=== PATIENT | female | born 1940 | race Caucasian/White ===

== ENCOUNTER 2020-06-23 09:19 | Inpatient (IN) | payer MEDICARE, OTHER, SELFPAY ==
[2020-06-23] VITALS (35 sets, daily range): BP systolic 102–138; BP diastolic 63–98; PULSE 84–122; RESP 12–30; TEMP 36.1–36.4; O2SAT 82–100; BMI 24.4
--- NOTE | ~2020-06-23 | XR_ITS ---
EXAMINATION: XR chest 2V EXAM DATE: 06/25/2020 10:15 INDICATION: CHF. TECHNIQUE: Frontal and lateral projections of the chest obtained and reviewed. Comparison is made to prior examination from 06/23/2020. FINDINGS: Severe cardiomegaly. Pulmonary vascular congestion. Small to moderate bilateral pleural ef fusions. Adjacent atelectasis. Probable basilar pulmonary edema. Pneumonia not excludable. No pneumot horax. The bones are osteopenic. There are bony degenerative changes. There are old right rib fractu res. Cardiac monitoring device. Bilateral upper lobe granulomata. IMPRESSION: 1. Cardiomegaly, congestion, pulmonary edema. 2. Small to moderate pleural effusions, adjacent atelectasis. Reviewed, dictated and finalized at location A. ENTARY ASSISTANT PRINCIPAL
--- NOTE | ~2020-06-23 | XR_ITS ---
EXAMINATION: XR chest 1V portable EXAM DATE: 06/23/2020 10:05 INDICATION: Cough. TECHNIQUE: Portable AP frontal chest x-ray was obtained. Comparison is made to prior examination from 07/20/2018. FINDINGS: There is cardiomegaly and pulmonary vascular congestion. Small to moderate bilateral pleura l effusions with adjacent atelectasis. Additional bibasilar edema or infection. No pneumothorax. Left upper lobe granuloma. The bones are osteopenic. There are bony degenerative changes. Old right rib fractures. Cardiac monitoring device. Compared to prior study the pleural effusions and adjacent airspace disease have developed. IMPRESSION: 1. Findings consistent with CHF exacerbation. 2. Small to moderate pleural effusions, adjacent subsegmental atelectasis. 3. Infection not excludable. Reviewed, dictated and finalized at location B. OMS OPENER VERIFIER PACKER
--- NOTE | ~2020-06-23 | US_ITS ---
EXAMINATION: US venous doppler LE EXAM DATE: 06/23/2020 11:02 INDICATION: Bilateral leg pain. TECHNIQUE: Multiple grayscale, color flow and Doppler images of the lower extremity deep venous syste ms bilaterally were obtained and reviewed. There is no prior study for comparison. FINDINGS: Right side: The right common femoral, femoral and profunda veins demonstrate normal color flow, respi ratory variation, augmentation and compressibility. Compressibility, color flow confirmed within the right popliteal, posterior tibial, peroneal, and greater saphenous veins. Left side: The left common femoral, femoral and profunda veins demonstrate normal color flow, respira tory variation, augmentation and compressibility. Compressibility, color flow confirmed within the l eft popliteal, posterior tibial, peroneal, and greater saphenous veins. IMPRESSION: 1. No lower extremity deep venous thrombosis bilaterally. Reviewed, dictated and finalized at location B. NOLOGY STRATEGIST
--- NOTE | ~2020-06-23 | CT_ITS ---
EXAMINATION: CT brain wo con INDICATION: Head injury COMPARISON: 10/14/2017 TECHNIQUE: Standard unenhanced head CT. The dose-length product (DLP) was 681.00 mGy-cm. The mA was a djusted according to patient size. Iterative reconstruction technique was employed. FINDINGS: There is a left parietal scalp hematoma. There is no acute intraparenchymal hemorrhage. No evidence of mass lesion. No evidence of acute infarction. There is moderate periventricular and subco rtical hypodensity probably related to small vessel ischemic disease. There is moderate prominence of the sulci and ventricles related to cerebral atrophy. Intracranial calcified cerebral atherosclerosi s is noted. There are no extra-axial collections. There is no mass effect or midline shift. Changes i n the globes are likely from ocular lens surgery. The visualized sinuses and mastoid air cells are w ell aerated. IMPRESSION: 1. Left parietal scalp hematoma without acute intracranial abnormality. 2. Age related findings. Reviewed, dictated and finalized at location A. MATIC DEICER INSPECTOR
--- NOTE | ~2020-06-23 | CT_ITS ---
EXAMINATION: CTA chest PE protocol EXAM DATE: 06/23/2020 11:05 INDICATION: Swollen legs. Abnormal chest x-ray. Cough. TECHNIQUE: Spiral CTA of the chest (pulmonary arteries) was performed with 100 cc Omnipaque 350 intr avenous contrast injection. Images were acquired during the pulmonary arterial phase. Coronal maxi mum intensity projection 3D-reconstructions were created by the technologist on dedicated workstation . Axial, coronal and sagittal reformatted images were reviewed. The dose-length product (DLP) for t his examination was 264.45 mGy-cm. The exposure was tailored according to patient size (auto mA exp osure control), and iterative reconstruction (ASIR) was used as additional dose reduction technique. There is no prior study for comparison. FINDINGS: Pulmonary arteries are well opacified and without intraluminal filling defects. No thora cic aortic dissection. Small to moderate right, small left pleural effusions. There is low lung volu me with scattered bibasilar atelectasis, segmental in the lower lobes. There is moderate sliding saman roesophageal hiatal hernia. Tracheobronchial tree is patent. There is no mediastinal, hilar or axi llary lymphadenopathy. There is no pneumothorax. There is cardiomegaly. There is small pericardia l effusion. Mild emphysema. There is moderate coronary arterial calcification, arterial sclerosis. Upper abdomen is unremarkable. There is thoracic spondylosis without osteoblastic or osteolytic les ions identified. There are old rib fractures. Small right thyroid nodules. IMPRESSION: 1. Cardiomegaly, pulmonary vascular congestion. Small pericardial effusion. 2. Small to moderate right, small pleural effusions. Adjacent bibasilar atelectasis. 3. Moderate-sized hiatal hernia. Reviewed, dictated and finalized at location B. ECTION CONSULTANT IMPRESSION: 1. Cardiomegaly, pulmonary vascular congestion. Small pericardial effusion. 2. Small to moderate right, small pleural effusions. Adjacent bibasilar atelec tasis. 3. Moderate-sized hiatal hernia.
--- NOTE | ~2020-06-23 | XR_ITS ---
EXAMINATION: XR hand LT 2V EXAM DATE: 06/24/2020 08:34 INDICATION: Initial encounter following injury, with pain of the left hand. TECHNIQUE: Frontal and lateral projections of the left hand. There is no prior study for comparison . FINDINGS: Bones are osteopenic. Please note that osteopenia limits sensitivity for detecting fractur es by radiographs. There is mildly widened scapholunate joint space consistent with at least partia l dissociation, age indeterminate. This is better visualized than on the wrist examination from [facility]. There is persistent swelling over the posterior aspect of the wrist. There is posterior angulation to the shaft of the left 5th distal phalanx, probably an old fracture. IMPRESSION: 1. Left wrist soft tissue swelling. Osteopenia limiting sensitivity; consider left wrist CT scan to e valuate possibility of nondisplaced radiographically occult fracture. 2. At least partial scapholunate dissociation, age indeterminate. Reviewed, dictated and finalized at location A. D ARTILLERY OPERATIONS SPECIALIST IMPRESSION: 1. Left wrist soft tissue swelling. Osteopenia limiting sensitivity; consider l eft wrist CT scan to evaluate possibility of nondisplaced radiographically occu lt fracture. 2. At least partial scapholunate dissociation, age indeterminate.
--- NOTE | ~2020-06-23 | XR_ITS ---
EXAMINATION: XR femur RT min 2V EXAM DATE: 06/24/2020 08:34 INDICATION: Initial encounter following injury, with pain of the right femur. TECHNIQUE: Right femur frontal and lateral projections of the proximal aspect, frontal and lateral pr ojections of the lower aspect for review. There is no prior study for comparison. FINDINGS: There are no acute right femur fractures or dislocations identified. There is no subcutane ous gas. There is scattered arteriosclerotic disease. Right inguinal region surgical clips. IMPRESSION: 1. XR femur RT min 2V exam without acute osseous findings. Reviewed, dictated and finalized at location A. ECT INSPECTOR
--- NOTE | ~2020-06-23 | XR_ITS ---
EXAMINATION: XR chest 2V DATE: 06/29/2020 07:52 INDICATION: Pneumonia TECHNIQUE: frontal and lateral views of the chest were obtained. COMPARISON: Chest radiograph dated 06/25/[address] dated 06/23/2020 FINDINGS: Opacities in the bilateral lower lung zones consistent with small bilateral pleural effusions and ass ociated basilar atelectasis and/or pneumonia. Calcified nodule at the left upper lung zone consistent with old granulomatous disease. No pneumothorax. Large hiatal hernia. Cardiomegaly. Old bilateral ri b fractures. Implantable monitoring and evaluation advisor projects over the left upper quadrant. IMPRESSION: 1. Small bilateral pleural effusions with bibasilar atelectasis and/or pneumonia. 2. Cardiomegaly. 3. Large hiatal hernia. Reviewed, dictated and finalized at location A. IT CONTROL ADMINISTRATOR IMPRESSION: 1. Small bilateral pleural effusions with bibasilar atelectasis and/or pneumoni a. 2. Cardiomegaly. 3. Large hiatal hernia.
--- NOTE | ~2020-06-23 | XR_ITS ---
EXAMINATION: XR hip RT 2V w AP pelvis EXAM DATE: 06/24/2020 08:34 INDICATION: Initial encounter following injury, with pain of the right hip, pelvis. TECHNIQUE: Right hip frontal, 'frog leg' projections for interpretation. Frontal projection pelvis. Correlation is made to right femur exam same date. FINDINGS: Smooth right hip femoral head contour, no radiographic evidence of avascular necrosis. The re are no acute fractures or dislocations identified. There is no subcutaneous gas. There are arter ial calcifications, arteriosclerosis. Right inguinal surgical clips. Pelvic ring appears intact. Th ere is moderate bilateral hip arthritis. IMPRESSION: 1. XR hip RT 2V w AP pelvis exam without acute osseous findings. 2. Moderate bilateral hip arthritis. Reviewed, dictated and finalized at location A. ESENTATIVE
--- NOTE | ~2020-06-23 | CT_ITS ---
EXAMINATION: CT cervical spine wo con EXAM DATE: 06/23/2020 10:44 INDICATION: Head injury. TECHNIQUE: Spiral CT of the cervical spine was performed without contrast. Axial images were reviewe d. Coronal and sagittal reformatted images were also reviewed. The dose-length product (DLP) for thi s examination was 149.70 mGy-cm. The exposure was tailored according to patient size (auto mA exposu re control), and iterative reconstruction (ASIR) was used as additional dose reduction technique. Th ere is no prior study for comparison. FINDINGS: There is 3 mm degenerative anterolisthesis C4 on C5. There is no evidence of acute cervical fracture. The odontoid process is intact. Pre-dens space is normal. Prevertebral soft tissue is n ormal. There are no soft tissue abnormalities identified. There is no disc space widening or trauma tic vertebral body subluxation suspected. Overall moderate cervical spondylosis. A detailed level b y level evaluation of spondylosis can be added as addendum if requested. IMPRESSION: 1. No acute cervical fracture. 2. Moderate cervical spondylosis. Reviewed, dictated and finalized at location B. HIC MANAGER
--- NOTE | ~2020-06-23 | XR_ITS ---
EXAMINATION: XR wrist LT min 3V EXAM DATE: 06/23/2020 10:06 INDICATION: Initial encounter following injury, with pain of the left wrist. TECHNIQUE: Left wrist frontal, frontal with ulnar deviation, oblique and lateral projections obtained and reviewed. There is no prior study for comparison. FINDINGS: Bones are osteopenic. Please note that osteopenia limits sensitivity for detecting fractu res by radiographs. Suspicion of an old left distal radial metaphyseal fracture. There are no acute l eft wrist fractures or dislocations identified. There is no subcutaneous gas. There is soft tissue s welling over the wrist dorsally. IMPRESSION: 1. Osteopenia limiting sensitivity but no acute fracture identified. 2. Posterior soft tissue swelling Reviewed, dictated and finalized at location B. RUMENTS SALES REPRESENTATIVE
--- NOTE | 2020-06-23 10:18 | ED.GENADULT ---
HPI - General Adult General Chief complaint: Extremity Injury, Lower Stated complaint: leg issues Time Seen by Provider: 06/23/20 09:21 Source: patient, family and old records reviewed Mode of arrival: ambulatory Limitations: no limitations History of Present Illness HPI narrative: Patient is 79-year-old female who presents to emergency department for evaluation of right leg swelling that developed over the last couple of days patient had also notes that a week ago she fell at home which is described as mechanical noting history of unstable gait falling striking the head patient was not seen for this also noting that she injured the left wrist patient today notes that she is concerned about her right leg swelling which is new. Patient notes some chronic dyspnea attributed to asthma but denies chest pain or URI symptoms. Patient does note history of possible heart failure secondary to atrial fibrillation is not currently on anticoagulation Related Data Home Medications Medication Instructions Recorded Confirmed albuterol sulfate 90 mcg/actuation 2 puff INHALATION Q4-6H PRN gm 07/29/19 aerosol inhaler atorvastatin 40 mg tablet 40 mg PO DAILY 07/29/19 calcitriol 0.25 mcg capsule 0.25 mcg PO DAILY 07/29/19 carvedilol 6.25 mg tablet 6.25 mg PO Q12H 07/29/19 clopidogrel 75 mg tablet 75 mg PO DAILY 07/29/19 ergocalciferol (vitamin D2) 1,250 1,250 mcg PO WEEKLY 07/29/19 mcg (50,000 unit) capsule insulin lispro 100 unit/mL 1 sliding scale dose SUB-Q 07/29/19 subcutaneous solution USEASDIRECTD mometasone-formoterol HFA 100 2 puff INHALATION Q12H 07/29/19 mcg-5 mcg/actuation aerosol inhaler pantoprazole 20 mg tablet,delayed 20 mg PO QAM 07/29/19 release polyethylene glycol 3350 17 17 gm PO DAILY 07/29/19 gram/dose oral powder thyroid (pork) 30 mg tablet 30 mg PO .SUN-SUN-SUN tablet 07/29/19 insulin glargine 100 unit/mL 15 unit SUB-Q BID ml 07/30/19 subcutaneous solution Allergies Allergy/AdvReac Type Severity Reaction Status Date / Time mercury (elemental) Allergy Intermediate Rash Verified 01/28/20 14:17 lisinopril Allergy Mild raise Verified 01/28/20 14:17 potassium erythromycin base Allergy Unknown rash Verified 01/28/20 14:17 Macrolide Antibiotics Allergy Unknown Rash Verified 01/28/20 14:17 Penicillins Allergy Unknown Rash Verified 01/28/20 14:17 Sulfa (Sulfonamide Allergy Unknown Rash Verified 01/28/20 14:17 Antibiotics) MYCIN Allergy Mild Rash Uncoded 01/28/20 14:17 Review of Systems Review of Systems: All systems reviewed & are unremarkable except as noted in HPI and below PMFSH Past Medical History Medical History GERD (gastroesophageal reflux disease) H/O gastric ulcer Paroxysmal A-fib Surgical History Surgical History S/P laparoscopic-assisted sigmoidectomy Status post partial thyroidectomy Family History Family History Mother Family history of diabetes mellitus in first degree relative Other Diabetes mellitus Social History Social History Smoking status: Never smoker Second hand tobacco smoke exposure: Yes Alcohol intake: current Drinks per week: 4 Substance use: never Substance use type: does not use Gender identity (if verbalized by the patient): Female Exam Narrative: Exam Narrative: GENERAL: Ill-appearing, well-nourished, and in no acute distress. HEAD: Normocephalic, atraumatic. EYES: PERRLA and EOMI. ENT: Nares clear, no rhinorrhea or epistaxis. Mucous membranes moist. NECK: Supple. No adenopathy or masses. CHEST: Clear to auscultation. No respiratory distress. No wheezes rales or rhonchi HEART: Irregularly irregular rhythm, normal rate. No murmur heard. Normal peripheral pulses. ABDOMEN: Soft, nontender, no
[2020-06-23 10:20] LABS: Basophils Percent Auto 0.6 % (0.2-1.2); Eosinophils Absolute Auto 0.2 K/mm3 (0-0.3); Eosinophils Percent Auto 4.2 % (0-4.4); Hematocrit 32.6 % (37.0-47.0); Hemoglobin 9.6 g/dL (12.0-15.0); Immature Granulocyte Absolute 0.02 K/mm3 (0.00-0.031); Immature Granulocyte Percent A 0.4 % (0-0.5); Lymphocytes Absolute Auto 0.71 K/mm3 (0.9-3.2); Lymphocytes Percent Auto 13.7 % (18.3-44.2); Mean Corpuscular HGB Conc 29.4 g/dl (32-36); Mean Corpuscular Hemoglobin 26.5 pg (26-34); Mean Corpuscular Volume 90.1 fl (80-100); Monocytes Absolute Auto 0.5 K/mm3 (0.1-0.6); Monocytes Percent Auto 9.2 % (2.6-8.5); Neutrophils Absolute Auto 3.7 K/mm3 (1.3-6.7); Neutrophils Percent Auto 71.9 % (45.5-73.1); Platelet Count Result 279 k/mm3 (150-375); Red Blood Count 3.62 M/mm3 (4.2-5.4); White Blood Count 5.2 K/mm3 (4.5-10.0)
[2020-06-23 10:29] LABS: INR 1.1; Partial Thromboplastin Time 25.6 SECONDS (22.3-36.8); Prothrombin Time 14.5 Seconds (11.1-14.7)
[2020-06-23 10:31] LABS: Hypochromasia 1+ (NORMAL); Ovalocytes 1+ (NORMAL); Platelet Estimate Adequate (Adequate)
[2020-06-23] MEDS: ALBUTEROL SULFATE NEB 2.5 MG/0.5 ML INH 5 MG INHALATION ×2 (10:31→21:29)
[2020-06-23] MEDS: IPRATROPIUM BR 0.02% INH SOLN 0.5 MG/2.5 ML VIAL INHALATION ×2 (10:31→21:29)
[2020-06-23 10:32] LABS: D Dimer 2.55 ug/mL (<0.48)
[2020-06-23 10:37] LABS: Alanine Aminotransferase 11 U/L (4-35); Albumin Level 2.8 g/dL (3.5-5.1); Alkaline Phosphatase 114 U/L (38-126); Anion Gap 3 mmol/L (8-16); Aspartate Amino Transferase 21 U/L (14-36); Bilirubin,Total 0.4 mg/dL (0.2-1.3); Blood Urea Nitrogen 12 mg/dL (7-17); Calcium 8.8 mg/dL (8.4-10.2); Carbon Dioxide 31 mmol/L (22-30); Chloride 105 mmol/L (98-107); Estimated CRCL calculation 44 ml/min; Estimated Glomerular Filt Rate > 60; Glucose 113 mg/dL (65-105); Magnesium 1.4 mg/dL (1.6-2.3); Potassium 3.9 mmol/L (3.4-5.0); Sodium 139 mmol/L (137-145)
[2020-06-23 10:38] LABS: Alveolar/Arterial O2 Gradient 48.8 mmHg; Base Excess ABG -2.4 mEq/l (+/-2.0); Fractional Inspired Oxygen 21 %; HCO3 ABG 24.5 mEq/l (22.0-26.0); Oxygen Content ABG 10.4 %vol (16.0-22.0); Oxyhemoglobin 67.9 % THb (90.0-100.0); PCO2 ABG 51.8 mmHg (35.0-45.0); PO2 FiO2 Ratio Arterial Blood 1.85 %; Total Hemoglobin 10.9 g/dL (12.0-18.0); pH ABG 7.293 (7.350-7.450)
[2020-06-23 10:44] LABS: NT Pro B Type Natriuretic Pept 8010 PG/ML (5-100)
[2020-06-23 10:46] LABS: Device ROOM AIR; Modified Allen's Test Pass; Oxygen Saturation ABG 66.8 % (95.0-100.0); PO2 ABG 38.9 mmHg (80.0-100.0); Site Drawn LEFT RADIAL
[2020-06-23 10:55] LABS: Creatine Kinase 28 U/L (30-135); Phosphorus 3.9 mg/dL (2.5-4.5)
[2020-06-23] MEDS: FUROSEMIDE INJ 40 MG/4 ML VIAL IV PUSH (11:17)
[2020-06-23 11:50] LABS: Add Urine Microscopic? NO; Appearance Urine Clear (Clear); Bilirubin Urine Negative (Negative); Blood Urine Negative (Negative); Color Urine Yellow (Yellow); Glucose Urine UA Negative (Negative); Ketones Urine Negative (Negative); Leukocyte Esterase Ur Negative LEU/UL (Negative); Nitrate Urine Negative (Negative); Protein Urine Negative (Negative); Specific Grav Ur 1.026 (1.001-1.035); Squamous Epithelial Cell Urine Rare /hpf (Few); Urobilinogen Urine Negative mg/dL (<2.0); WBC Urine 0-3 /hpf
[2020-06-23 12:31] LABS: Troponin I < 0.012 ng/mL (0.000-0.034)
--- NOTE | 2020-06-23 12:36 | ECG_ITS ---
Measurements Intervals [place] Rate: 100 P: TN: 0 QRS: 18 QRSD: 94 T: 41 QT: 340 QTc: 440 Interpretive Statements ATRIAL FIBRILLATION WITH RAPID VENTRICULAR RESPONSE BASELINE ARTIFACT- III ABNORMAL ECG Electronically Signed On 06-23-2020 13:17:03 COMMERCIAL LINES INSURANCE AGENT by Greg Barr D.O.
--- NOTE | 2020-06-23 13:49 | PM.IMHP ---
H&P: HPI History of Present Illness Date/Time: 06/23/20 13:49 Chief Complaint: Swelling to her lower extremities Narrative: Rina Latif is a 79 year old female of right leg swelling. She has some abrasions to her right leg and venous stasis ulcers that are weeping to the left lower extremity. The patient tells me that she has had a broken leg to the right side that she has had [place] in the past. The patient stated that about a week ago she fell at home was a mechanical fall Q fell on stable and fell and hit her head which shows a large hematoma to the back of her head and a large purple bruise to the left side of her neck. She said she did not feel dizzy or have any chest pain or palpitations prior to falling. She tells me that she has not had any history of irregular heart rate or congestive heart failure. Cardiology has been consulted for new onset of AFib which is paroxysmal I am possible CHF. Patient is not on any anticoagulation.9.6 and 32.6. Patient is awake and very talkative. However on her ABGs her pH of 7.293. CO2 was 51.8 PO2 is 38.9. Could this possibly be venous drawn not arterial. Vascular congestion. Small pericardial effusion. Small to moderate right small pleural effusions. Adjacent bibasilar atelectasis. Moderate size hiatal hernia. Venous Dopplers no lower extremity deep vein thrombosis bilaterally. Cervical spine CT was read as no acute cervical fracture moderate cervical spondylosis. Head CT left parietal scalp hematoma without a to intracranial abnormality. Age-related findings. D-dimer 2.55 however her venous Doppler and CTA were negative. BNP 8010. Patient was given a nebulizer treatment and Lasix. Cardiology has been consulted. Heart rate is 93-105. Blood pressure 108/74. Pulse ox is 99% on room air. Patient is being admitted for observation date of service is 06/23/2020. Review of Systems Review of Systems: All systems reviewed & are unremarkable except as noted in HPI and below Constitutional: Constitutional: Reports as per HPI and Reports no additional constitutional complaints Eyes: Eyes: Reports as per HPI and Reports no additional eye complaints ENT: Reports system reviewed and no additional complaints, except as documented and Reports Normal hearing present Cardiovascular: Cardiovascular: Reports no additional cardiovascular complaints Respiratory: Respiratory: Reports no additional respiratory complaints and Reports no additional respiratory complaints Gastrointestinal: Gastrointestinal: Reports as per HPI and Reports no additional gastrointestinal complaints Musculoskeletal: Musculoskeletal: Reports no additional musculoskeletal complaints Integumentary/Breasts: Skin/Breast: Reports system reviewed and no additional complaints, except as docu and Reports as per HPI Neurologic: Reports system reviewed and no additional complaints, except as documented, Reports as per HPI and Reports Normal hearing present Psychiatric: Psychiatric: Reports no additional psychiatric complaints and Reports as per HPI Endocrine: Endocrine: Reports no additional endocrine complaints Hematologic/Lymphatic: Hematologic/Lymphatic: Reports no additional hematologic/lymphatic complaints Allergic/Immunologic: Allergic/Immunologic: Reports no additional allergic/immunologic complaints [facility] Past Medical History Medical History (Updated 06/23/20 @ 14:22 by Graciela Aguiar NP) Acute exacerbation of CHF (congestive heart failure) Acute exacerbation of chronic obstructive pulmonary disease GERD (gastroesophageal reflux disease) H/O gastric ulcer Hyperlipidemia Hypothyroidism Paroxysmal A-fib Type 1 diabetes mellitus with hyperglycemia Venous stasis Surgical History Surgical History (Updated 06/23/20 @ 14:06 by Graciela Aguiar NP) History of heart artery stent X2 History of loop recorder S/P laparoscopic-assisted sigmoidectomy Status post partial thyroidectomy Family History Family History
[2020-06-23 14:04] LABS: Glucose Point of Care 43 (65-105)
--- NOTE | 2020-06-23 14:07 | PC.NURSE ---
Pt. BG 43, EDP aware. EDP requested to give Pt. food via verbal order readback. Pt. AOx4 at this time. Pt. given a box lunch and a tray
[2020-06-23 14:43] LABS: Glucose Point of Care 41 (65-105)
[2020-06-23] MEDS: DEXTROSE 50% 25 GM/50 ML SYRINGE IV PUSH (14:49)
--- NOTE | 2020-06-23 15:02 | PCOTNOTE ---
OT evaluation attempted, patient not yet admitted to floor. Will attempt OT evaluation at later time.
[2020-06-23 15:20] LABS: Glucose Point of Care 148 (65-105)
--- NOTE | 2020-06-23 15:20 | ADMGEN ---
This patient, Rina Latif, was admitted to 2 Medical Room 260-. Patient/family oriented to hospital policies and general routines including ID bracelet, bed and alarms, visiting hours, pain management, procedures, bathroom and other care routines, personal items, smoking policy, room service/diet, and visiting hours. Information on how to activate the Rapid Response Team has been discussed. Patient/Family are encouraged to report perceived risks to care and to ask questions if they do not understand what they are told or what they should do.
[2020-06-23] MEDS: SILVERGEL (ELTA) 45 ML 1 APPLIC TOPICAL (16:22)
[2020-06-23 16:24] LABS: Glucose Point of Care 237 (65-105)
[2020-06-23] MEDS: INSULIN GLARGINE (*BKC) 100 UNITS/ML 15 UNITS SUB-Q (18:14)
[2020-06-23 18:21] LABS: Glucose Point of Care 342 (65-105)
--- NOTE | 2020-06-23 18:21 | PC.NURSE ---
Patient has been extremely argumentative since arrival to the floor. Discussed plan of care, medications, hospital environment details, etc. Every conversation had with patient has ended in an argument with staff. Patient angry and upset in regards to insulin orders. In the ER, patients glucose prior to arrival on floor was 41. Checked patient when she arrived to floor and she was 237 with sliding scale insulin orders. Spoke with Graciela Aguiar who stated to hold Novolog and recheck patient tonight, as she is prone to hypoglycemia. Discussed this with patient and she again is argumentative and unwilling to listen/be receptive to education. Graciela reordered patients home Lantus that she takes at 0600 and 1800. Discussed with patient that I was going to recheck her glucose and administer Lantus if her blood sugar was high enough. Patient agreeable to this but then again becomes angry stating that we are withholding her insulin and making her blood sugars high by not giving her the Novolog. Pt has had 2 full meals since arrival to floor as well as a meal in the ER, in a 3 hour time span. Yet, states it's your fault my sugar is high. I'm just trying to not go blind ..
[2020-06-23] MEDS: DOCUSATE SODIUM 100 MG CAPSULE PO (20:35)
[2020-06-23] MEDS: carvediloL 12.5 MG TABLET PO (20:35)
[2020-06-23 20:45] LABS: Glucose Point of Care 448 (65-105)
[2020-06-23] MEDS: INSULIN ASPART (*BKC) 100 UNITS/ML 6 UNITS SUB-Q (20:50)
[2020-06-23] MEDS: INSULIN ASPART (*BKC) 100 UNITS/ML 8 UNITS SUB-Q (22:55)
--- NOTE | 2020-06-23 23:00 | PC.NURSE ---
Blood sugar remains 421 and 8 units of Novolog given. Pt has very poor memory and does not remember receiving insulin 2 hours ago.
[2020-06-24] VITALS (19 sets, daily range): BP systolic 104–141; BP diastolic 57–85; PULSE 87–125; RESP 15–20; TEMP 36.2–36.8; O2SAT 90–98; BMI 24.4
--- NOTE | 2020-06-24 | ECHO_ITS ---
Patient Info Name: Rina Latif Age: 79 years : 1940 Gender: Female Ht: 67 in Wt: 156 lbs BSA: 1.84 m2 HR: 106 bpm BP: 116 / 73 mmHg Heart Rhythm: Atrial Fibrillation Technical Quality: Good Exam Date: 06/24/2020 9:25 AM Exam Location: [facility] Exam Room: 260 Patient Status: Outpatient Admit Date: 06/23/2020 Staff Ordering Physician: Graciela Aguiar NP Manager Editorial: Stella Hunt RDCS Attending Provider: Miles Hodgson MD Referring Physician: Stefania MEREDITH; Exam Type: CA echo doppler color flow Study Info Indications - elevated bnp cardiolmegaly Complete two-dimensional, color flow and Doppler transthoracic echocardiogram is performed. Summary 1. Left ventricular systolic function is normal, estimated at 65-70%. 2. There is mildly increased left ventricular wall thickness. 3. The left ventricular diastolic function is indeterminate. 4. Right atrial chamber dimension is moderate to severely enlarged. 5. Left atrial chamber dimension is moderately enlarged. 6. There is mild mitral valve regurgitation. 7. There is moderate to severe tricuspid valve regurgitation. 8. Mild pulmonary hypertension, estimated pulmonary arterial systolic pressure is 42 mmHg. 9. Dilated inferior vena cava with <50% collapse upon inspiration consistent with elevated right atrial pressure, 10 mmHg. Left Ventricle Left ventricular chamber dimension is normal. Left ventricular systolic function is normal, estimated at 65-70%. There is mildly increased left ventricular wall thickness. The left ventricular diastolic function is indeterminate. Right Ventricle Right ventricular chamber dimension is normal. Right ventricular systolic function is normal. Left Atria Left atrial chamber dimension is moderately enlarged. Right Atria Right atrial chamber dimension is moderate to severely enlarged. Aortic Valve The aortic valve is not well visualized. There is mild aortic valve sclerosis. There is no aortic valve stenosis. There is trace aortic valve regurgitation. Pulmonic Valve The pulmonic valve is not well visualized. There is mild pulmonic regurgitation. Mitral Valve The mitral valve has thickened leaflets and calcified leaflets. There is mild mitral valve regurgitation. The mitral valve annulus is severely calcified. Tricuspid Valve The tricuspid valve leaflets are normal. There is moderate to severe tricuspid valve regurgitation. Mild pulmonary hypertension, estimated pulmonary arterial systolic pressure is 42 mmHg. Pericardium/Pleural The pericardium appears normal. There is small pericardial effusion. Inferior Vena Cava Dilated inferior vena cava with <50% collapse upon inspiration consistent with elevated right atrial pressure, 10 mmHg. Aorta The aortic root size at the sinus of Valsalva is normal. There is mild aortic atherosclerosis. Left Ventricular Outflow Tract Name Value Normal LVOT 2D LVOT Diameter 2.0 cm LVOT Doppler LVOT Peak Gradient 5 mmHg LVOT Mean Gradient 3 mmHg LVOT VTI
[2020-06-24 01:22] LABS: Glucose Point of Care 421 (65-105)
[2020-06-24 01:22] LABS: Glucose Point of Care 228 (65-105)
[2020-06-24] MEDS: ALBUTEROL SULFATE NEB 2.5 MG/0.5 ML INH 5 MG INHALATION ×4 (02:57→21:17)
[2020-06-24] MEDS: IPRATROPIUM BR 0.02% INH SOLN 0.5 MG/2.5 ML VIAL INHALATION ×4 (02:57→21:17)
[2020-06-24] MEDS: ALBUTEROL SULFATE (*SP) AEROSOL 1 PUFF 2 PUFF INHALATION (05:50)
[2020-06-24] MEDS: DOCUSATE SODIUM 100 MG CAPSULE PO ×3 (05:51→20:46)
[2020-06-24 06:48] LABS: Basophils Percent Auto 0.5 % (0.2-1.2); Eosinophils Absolute Auto 0.2 K/mm3 (0-0.3); Eosinophils Percent Auto 2.8 % (0-4.4); Hematocrit 33.5 % (37.0-47.0); Hemoglobin 9.7 g/dL (12.0-15.0); Immature Granulocyte Absolute 0.02 K/mm3 (0.00-0.031); Immature Granulocyte Percent A 0.3 % (0-0.5); Lymphocytes Absolute Auto 0.63 K/mm3 (0.9-3.2); Lymphocytes Percent Auto 10.4 % (18.3-44.2); Mean Corpuscular Hemoglobin 26.2 pg (26-34); Mean Corpuscular Volume 90.5 fl (80-100); Monocytes Absolute Auto 0.5 K/mm3 (0.1-0.6); Monocytes Percent Auto 8.6 % (2.6-8.5); Neutrophils Absolute Auto 4.7 K/mm3 (1.3-6.7); Neutrophils Percent Auto 77.4 % (45.5-73.1); Platelet Count Result 269 k/mm3 (150-375); White Blood Count 6.1 K/mm3 (4.5-10.0)
[2020-06-24 07:08] LABS: Hypochromasia 2+ (NORMAL); Ovalocytes 1+ (NORMAL); Platelet Estimate Increased (Adequate)
[2020-06-24 07:29] LABS: Glucose Point of Care 38 (65-105)
[2020-06-24 07:29] LABS: Glucose Point of Care 53 (65-105)
[2020-06-24 07:29] LABS: Glucose Point of Care 46 (65-105)
[2020-06-24 07:29] LABS: Glucose Point of Care 167 (65-105)
--- NOTE | 2020-06-24 07:57 | PCOTNOTE ---
Attempted OT evaluation - Patient off floor for testing. Will continue to attempt.
[2020-06-24 08:06] LABS: Alanine Aminotransferase 10 U/L (4-35); Albumin Level 2.9 g/dL (3.5-5.1); Alkaline Phosphatase 103 U/L (38-126); Anion Gap 3 mmol/L (8-16); Aspartate Amino Transferase 19 U/L (14-36); Bilirubin,Total 0.4 mg/dL (0.2-1.3); Blood Urea Nitrogen 22 mg/dL (7-17); CRP 1.5 mg/dL (<1.0); Calcium 8.7 mg/dL (8.4-10.2); Carbon Dioxide 35 mmol/L (22-30); Chloride 101 mmol/L (98-107); Estimated CRCL calculation 36 ml/min; Estimated Glomerular Filt Rate 48; Glucose 112 mg/dL (65-105); Magnesium 1.3 mg/dL (1.6-2.3); Potassium 4.4 mmol/L (3.4-5.0); Sodium 139 mmol/L (137-145)
--- NOTE | 2020-06-24 08:10 | PC.NURSE ---
Patient to XR per stretcher.
--- NOTE | 2020-06-24 09:21 | PCOTNOTE ---
Attempted OT evaluation again this AM. Patient receiving breathing treatment then an echocardiogram. Will continue to attempt.
[2020-06-24] MEDS: CLOPIDOGREL BISULFATE 75 MG TABLET PO (09:23)
[2020-06-24] MEDS: carvediloL 12.5 MG TABLET PO ×2 (09:23→20:47)
[2020-06-24] MEDS: ATORVASTATIN 40 MG TABLET PO (09:23)
[2020-06-24] MEDS: FUROSEMIDE INJ 40 MG/4 ML VIAL IV PUSH ×2 (09:23→17:18)
[2020-06-24] MEDS: amLODIPine BESYLATE 5 MG TABLET PO (09:23)
[2020-06-24] MEDS: PANTOPRAZOLE SOD SESQUIHYDRATE 20 MG TAB PO (09:23)
--- NOTE | 2020-06-24 09:30 | PC.NURSE ---
Patient return from XR.
[2020-06-24 10:10] LABS: Free T4 Free Thyroxine Reflex 1.13 ng/dL (0.78-2.19)
[2020-06-24 11:33] LABS: Total Triiodothyronine (T3) 1.03 NG/ML (0.97-1.69)
[2020-06-24 11:54] LABS: Glucose Point of Care 286 (65-105)
[2020-06-24] MEDS: INSULIN ASPART (*BKC) 100 UNITS/ML SUB-Q ×2 (11:56→11:57)
--- NOTE | 2020-06-24 14:30 | PM.IMPN ---
Progress Note: A&P Assessment and Plan (1) Paroxysmal A-fib: Code(s): I48.0 - Paroxysmal atrial fibrillation Status: Chronic Assessment and Plan: This is chronic ice on EKG back from 2017. She is not anticoagulated because she has frequent falls. Continue with her current medications she is rate controlled. She was negative for PE and DVT today. (2) Acute exacerbation of CHF (congestive heart failure): Code(s): I50.9 - Heart failure, unspecified Status: Chronic Assessment and Plan: I did obtain an echo. The patient denies fact that she has CHF. Continue with Coreg and she has been started on IV Lasix she has some edema to her lower extremities. Chest x-ray was read as cardiomegaly. (3) Type 1 diabetes mellitus with hyperglycemia: Code(s): E10.65 - Type 1 diabetes mellitus with hyperglycemia Status: Chronic Assessment and Plan: Continue with her long-acting insulin will do sliding scale insulin as well. Patient's blood sugars 48 and she has a history of having hypoglycemia. Patient is been asking for food in the emergency room. (4) Venous stasis: Code(s): I87.8 - Other specified disorders of veins Status: Chronic Assessment and Plan: Patient tells me she has been dealing with this for years. Wound care consult has been placed. (5) Hypothyroidism: Code(s): E03.9 - Hypothyroidism, unspecified Status: Chronic Assessment and Plan: Check thyroid level and continue with her levothyroxine. Patient has had a history of having a partial thyroidectomy in the past. (6) Hyperlipidemia: Code(s): E78.5 - Hyperlipidemia, unspecified Status: Acute Assessment and Plan: Continue with atorvastatin. (7) Acute exacerbation of chronic obstructive pulmonary disease: Code(s): J44.1 - Chronic obstructive pulmonary disease with (acute) exacerbation Status: Chronic Assessment and Plan: Continue with Dulera if formulary. (8) Gait instability: Code(s): R26.81 - Unsteadiness on feet Status: Acute Assessment and Plan: PT and OT evaluation patient has a large hematoma to the back of her head and bruising to her neck. CT of the brain was found to be negative. CT of the neck was negative. Patient states that she just loses her balance. (9) Chronic kidney disease, stage III (moderate): Code(s): N18.3 - Chronic kidney disease, stage 3 (moderate) Status: Acute Assessment and Plan: Patient's GFR is normal today. (10) History of coronary artery stent placement: Code(s): Z95.5 - Presence of coronary angioplasty implant and graft Status: Acute Assessment and Plan: Patient is on Plavix and she is had 2 stents in the past. Subjective Date/time seen: 06/24/20 14:30 Interval history: Patient was seen during the morning rounds today. Patient has mild shortness of breath no chest pain. Patient denies any abdominal pain nausea vomiting or diarrhea. More stable. Review of Systems Review of Systems: All systems reviewed & are unremarkable except as noted in HPI and below Constitutional: Constitutional: Reports as per HPI and Reports no additional constitutional complaints Eyes: Eyes: Reports as per HPI and Reports no additional eye complaints ENT: Reports system reviewed and no additional complaints, except as documented and Reports Normal hearing present Cardiovascular: Cardiovascular: Reports no additional cardiovascular complaints Respiratory: Respiratory: Reports no additional respiratory complaints and Reports no additional respiratory complaints Gastrointestinal: Gastrointestinal: Reports as per HPI and Reports no additional gastrointestinal complaints Musculoskeletal: Musculoskeletal: Reports no additional musculoskeletal complaints Integumentary/Breasts: Skin/Breast: Reports system reviewed and no additional complaints, except as docu and Reports as per HPI
[2020-06-24 17:06] LABS: Glucose Point of Care 428 (65-105)
[2020-06-24] MEDS: POTASSIUM CHLORIDE 20 MEQ PACKET (FOR LIQUID) PO (17:18)
[2020-06-24] MEDS: SILVERGEL (ELTA) 45 ML 1 APPLIC TOPICAL (17:19)
[2020-06-24] MEDS: INSULIN ASPART (*BKC) 100 UNITS/ML 15 UNITS SUB-Q (17:20)
--- NOTE | 2020-06-24 17:33 | PC.NURSE ---
Patients blood sugar for dinner is 428. Called to notify Dr. Stearns and received orders to give her 15units Novolog with evening meal and increase Lantus to 20U (from 15U). Administered patients insulin with evening meal and she began throwing a fit. She is stating this is entirely too much insulin. Again, reiterated and educated in regards to glucose results. However, patient not receptive or willing to listen to staff education. Patient stating to SNT, my nurse is going to kill me tonight. She gave me too much insulin and I'm going to tonight.
[2020-06-24 18:29] LABS: Glucose Point of Care 368 (65-105)
[2020-06-24 20:19] LABS: Glucose Point of Care 251 (65-105)
[2020-06-24] MEDS: MAGNESIUM OXIDE 200 MG TABLET PO (20:45)
[2020-06-24] MEDS: HEPARIN SODIUM 5,000 UNITS/ML VIAL 5000 UNITS SUB-Q (20:48)
[2020-06-24] MEDS: INSULIN GLARGINE (*BKC) 100 UNITS/ML 20 UNITS SUB-Q (20:48)
[2020-06-25] VITALS (24 sets, daily range): BP systolic 94–121; BP diastolic 48–81; PULSE 95–124; RESP 16–20; TEMP 36.3–37.1; O2SAT 78–99
[2020-06-25] MEDS: IPRATROPIUM BR 0.02% INH SOLN 0.5 MG/2.5 ML VIAL INHALATION ×4 (01:56→20:42)
[2020-06-25] MEDS: ALBUTEROL SULFATE NEB 2.5 MG/0.5 ML INH 5 MG INHALATION ×4 (01:56→20:42)
[2020-06-25] MEDS: ACETAMINOPHEN 325 MG TABLET 650 MG PO (06:18)
[2020-06-25] MEDS: DOCUSATE SODIUM 100 MG CAPSULE PO ×3 (06:18→21:58)
[2020-06-25 07:45] LABS: Glucose Point of Care 184 (65-105)
--- NOTE | 2020-06-25 08:42 | PM.IMPN ---
Progress Note: A&P Assessment and Plan (1) Paroxysmal A-fib: Code(s): I48.0 - Paroxysmal atrial fibrillation Status: Chronic Assessment and Plan: This is chronic ice on EKG back from 2017. She is not anticoagulated because she has frequent falls. Continue with her current medications she is rate controlled. She was negative for PE and DVT today. (2) Acute exacerbation of CHF (congestive heart failure): Code(s): I50.9 - Heart failure, unspecified Status: Chronic Assessment and Plan: I did obtain an echo. The patient denies fact that she has CHF. Continue with Coreg and she has been started on IV Lasix she has some edema to her lower extremities. Chest x-ray was read as cardiomegaly. (3) Type 1 diabetes mellitus with hyperglycemia: Code(s): E10.65 - Type 1 diabetes mellitus with hyperglycemia Status: Chronic Assessment and Plan: Continue with her long-acting insulin will do sliding scale insulin as well. Patient's blood sugars 48 and she has a history of having hypoglycemia. Patient is been asking for food in the emergency room. (4) Venous stasis: Code(s): I87.8 - Other specified disorders of veins Status: Chronic Assessment and Plan: Patient tells me she has been dealing with this for years. Wound care consult has been placed. (5) Hypothyroidism: Code(s): E03.9 - Hypothyroidism, unspecified Status: Chronic Assessment and Plan: Check thyroid level and continue with her levothyroxine. Patient has had a history of having a partial thyroidectomy in the past. (6) Hyperlipidemia: Code(s): E78.5 - Hyperlipidemia, unspecified Status: Acute Assessment and Plan: Continue with atorvastatin. (7) Acute exacerbation of chronic obstructive pulmonary disease: Code(s): J44.1 - Chronic obstructive pulmonary disease with (acute) exacerbation Status: Chronic Assessment and Plan: Continue with Dulera if formulary. (8) Gait instability: Code(s): R26.81 - Unsteadiness on feet Status: Acute Assessment and Plan: PT and OT evaluation patient has a large hematoma to the back of her head and bruising to her neck. CT of the brain was found to be negative. CT of the neck was negative. Patient states that she just loses her balance. (9) Chronic kidney disease, stage III (moderate): Code(s): N18.3 - Chronic kidney disease, stage 3 (moderate) Status: Acute Assessment and Plan: Patient's GFR is normal today. (10) History of coronary artery stent placement: Code(s): Z95.5 - Presence of coronary angioplasty implant and graft Status: Acute Assessment and Plan: Patient is on Plavix and she is had 2 stents in the past. Additional Plan Plan is to continue current treatment. Increase activity. Possible discharge tomorrow. Left hand x-ray noted. Patient advised to wear his bandage. Subjective Date/time seen: 06/25/20 08:42 Interval history: Patient was seen during the morning rounds today. Patient has mild shortness of breath no chest pain. Patient denies any abdominal pain nausea vomiting or diarrhea. More stable. No new complaints today. Review of Systems Review of Systems: All systems reviewed & are unremarkable except as noted in HPI and below Constitutional: Constitutional: Reports as per HPI and Reports no additional constitutional complaints Eyes: Eyes: Reports as per HPI and Reports no additional eye complaints ENT: Reports system reviewed and no additional complaints, except as documented and Reports Normal hearing present Cardiovascular: Cardiovascular: Reports no additional cardiovascular complaints Respiratory: Respiratory: Reports no additional respiratory complaints and Reports no additional respiratory complaints Gastrointestinal: Gastrointestinal: Reports as per HPI and Reports no additional gastrointestinal complaints Musculoskeletal: Mus
[2020-06-25] MEDS: POTASSIUM CHLORIDE 20 MEQ PACKET (FOR LIQUID) PO ×2 (08:58→16:28)
[2020-06-25] MEDS: THYROID 60 MG TABLET PO (08:58)
[2020-06-25] MEDS: CLOPIDOGREL BISULFATE 75 MG TABLET PO (08:59)
[2020-06-25] MEDS: PANTOPRAZOLE SOD SESQUIHYDRATE 20 MG TAB PO (08:59)
[2020-06-25] MEDS: ERGOCALCIFEROL 50,000 UNIT CAPSULE 50000 UNITS PO (08:59)
[2020-06-25] MEDS: INSULIN ASPART (*BKC) 100 UNITS/ML SUB-Q ×4 (09:01→16:30)
[2020-06-25] MEDS: INSULIN GLARGINE (*BKC) 100 UNITS/ML 20 UNITS SUB-Q ×2 (09:01→20:15)
[2020-06-25] MEDS: amLODIPine BESYLATE 5 MG TABLET PO (09:04)
[2020-06-25] MEDS: HEPARIN SODIUM 5,000 UNITS/ML VIAL 5000 UNITS SUB-Q ×2 (09:04→20:17)
[2020-06-25] MEDS: MAGNESIUM OXIDE 200 MG TABLET PO ×2 (09:04→20:17)
[2020-06-25] MEDS: calcitrioL 0.25 MCG CAPSULE PO (09:04)
[2020-06-25] MEDS: ATORVASTATIN 40 MG TABLET PO (09:05)
[2020-06-25] MEDS: carvediloL 12.5 MG TABLET PO ×2 (09:05→20:17)
[2020-06-25] MEDS: FUROSEMIDE INJ 40 MG/4 ML VIAL IV PUSH ×2 (09:06→16:28)
[2020-06-25] MEDS: SILVERGEL (ELTA) 45 ML 1 APPLIC TOPICAL (09:07)
[2020-06-25 12:07] LABS: Glucose Point of Care 180 (65-105)
[2020-06-25 16:25] LABS: Glucose Point of Care 239 (65-105)
[2020-06-25 18:12] LABS: Anion Gap 1 mmol/L (8-16); Blood Urea Nitrogen 38 mg/dL (7-17); Calcium 8.5 mg/dL (8.4-10.2); Carbon Dioxide 38 mmol/L (22-30); Chloride 97 mmol/L (98-107); Estimated CRCL calculation 31 ml/min; Estimated Glomerular Filt Rate 40; Glucose 257 mg/dL (65-105); Potassium 5.1 mmol/L (3.4-5.0); Sodium 136 mmol/L (137-145)
[2020-06-25 22:08] LABS: Alveolar/Arterial O2 Gradient 107.8 mmHg; Base Excess ABG 9.2 mEq/l (+/-2.0); Fractional Inspired Oxygen 36 %; HCO3 ABG 36.7 mEq/l (22.0-26.0); Oxygen Content ABG 13.4 %vol (16.0-22.0); Oxygen Saturation ABG 92.6 % (95.0-100.0); Oxyhemoglobin 91.9 % THb (90.0-100.0); PO2 ABG 69.9 mmHg (80.0-100.0); PO2 FiO2 Ratio Arterial Blood 1.94 %; Total Hemoglobin 10.3 g/dL (12.0-18.0); pH ABG 7.349 (7.350-7.450)
[2020-06-25 22:09] LABS: Device NASAL CANNULA; Modified Allen's Test Pass; PCO2 ABG 68.1 mmHg (35.0-45.0); Site Drawn RIGHT RADIAL
[2020-06-25 23:15] LABS: Glucose Point of Care 224 (65-105)
[2020-06-26] VITALS (21 sets, daily range): BP systolic 100–121; BP diastolic 52–84; PULSE 68–126; RESP 16–20; TEMP 36.1–36.9; O2SAT 90–96
[2020-06-26] MEDS: ALBUTEROL SULFATE NEB 2.5 MG/0.5 ML INH 5 MG INHALATION ×4 (03:14→21:26)
[2020-06-26] MEDS: IPRATROPIUM BR 0.02% INH SOLN 0.5 MG/2.5 ML VIAL INHALATION ×4 (03:14→21:26)
[2020-06-26 05:44] LABS: Hematocrit 33.3 % (37.0-47.0); Hemoglobin 9.7 g/dL (12.0-15.0); Mean Corpuscular HGB Conc 29.1 g/dl (32-36); Mean Corpuscular Hemoglobin 26.1 pg (26-34); Mean Corpuscular Volume 89.5 fl (80-100); Mean Platelet Volume 9.6 fl (7.4-10.4); Platelet Count Result 279 k/mm3 (150-375); Red Blood Count 3.72 M/mm3 (4.2-5.4); Red Cell Distribution Width 13.9 % (11.5-14.5); White Blood Count 5.5 K/mm3 (4.5-10.0)
[2020-06-26] MEDS: DOCUSATE SODIUM 100 MG CAPSULE PO ×3 (06:03→21:11)
[2020-06-26 06:31] LABS: Alanine Aminotransferase 8 U/L (4-35); Albumin Level 2.9 g/dL (3.5-5.1); Alkaline Phosphatase 100 U/L (38-126); Aspartate Amino Transferase 19 U/L (14-36); Bilirubin,Total 0.3 mg/dL (0.2-1.3); Blood Urea Nitrogen 39 mg/dL (7-17); Carbon Dioxide > 40 mmol/L (22-30); Chloride 95 mmol/L (98-107); Estimated CRCL calculation 34 ml/min; Estimated Glomerular Filt Rate 43; Glucose 123 mg/dL (65-105); Potassium 4.6 mmol/L (3.4-5.0); Sodium 138 mmol/L (137-145)
[2020-06-26 07:45] LABS: Glucose Point of Care 79 (65-105)
--- NOTE | 2020-06-26 08:28 | PM.IMPN ---
Progress Note: A&P Assessment and Plan (1) Paroxysmal A-fib: Code(s): I48.0 - Paroxysmal atrial fibrillation Status: Chronic Assessment and Plan: This is chronic ice on EKG back from 2017. She is not anticoagulated because she has frequent falls. Continue with her current medications she is rate controlled. She was negative for PE and DVT today. (2) Acute exacerbation of CHF (congestive heart failure): Code(s): I50.9 - Heart failure, unspecified Status: Chronic Assessment and Plan: I did obtain an echo. The patient denies fact that she has CHF. Continue with Coreg and she has been started on IV Lasix she has some edema to her lower extremities. Chest x-ray was read as cardiomegaly. (3) Type 1 diabetes mellitus with hyperglycemia: Code(s): E10.65 - Type 1 diabetes mellitus with hyperglycemia Status: Chronic Assessment and Plan: Continue with her long-acting insulin will do sliding scale insulin as well. Patient's blood sugars 48 and she has a history of having hypoglycemia. Patient is been asking for food in the emergency room. (4) Venous stasis: Code(s): I87.8 - Other specified disorders of veins Status: Chronic Assessment and Plan: Patient tells me she has been dealing with this for years. Wound care consult has been placed. (5) Hypothyroidism: Code(s): E03.9 - Hypothyroidism, unspecified Status: Chronic Assessment and Plan: Check thyroid level and continue with her levothyroxine. Patient has had a history of having a partial thyroidectomy in the past. (6) Hyperlipidemia: Code(s): E78.5 - Hyperlipidemia, unspecified Status: Acute Assessment and Plan: Continue with atorvastatin. (7) Acute exacerbation of chronic obstructive pulmonary disease: Code(s): J44.1 - Chronic obstructive pulmonary disease with (acute) exacerbation Status: Chronic Assessment and Plan: Continue with Dulera if formulary. (8) Gait instability: Code(s): R26.81 - Unsteadiness on feet Status: Acute Assessment and Plan: PT and OT evaluation patient has a large hematoma to the back of her head and bruising to her neck. CT of the brain was found to be negative. CT of the neck was negative. Patient states that she just loses her balance. (9) Chronic kidney disease, stage III (moderate): Code(s): N18.3 - Chronic kidney disease, stage 3 (moderate) Status: Acute Assessment and Plan: Patient's GFR is normal today. (10) History of coronary artery stent placement: Code(s): Z95.5 - Presence of coronary angioplasty implant and graft Status: Acute Assessment and Plan: Patient is on Plavix and she is had 2 stents in the past. Additional Plan Plan is to continue current treatment. In light of her having high CO2 and ABG will consult pulmonary also chest x-ray showed increased but pulmonary edema will get help from Cardiology group. Left hand x-ray noted. Patient advised to wear his bandage. Subjective Date/time seen: 06/26/20 08:29 Interval history: Patient was seen during the morning rounds today. Last night events noted, Patient has mild shortness of breath no chest pain. Patient denies any abdominal pain nausea vomiting or diarrhea. More stable. Review of Systems Review of Systems: All systems reviewed & are unremarkable except as noted in HPI and below Constitutional: Constitutional: Reports as per HPI and Reports no additional constitutional complaints Eyes: Eyes: Reports as per HPI and Reports no additional eye complaints ENT: Reports system reviewed and no additional complaints, except as documented and Reports Normal hearing present Cardiovascular: Cardiovascular: Reports no additional cardiovascular complaints Respiratory: Respiratory: Reports no additional respiratory complaints and Reports no additional respiratory complaints Gastrointestinal: Gastr
[2020-06-26 09:09] LABS: NT Pro B Type Natriuretic Pept 4690 PG/ML (5-100); Troponin I 0.014 ng/mL (0.000-0.034)
[2020-06-26] MEDS: POTASSIUM CHLORIDE 20 MEQ PACKET (FOR LIQUID) PO ×2 (09:28→17:13)
[2020-06-26] MEDS: carvediloL 12.5 MG TABLET PO (09:28)
[2020-06-26] MEDS: PANTOPRAZOLE SOD SESQUIHYDRATE 20 MG TAB PO (09:28)
[2020-06-26] MEDS: ATORVASTATIN 40 MG TABLET PO (09:30)
[2020-06-26] MEDS: FUROSEMIDE INJ 40 MG/4 ML VIAL IV PUSH ×2 (09:30→17:13)
[2020-06-26] MEDS: CLOPIDOGREL BISULFATE 75 MG TABLET PO (09:30)
[2020-06-26] MEDS: HEPARIN SODIUM 5,000 UNITS/ML VIAL 5000 UNITS SUB-Q ×2 (09:31→21:10)
[2020-06-26] MEDS: SILVERGEL (ELTA) 45 ML 1 APPLIC TOPICAL (09:33)
[2020-06-26] MEDS: MAGNESIUM OXIDE 200 MG TABLET PO ×2 (09:33→21:11)
[2020-06-26 11:28] LABS: Glucose Point of Care 180 (65-105)
[2020-06-26] MEDS: INSULIN ASPART (*BKC) 100 UNITS/ML SUB-Q ×2 (12:33→17:15)
--- NOTE | 2020-06-26 13:34 | PM.CNCAR ---
Assessment and Plan Assessment and plan (1) Acute exacerbation of CHF (congestive heart failure): Code(s): I50.9 - Heart failure, unspecified Status: Chronic Assessment and Plan: Patient presents with new onset of CHF, probably diastolic as she has no history of left ventricular dysfunction and her EKG does not show any recent MIs. Probably aggravated by her AFib rate which is a bit elevated. Appears to be diuresing well. Blood pressure somewhat soft. Echo pending. Cont IV diuresis. (2) Paroxysmal A-fib: Code(s): I48.0 - Paroxysmal atrial fibrillation Status: Chronic Assessment and Plan: History of PAF, rate mildly elevated. Taking carvedilol but not at the dose recommended by Dr. Herrera which was to increase to 25 mg twice daily last office visit. Will increase the dose to 25 mg b.i.d.. (3) Coronary artery disease involving [place] coronary artery of [place] heart: Code(s): I25.10 - Atherosclerotic heart disease of [place] coronary artery without angina pectoris Status: Acute Assessment and Plan: History of CAD, stable with no angina. Continue statin, BB. (4) Acute exacerbation of chronic obstructive pulmonary disease: Code(s): J44.1 - Chronic obstructive pulmonary disease with (acute) exacerbation Status: Chronic Assessment and Plan: Acute on chronic COPD exacerbation with hypercarbia and respiratory acidosis, treatment per hospitalists History of Present Illness History of Present Illness Consult date/time: 06/26/20 13:34 Reason For Visit: chf exacerbation, copd exacerbation Narrative: Date of service: 06/26/2020 Rina per now all is a 79-year-old white female whom I was asked to see at the request of the hospitalist for my advice and opinion regarding her AFib and CHF in consultation. The patient is followed by Dr. Herrera for her paroxysmal atrial fibrillation. She has not been a candidate for anticoagulation secondary to frequent falls. She has history of CAD, chronic venous insufficiency and implantation of a loop recorder. She was last seen on May 26, still with PAF RVR heart rates in the 140s and Dr. Herrera recommended increasing her carvedilol from 12.5 mg b.i.d. to 25 mg b.i.d.. (she indicates she is still taking the 12.5 mg b.i.d..) The patient had a fall about a week ago, unsteady on her feet. Came to the ER with lower extremity edema and was found to be in CHF. She denied any unusual shortness of breath, PND orthopnea. She does have some chronic MENARD and uses her inhaler at home. No chest pain or pressure, palpitations or dizziness. ProBNP 4600. Chest x-ray consistent with CHF. In AFib, heart rate 90-115 beats per minute. She has been started on IV diuretics and is diuresing well. She remains on oxygen. Review of Systems Constitutional: Constitutional: Reports lethargy Eyes: Eyes: Denies blurry vision ENT: Denies epistaxis Cardiovascular: Cardiovascular: Denies chest pain, Reports pedal edema, Reports leg edema, Denies lightheadedness and Denies palpitations Respiratory: Respiratory: Denies chest congestion, Denies hemoptysis, Denies dyspnea, Reports dyspnea on exertion and Denies wheezing Gastrointestinal: Gastrointestinal: Denies abdominal pain and Denies hematochezia Genitourinary: Genitourinary: Denies hematuria Musculoskeletal: Comments: Head sore from her recent fall, and small hematoma. Integumentary/Breasts: Comments: Lower extremity wounds and some skin tears from her recent fall Neurologic: Denies confusion and Denies headache(s) Psychiatric: Psychiatric: Denies behavioral changes PMFSH Past Medical History Medical History Acute exacerbation of CHF (congestive heart failure) Acute exacerbation of chroni
[2020-06-26 16:44] LABS: Glucose Point of Care 167 (65-105)
[2020-06-26] MEDS: carvediloL 25 MG TABLET PO (21:10)
[2020-06-26] MEDS: INSULIN GLARGINE (*BKC) 100 UNITS/ML 20 UNITS SUB-Q (21:11)
[2020-06-26 21:23] LABS: Glucose Point of Care 127 (65-105)
[2020-06-27] VITALS (21 sets, daily range): BP systolic 100–121; BP diastolic 55–84; PULSE 85–118; RESP 16–22; TEMP 36.6–36.7; O2SAT 92–100
[2020-06-27] MEDS: IPRATROPIUM BR 0.02% INH SOLN 0.5 MG/2.5 ML VIAL INHALATION ×3 (03:41→20:52)
[2020-06-27] MEDS: ALBUTEROL SULFATE NEB 2.5 MG/0.5 ML INH 5 MG INHALATION ×3 (03:41→20:52)
[2020-06-27] MEDS: DOCUSATE SODIUM 100 MG CAPSULE PO ×3 (05:32→20:31)
--- NOTE | 2020-06-27 05:37 | PC.NURSE ---
pt very resistant to wearing bipap. Repeated attempts. Offered to go and give her breaks and put it on after bathroom breaks attempted to avoid going to bathroom. Pt persists that she cannot tolerate wearing the bipap.
[2020-06-27 07:55] LABS: Glucose Point of Care 173 (65-105)
--- NOTE | 2020-06-27 08:03 | PM.IMPN ---
Progress Note: A&P Assessment and Plan (1) Acute exacerbation of CHF (congestive heart failure): Code(s): I50.9 - Heart failure, unspecified Status: Chronic Assessment and Plan: Cardiology consult noted. Will continue with diuretics. Patient is still requiring small amount of oxygen. Will repeat labs in the morning. Will continue current plan of care and treatment. Case discussed with patient in detail patient agreed with current management plan. Patient refuses to go to pen[facility]iary. Subjective Date/time seen: 06/27/20 08:03 Interval history: Patient was seen during the morning rounds today.Patient has mild shortness of breath but better than before. No chest pain. Patient denies any abdominal pain nausea vomiting or diarrhea. More stable. Review of Systems Review of Systems: All systems reviewed & are unremarkable except as noted in HPI and below Constitutional: Constitutional: Reports as per HPI and Reports no additional constitutional complaints Eyes: Eyes: Reports as per HPI and Reports no additional eye complaints ENT: Reports system reviewed and no additional complaints, except as documented and Reports Normal hearing present Cardiovascular: Cardiovascular: Reports no additional cardiovascular complaints Respiratory: Respiratory: Reports no additional respiratory complaints and Reports no additional respiratory complaints Gastrointestinal: Gastrointestinal: Reports as per HPI and Reports no additional gastrointestinal complaints Musculoskeletal: Musculoskeletal: Reports no additional musculoskeletal complaints Integumentary/Breasts: Skin/Breast: Reports system reviewed and no additional complaints, except as docu and Reports as per HPI Neurologic: Reports system reviewed and no additional complaints, except as documented, Reports as per HPI and Reports Normal hearing present Psychiatric: Psychiatric: Reports no additional psychiatric complaints and Reports as per HPI Endocrine: Endocrine: Reports no additional endocrine complaints Hematologic/Lymphatic: Hematologic/Lymphatic: Reports no additional hematologic/lymphatic complaints Allergic/Immunologic: Allergic/Immunologic: Reports no additional allergic/immunologic complaints Exam Const: General: cooperative, healthy appearing, comfortable, no acute distress, well developed, alert, awake and Physically active Nutritional Appearance: average body habitus and thin Orientation/consciousness: oriented to person, oriented to place, oriented to time and patient oriented x3 Limitations: no limitations HENMT: Head: normal to inspection, No palpable skull fracture present, normocephalic and other (Hematoma left parietal area purple bruise to left side of her neck.) Ears: hearing grossly normal bilaterally and external ears normal General nose exam: Normal external nose present, Normal nares present and No nasal polyps present Face and sinus: normal facial exam Mouth: Yes Normal oral and palatal mucosa present Eyes: General: appearance normal, both eyes and all related structures Alignment and Position: alignment normal Periorbital: periorbital findings normal Eyelids: eyelids normal Conjunctivae: conjunctivae normal Sclera: sclerae normal Cornea: corneas normal Pupils: Equal, round and reactive pupils present and Pupil accommodation reflex normal EOM: EOMs intact bilaterally Neck: Neck: normal visual inspection, full ROM, no lymphadenopathy, trachea midline and supple Thyroid: thyroid normal Carotids: normal carotid upstroke Lymphatic: no lymphadenopathy noted Chest: Chest palpation & inspection: normal inspection of the chest and normal palpation of entire chest wall Resp: Effort & Inspection: normal respiratory effort Auscultation: clear to auscultation bilaterally Percussion: percussion normal Cardio: Jugular venous distension: no JVD Palpation: normal PMI Rate: regular rate and tachycardic Rhythm: abnormal rhythm Heart sounds: S1 n
[2020-06-27] MEDS: FUROSEMIDE INJ 40 MG/4 ML VIAL IV PUSH ×2 (08:22→16:16)
[2020-06-27] MEDS: POTASSIUM CHLORIDE 20 MEQ PACKET (FOR LIQUID) PO ×2 (08:22→16:16)
[2020-06-27] MEDS: ATORVASTATIN 40 MG TABLET PO (08:22)
[2020-06-27] MEDS: HEPARIN SODIUM 5,000 UNITS/ML VIAL 5000 UNITS SUB-Q ×2 (08:22→20:31)
[2020-06-27] MEDS: PANTOPRAZOLE SOD SESQUIHYDRATE 20 MG TAB PO (08:22)
[2020-06-27] MEDS: CLOPIDOGREL BISULFATE 75 MG TABLET PO (08:23)
[2020-06-27] MEDS: carvediloL 25 MG TABLET PO ×2 (08:23→20:31)
[2020-06-27] MEDS: MAGNESIUM OXIDE 200 MG TABLET PO ×2 (08:25→20:31)
[2020-06-27] MEDS: SILVERGEL (ELTA) 45 ML 1 APPLIC TOPICAL (08:26)
[2020-06-27] MEDS: INSULIN ASPART (*BKC) 100 UNITS/ML SUB-Q ×3 (08:29→16:28)
[2020-06-27] MEDS: INSULIN GLARGINE (*BKC) 100 UNITS/ML 20 UNITS SUB-Q ×2 (08:29→20:32)
[2020-06-27 11:47] LABS: Glucose Point of Care 120 (65-105)
--- NOTE | 2020-06-27 11:54 | PCRCNOTE ---
Window of time for administration has passed. See next scheduled administration.
--- NOTE | 2020-06-27 13:27 | PM.PNCARD ---
Progress Note: A&P Assessment and Plan (1) Acute exacerbation of CHF (congestive heart failure): Code(s): I50.9 - Heart failure, unspecified Status: Chronic Assessment and Plan: Patient presents with new onset of CHF, probably diastolic as she has no history of left ventricular dysfunction and her EKG does not show any recent MIs. Probably aggravated by her AFib rate which is a bit elevated. Appears to be diuresing well. Blood pressure somewhat soft. Echo pending. Cont IV diuresis. NO BMP today; will order daily BMP. (2) Paroxysmal A-fib: Code(s): I48.0 - Paroxysmal atrial fibrillation Status: Chronic Assessment and Plan: History of PAF, rate mildly elevated. Taking carvedilol but not at the dose recommended by Dr. Herrera which was to increase to 25 mg twice daily last office visit. Increased carvedilol 2:20 a.m. 5 mg b.i.d., on 06/26/2020 Reassess tomorrow, may need increased dose further. Apparently she was resistant to switching to metoprolol as recommended by Dr. Herrera. (3) Coronary artery disease involving [place] coronary artery of [place] heart: Code(s): I25.10 - Atherosclerotic heart disease of [place] coronary artery without angina pectoris Status: Acute Assessment and Plan: History of CAD, stable with no angina. Continue statin, BB. (4) Acute exacerbation of chronic obstructive pulmonary disease: Code(s): J44.1 - Chronic obstructive pulmonary disease with (acute) exacerbation Status: Chronic Assessment and Plan: Acute on chronic COPD exacerbation with hypercarbia and respiratory acidosis, treatment per hospitalists. Having difficulty tolerating BiPAP. Counseled pt re: benefits of BIPAP and encouraged ongoing use. Subjective Date/time seen: 06/27/20 13:27 Interval history: Follow-up for new onset CHF The patient is followed by Dr. Herrera for her paroxysmal atrial fibrillation. No anticoagulation secondary to frequent falls. She has history of CAD, chronic venous insufficiency and implantation of a loop recorder. She was last seen on May 26, still with PAF RVR heart rates in the 140s and Dr. Herrera recommended increasing her carvedilol from 12.5 mg b.i.d. to 25 mg b.i.d.. (she indicates she is still taking the 12.5 mg b.i.d..) The patient had a fall about a week ago, unsteady on her feet. Came to the ER with lower extremity edema and was found to be in CHF. Found to have new onset CHF. In AFib, heart rate 90-115 beats per minute. She has been started on IV diuretics and is diuresing well. She remains on oxygen. Date of service: 06/27/2020: Denies chest pain, ?not much? SOB, edema better. Tends to get mildly hypoxic and BiPAP has been added but she finds it intolerable. Diuresed 1600 cc's yesterday. Telemetry: AFib heart rate 100-112 beats per minute Review of Systems Constitutional: Constitutional: Reports difficulty sleeping Eyes: Eyes: Reports no additional eye complaints ENT: Denies Normal hearing present Cardiovascular: Cardiovascular: Denies chest pain, Reports pedal edema, Denies leg edema, Denies lightheadedness and Denies palpitations Respiratory: Respiratory: Denies cough, Denies dyspnea, Denies dyspnea on exertion and Denies wheezing Gastrointestinal: Gastrointestinal: Denies abdominal pain Integumentary/Breasts: Skin/Breast: Reports wounds (Skin tears wrapped) Neurologic: Reports system reviewed and no additional complaints, except as documented and Denies headache(s) Psychiatric: Psychiatric: Reports no additional psychiatric complaints Exam Narrative: Exam Narrative: Talkative pleasant older lady, seems to have some cognitive dysfunction, brings in a lot of irrelevant details but is trying hard to get control of her situation. Const: General: comfortable
[2020-06-27 16:43] LABS: Glucose Point of Care 109 (65-105)
[2020-06-27 21:23] LABS: Glucose Point of Care 101 (65-105)
[2020-06-27] MEDS: GLUCOSE ORAL GEL 15 GM OF GLUCSE IN 37.5 GM TUBE PO (22:10)
[2020-06-27 23:03] LABS: Glucose Point of Care 59 (65-105)
[2020-06-27 23:03] LABS: Glucose Point of Care 62 (65-105)
[2020-06-27 23:03] LABS: Glucose Point of Care 62 (65-105)
[2020-06-28] VITALS (21 sets, daily range): BP systolic 98–136; BP diastolic 43–71; PULSE 62–118; RESP 18–24; TEMP 36.1–36.5; O2SAT 92–99
[2020-06-28] MEDS: IPRATROPIUM BR 0.02% INH SOLN 0.5 MG/2.5 ML VIAL INHALATION ×4 (02:05→20:09)
[2020-06-28] MEDS: ALBUTEROL SULFATE NEB 2.5 MG/0.5 ML INH 5 MG INHALATION ×4 (02:05→20:08)
[2020-06-28] MEDS: DOCUSATE SODIUM 100 MG CAPSULE PO ×3 (06:11→20:51)
[2020-06-28 06:14] LABS: Hematocrit 34.7 % (37.0-47.0); Hemoglobin 10.3 g/dL (12.0-15.0); Mean Corpuscular HGB Conc 29.7 g/dl (32-36); Mean Corpuscular Hemoglobin 25.8 pg (26-34); Mean Corpuscular Volume 86.8 fl (80-100); Mean Platelet Volume 9.5 fl (7.4-10.4); Platelet Count Result 299 k/mm3 (150-375); Red Cell Distribution Width 13.5 % (11.5-14.5); White Blood Count 5.4 K/mm3 (4.5-10.0)
[2020-06-28 06:15] LABS: Alanine Aminotransferase 12 U/L (4-35); Albumin Level 3.1 g/dL (3.5-5.1); Alkaline Phosphatase 99 U/L (38-126); Aspartate Amino Transferase 31 U/L (14-36); Bilirubin,Total 0.4 mg/dL (0.2-1.3); Blood Urea Nitrogen 42 mg/dL (7-17); Carbon Dioxide > 40 mmol/L (22-30); Chloride 87 mmol/L (98-107); Estimated CRCL calculation 34 ml/min; Estimated Glomerular Filt Rate 43; Glucose 106 mg/dL (65-105); Sodium 135 mmol/L (137-145)
[2020-06-28] MEDS: INSULIN ASPART (*BKC) 100 UNITS/ML SUB-Q ×6 (08:04→16:17)
[2020-06-28] MEDS: FUROSEMIDE INJ 40 MG/4 ML VIAL IV PUSH (08:05)
[2020-06-28] MEDS: MAGNESIUM OXIDE 200 MG TABLET PO ×2 (08:05→20:51)
[2020-06-28] MEDS: PANTOPRAZOLE SOD SESQUIHYDRATE 20 MG TAB PO (08:06)
[2020-06-28] MEDS: calcitrioL 0.25 MCG CAPSULE PO (08:06)
[2020-06-28] MEDS: HEPARIN SODIUM 5,000 UNITS/ML VIAL 5000 UNITS SUB-Q ×2 (08:06→20:50)
[2020-06-28] MEDS: POTASSIUM CHLORIDE 20 MEQ PACKET (FOR LIQUID) PO (08:06)
[2020-06-28] MEDS: CLOPIDOGREL BISULFATE 75 MG TABLET PO (08:06)
[2020-06-28] MEDS: ATORVASTATIN 40 MG TABLET PO (08:06)
[2020-06-28] MEDS: THYROID 60 MG TABLET PO (08:06)
[2020-06-28] MEDS: carvediloL 25 MG TABLET PO ×2 (08:07→20:50)
[2020-06-28] MEDS: INSULIN GLARGINE (*BKC) 100 UNITS/ML 20 UNITS SUB-Q ×2 (08:16→20:51)
[2020-06-28 08:17] LABS: Glucose Point of Care 224 (65-105)
--- NOTE | 2020-06-28 08:56 | PM.IMPN ---
Progress Note: A&P Assessment and Plan (1) Acute exacerbation of CHF (congestive heart failure): Code(s): I50.9 - Heart failure, unspecified Status: Chronic Assessment and Plan: Cardiology consult noted. Will continue with diuretics. Patient is still requiring small amount of oxygen. Will repeat labs in the morning. Will continue current plan of care and treatment. Case discussed with patient in detail patient agreed with current management plan. Patient refuses to go to halfway. Additional Plan Plan is to continue current treatment. In light of her having high CO2 and ABG will consult pulmonary also chest x-ray showed increased but pulmonary edema will get help from Cardiology group. Left hand x-ray noted. Patient advised to wear his bandage. Will evaluate for home oxygen use. Will repeat chest x-ray which he and electrolytes and CBC. Subjective Date/time seen: 06/28/20 08:56 Interval history: Patient was seen during the morning rounds today.Patient has mild shortness of breath but better than before. No chest pain. Patient denies any abdominal pain nausea vomiting or diarrhea. More stable. No new complaints. Review of Systems Review of Systems: All systems reviewed & are unremarkable except as noted in HPI and below Constitutional: Constitutional: Reports as per HPI and Reports no additional constitutional complaints Eyes: Eyes: Reports as per HPI and Reports no additional eye complaints ENT: Reports system reviewed and no additional complaints, except as documented and Reports Normal hearing present Cardiovascular: Cardiovascular: Reports no additional cardiovascular complaints Respiratory: Respiratory: Reports no additional respiratory complaints and Reports no additional respiratory complaints Gastrointestinal: Gastrointestinal: Reports as per HPI and Reports no additional gastrointestinal complaints Musculoskeletal: Musculoskeletal: Reports no additional musculoskeletal complaints Integumentary/Breasts: Skin/Breast: Reports system reviewed and no additional complaints, except as docu and Reports as per HPI Neurologic: Reports system reviewed and no additional complaints, except as documented, Reports as per HPI and Reports Normal hearing present Psychiatric: Psychiatric: Reports no additional psychiatric complaints and Reports as per HPI Endocrine: Endocrine: Reports no additional endocrine complaints Hematologic/Lymphatic: Hematologic/Lymphatic: Reports no additional hematologic/lymphatic complaints Allergic/Immunologic: Allergic/Immunologic: Reports no additional allergic/immunologic complaints Exam Const: General: cooperative, healthy appearing, comfortable, no acute distress, well developed, alert, awake and Physically active Nutritional Appearance: average body habitus and thin Orientation/consciousness: oriented to person, oriented to place, oriented to time and patient oriented x3 Limitations: no limitations HENMT: Head: normal to inspection, No palpable skull fracture present, normocephalic and other (Hematoma left parietal area purple bruise to left side of her neck.) Ears: hearing grossly normal bilaterally and external ears normal General nose exam: Normal external nose present, Normal nares present and No nasal polyps present Face and sinus: normal facial exam Mouth: Yes Normal oral and palatal mucosa present Eyes: General: appearance normal, both eyes and all related structures Alignment and Position: alignment normal Periorbital: periorbital findings normal Eyelids: eyelids normal Conjunctivae: conjunctivae normal Sclera: sclerae normal Cornea: corneas normal Pupils: Equal, round and reactive pupils present and Pupil accommodation reflex normal EOM: EOMs intact bilaterally Neck: Neck: normal visual inspection, full ROM, no lymphadenopathy, trachea midline and supple Thyroid: thyroid normal Carotids: normal carotid upstroke Lymphatic: no lymphadenopathy noted Ches
--- NOTE | 2020-06-28 10:00 | PC.NURSE ---
Notified PFT of home o2 evaluation. Potential discharge for tomorrow, 06/29/[address] Stearns.
[2020-06-28] MEDS: SILVERGEL (ELTA) 45 ML 1 APPLIC TOPICAL (11:20)
[2020-06-28 12:11] LABS: Glucose Point of Care 238 (65-105)
--- NOTE | 2020-06-28 12:14 | PM.PNCARD ---
Progress Note: A&P Assessment and Plan (1) Acute exacerbation of CHF (congestive heart failure): Code(s): I50.9 - Heart failure, unspecified Status: Chronic Assessment and Plan: Presented with new onset of CHF, probably diastolic as she has no history of left ventricular dysfunction and her EKG does not show any recent MIs. Probably aggravated by her AFib rate which is a bit elevated. Diuresed well. Blood pressure somewhat soft. Echo 06/24/2020:Left ventricular systolic function is normal, estimated at 65-70%. There is mildly increased left ventricular wall thickness. The left ventricular diastolic function is indeterminate. Right atrial chamber dimension is moderate to severely enlarged. Left atrial chamber dimension is moderately enlarged. There is mild mitral valve regurgitation. There is moderate to severe tricuspid valve regurgitation. Mild pulmonary hypertension, estimated pulmonary arterial systolic pressure is 42 mmHg. Dilated inferior vena cava with <50% collapse upon inspiration consistent with elevated right atrial pressure, 10 mmHg. Transition to P.O. diuretics. Potassium 5.0 today. Stop potassium supplement Monitor BMP and magnesium. (2) Paroxysmal A-fib: Code(s): I48.0 - Paroxysmal atrial fibrillation Status: Chronic Assessment and Plan: History of PAF, rate mildly elevated. Taking carvedilol but not at the dose recommended by Dr. Herrera which was to increase to 25 mg twice daily last office visit. Converted to sinus rhythm at rate of 60 06/28/2020 at 10:09. Continue carvedilol at 25 mg q 12 hours No anticoagulation due to falls (3) Coronary artery disease involving [place] coronary artery of [place] heart: Code(s): I25.10 - Atherosclerotic heart disease of [place] coronary artery without angina pectoris Status: Acute Assessment and Plan: History of CAD, stable with no angina. Continue statin, BB. (4) Acute exacerbation of chronic obstructive pulmonary disease: Code(s): J44.1 - Chronic obstructive pulmonary disease with (acute) exacerbation Status: Chronic Assessment and Plan: Acute on chronic COPD exacerbation with hypercarbia and respiratory acidosis, treatment per hospitalists. Having difficulty tolerating BiPAP. She is receiving the same meds she has at home with respiratory treatments. Subjective Date/time seen: 06/28/20 12:14 Interval history: Follow-up for:new onset CHF She is followed by Dr. Herrera for her paroxysmal atrial fibrillation. No anticoagulation secondary to frequent falls. She has history of CAD, chronic venous insufficiency and implantation of a loop recorder. She was last seen on May 26, still with PAF RVR heart rates in the 140s and Dr. Herrera recommended increasing her carvedilol from 12.5 mg b.i.d. to 25 mg b.i.d.. (she indicates she is still taking the 12.5 mg b.i.d..) She had a fall about a week ago, unsteady on her feet. Came to the ER with lower extremity edema and was found to be in CHF. Found to have new onset CHF. In AFib, heart rate 90-115 beats per minute. She has been started on IV diuretics and is diuresing well. She remains on oxygen. 06/27/2020: Denies chest pain, ?not much? SOB, edema better. Tends to get mildly hypoxic and BiPAP has been added but she finds it intolerable. Diuresed 1600 cc's yesterday. Telemetry: AFib heart rate 100-112 beats per minute Date of service: 06/28/2020. No chest discomfort. Can't breath and respiratory treatments don't do any good . Concerned about blood sugar on continuous monitor. Lunch was all wrong. Review of Systems Constitutional: Constitutional: Denies headache(s) and Reports lethargy Eyes: Eyes: Denies blurry vision ENT: Denies Normal hearing present, Denies headache(s) and Denies epistaxis Ca
[2020-06-28 16:37] LABS: Glucose Point of Care 306 (65-105)
[2020-06-28 21:20] LABS: Glucose Point of Care 157 (65-105)
[2020-06-29] VITALS (25 sets, daily range): BP systolic 101–127; BP diastolic 41–63; PULSE 53–94; RESP 16–31; TEMP 35.9–37.1; O2SAT 63–96
[2020-06-29] MEDS: ALBUTEROL SULFATE NEB 2.5 MG/0.5 ML INH 5 MG INHALATION ×4 (02:31→21:16)
[2020-06-29] MEDS: IPRATROPIUM BR 0.02% INH SOLN 0.5 MG/2.5 ML VIAL INHALATION ×4 (02:31→21:16)
[2020-06-29 05:35] LABS: Hematocrit 31.8 % (37.0-47.0); Hemoglobin 9.4 g/dL (12.0-15.0); Mean Corpuscular HGB Conc 29.6 g/dl (32-36); Mean Corpuscular Hemoglobin 26.4 pg (26-34); Mean Corpuscular Volume 89.3 fl (80-100); Mean Platelet Volume 9.6 fl (7.4-10.4); Platelet Count Result 256 k/mm3 (150-375); Red Blood Count 3.56 M/mm3 (4.2-5.4); Red Cell Distribution Width 13.3 % (11.5-14.5); White Blood Count 4.7 K/mm3 (4.5-10.0)
[2020-06-29 05:49] LABS: Blood Urea Nitrogen 47 mg/dL (7-17); Carbon Dioxide > 40 mmol/L (22-30); Chloride 90 mmol/L (98-107); Estimated CRCL calculation 40 ml/min; Estimated Glomerular Filt Rate 54; Glucose 148 mg/dL (65-105); Magnesium 1.5 mg/dL (1.6-2.3); Potassium 5.4 mmol/L (3.4-5.0); Sodium 133 mmol/L (137-145)
[2020-06-29] MEDS: DOCUSATE SODIUM 100 MG CAPSULE PO ×3 (06:16→21:00)
[2020-06-29 07:16] LABS: Alveolar/Arterial O2 Gradient 46.6 mmHg; Base Excess ABG 13.6 mEq/l (+/-2.0); Fractional Inspired Oxygen 28 %; HCO3 ABG 41.1 mEq/l (22.0-26.0); Oxygen Content ABG 14.6 %vol (16.0-22.0); Oxygen Saturation ABG 93.5 % (95.0-100.0); Oxyhemoglobin 92.1 % THb (90.0-100.0); PO2 FiO2 Ratio Arterial Blood 2.54 %; Total Hemoglobin 11.2 g/dL (12.0-18.0)
[2020-06-29 07:18] LABS: Device NASAL CANNULA; Modified Allen's Test Pass; PCO2 ABG 69.5 mmHg (35.0-45.0); Site Drawn RIGHT RADIAL
[2020-06-29] MEDS: SILVERGEL (ELTA) 45 ML 1 APPLIC TOPICAL (08:49)
[2020-06-29] MEDS: HEPARIN SODIUM 5,000 UNITS/ML VIAL 5000 UNITS SUB-Q ×2 (08:49→20:58)
[2020-06-29] MEDS: CLOPIDOGREL BISULFATE 75 MG TABLET PO (08:50)
[2020-06-29] MEDS: carvediloL 25 MG TABLET PO ×2 (08:50→20:58)
[2020-06-29] MEDS: ATORVASTATIN 40 MG TABLET PO (08:50)
[2020-06-29] MEDS: PANTOPRAZOLE SOD SESQUIHYDRATE 20 MG TAB PO (08:51)
[2020-06-29] MEDS: FUROSEMIDE 40 MG TABLET PO (08:51)
[2020-06-29] MEDS: MAGNESIUM OXIDE 200 MG TABLET PO ×2 (08:51→20:58)
--- NOTE | 2020-06-29 09:04 | HOMEO2EVAL ---
Home Oxygen Evaluation RC: Home Oxygen (O2) Evaluation Start: 06/28/20 07:30 Freq: ONCE Status: Active Protocol: RPE Activity Type Activity Date Activity User E-Sign Co-Sign Detail Recorded Client Recorded Date Recorded By Document 06/29/20 08:40 KYAW [id number] 06/29/20 09:04 KYAW Document 06/29/20 08:43 KYAW [id number] 06/29/20 09:04 KYAW Document 06/29/20 08:45 KYAW [id number] 06/29/20 09:04 KYAW Document 06/29/20 08:50 KYAW [id number] 06/29/20 09:04 KYAW Document 06/29/20 08:55 KYAW [id number] 06/29/20 09:04 KYAW 06/29/20 06/29/20 06/29/20 08:40 08:43 08:45 Home O2 Evaluation Test Phase Resting Resting Resting Oxygen Delivery Room Air Nasal Cannula Nasal Cannula Oxygen Flow Rate (L/min) 1 2 Pulse Oximetry (90-100 %) 86 L 87 L 90 Home Oxygen Evaluation Comments Treatment Charges O2 Evaluation 06/29/20 06/29/20 08:50 08:55 Home O2 Evaluation Test Phase Exercise Resting Oxygen Delivery Nasal Cannula Nasal Cannula Oxygen Flow Rate (L/min) 2 2 Pulse Oximetry (90-100 %) 93 93 Home Oxygen Evaluation Comments pt requires 2 liters at rest and with exertion. Treatment Charges
--- NOTE | 2020-06-29 09:04 | PCRCNOTE ---
Home o2 eval done, pt requires 2 liters at rest and with activity. will arrange home o2 for discharge. Will bring tank to room for discharge and transport home. RN aware.
[2020-06-29] MEDS: INSULIN GLARGINE (*BKC) 100 UNITS/ML 20 UNITS SUB-Q ×2 (09:07→20:58)
[2020-06-29] MEDS: INSULIN ASPART (*BKC) 100 UNITS/ML SUB-Q ×4 (09:08→16:22)
[2020-06-29 09:15] LABS: Glucose Point of Care 113 (65-105)
--- NOTE | 2020-06-29 11:35 | PM.PNCARD ---
Progress Note: A&P Assessment and Plan (1) Acute exacerbation of CHF (congestive heart failure): Qualifiers: Heart failure type: diastolic Qualified Code(s): I50.33 - Acute on chronic diastolic (congestive) heart failure Code(s): I50.9 - Heart failure, unspecified Status: Chronic Assessment and Plan: Presented with new onset of CHF. Most likely aggravated by her AFib rate which was a bit elevated. Echo 06/24/2020:Left ventricular systolic function is normal, estimated at 65-70%. There is mildly increased left ventricular wall thickness. The left ventricular diastolic function is indeterminate. Right atrial chamber dimension is moderate to severely enlarged. Left atrial chamber dimension is moderately enlarged. There is mild mitral valve regurgitation. There is moderate to severe tricuspid valve regurgitation. Mild pulmonary hypertension, estimated pulmonary arterial systolic pressure is 42 mmHg. Dilated inferior vena cava with <50% collapse upon inspiration consistent with elevated right atrial pressure, 10 mmHg. Transition to P.O. diuretics. Potassium 5.4 06/29/2020 Stopped potassium supplement 06/28/2020 Magnesium 3 GM IVPB today for magnesium of 1.5 06/29/2020 Monitor BMP and magnesium. (2) Paroxysmal A-fib: Code(s): I48.0 - Paroxysmal atrial fibrillation Status: Chronic Assessment and Plan: History of PAF, rate mildly elevated. Taking carvedilol but not at the dose recommended by Dr. Herrera which was to increase to 25 mg twice daily last office visit. Converted to sinus rhythm at rate of 60 06/28/2020 at 10:09. Continue carvedilol at 25 mg q 12 hours. Remaining in sinus rhythm No anticoagulation due to falls (3) Coronary artery disease involving [place] coronary artery of [place] heart: Code(s): I25.10 - Atherosclerotic heart disease of [place] coronary artery without angina pectoris Status: Acute Assessment and Plan: History of CAD, stable with no angina. Continue statin, BB. (4) Acute exacerbation of chronic obstructive pulmonary disease: Code(s): J44.1 - Chronic obstructive pulmonary disease with (acute) exacerbation Status: Chronic Assessment and Plan: Acute on chronic COPD exacerbation with hypercarbia and respiratory acidosis, treatment per hospitalists. Having difficulty tolerating BiPAP. She is receiving the same meds she has at home with respiratory treatments. Additional Plan Plan discussed with Dr Pereira [id number] 06/29/2020 Subjective Date/time seen: 06/29/20 11:35 Interval history: Follow-up for: new onset CHF, PAF Date of service: 06/29/2020 Subjective: Can't breath on BiPAP. Uncomfortable and not sure it is doing its job. No chest discomfort. Does not feel better even though lungs sound better than yesterday and CXR slightly improved. Review of Systems Constitutional: Constitutional: Denies headache(s) and Reports lethargy Eyes: Eyes: Denies blurry vision ENT: Denies Normal hearing present, Denies headache(s) and Denies epistaxis Cardiovascular: Cardiovascular: Denies chest pain, Reports leg edema (resolved), Denies lightheadedness, Denies palpitations, Denies dyspnea and Reports dyspnea on exertion Respiratory: Respiratory: Denies chest congestion, Denies cough, Reports hemoptysis, Reports dyspnea, Reports dyspnea on exertion and Reports wheezing Comments: Uncomfortable on BiPAP Gastrointestinal: Gastrointestinal: Denies abdominal pain and Denies hematochezia Genitourinary: Genitourinary: Denies hematuria Integumentary/Breasts: Skin/Breast: Reports wounds (Skin tears wrapped) Neurologic: Denies Normal hearing present, Denies behavioral changes, Reports confusion (Probably does have some cognitive impairment) and Denies headache(s) Psychiatric:
[2020-06-29] MEDS: MAGNESIUM SULFATE 3GM/D5W100ML 3 GM/100 ML BAG IVPB (11:58)
[2020-06-29 12:19] LABS: Glucose Point of Care 198 (65-105)
--- NOTE | 2020-06-29 13:31 | PM.IMPN ---
Progress Note: A&P Assessment and Plan (1) Acute exacerbation of CHF (congestive heart failure): Qualifiers: Heart failure type: diastolic Qualified Code(s): I50.33 - Acute on chronic diastolic (congestive) heart failure Code(s): I50.9 - Heart failure, unspecified Status: Chronic Assessment and Plan: Cardiology consult noted. Will continue with diuretics. ABG and CXR reviwed. Pt seen by cardiology (2) Acute hypercapnic respiratory failure: Code(s): J96.02 - Acute respiratory failure with hypercapnia Status: Acute Assessment and Plan: Pt is on BIPAP rpt ABG in a few hours time Subjective Date/time seen: 06/29/20 13:31 Interval history: Patient feels sob but is not tolerating BiPAP. ABG shows hypercapnia. CXR shows Small bilateral pleural effusions with bibasilar atelectasis and/or pneumonia. Review of Systems Review of Systems: All systems reviewed & are unremarkable except as noted in HPI and below Exam Const: General: healthy appearing and awake Resp: Effort & Inspection: normal respiratory effort Auscultation: breath sounds absent and diminished lung sounds Percussion: percussion normal Cardio: Jugular venous distension: no JVD Palpation: normal PMI Rate: regular rate and tachycardic Rhythm: abnormal rhythm Heart sounds: S1 normal heart sound present and S2 normal heart sound present Peripheral pulses: Peripheral pulses 2+ throughout GI: Inspection: normal to inspection Auscultation: normal bowel sounds Skin: General skin exam: normal color Lesions: no lesions Rashes: no rashes Trauma: no lacerations or abrasions Wounds: no wounds Hair: normal Nails: normal Neuro: General: oriented to person, oriented to place, oriented to time and patient oriented x3 Cranial nerves: Yes CN's II-XII intact bilaterally, Yes Equal, round and reactive pupils present and Yes Normal hearing present Cognition (Neuro): normal cognition Speech: normal speech Gait exam (Neuro): Normal gait present Motor exam (neuro): 5/5 motor strength present throughout Sensory Exam: normal sensation Extrem: General: normal to inspection Right upper extremity: normal to inspection Left upper extremity: normal to inspection Right lower extremity: lower leg Details: pitting edema Details: 2+ and laceration Left lower extremity: lower leg (Venous stasis ulcer with serous drainage near the left ankle.) Details: localized swelling Psych: Appearance: grossly normal Mental Status: mental status grossly normal Speech and movement: Normal speech and movement present Affect: normal affect and Anxious affect present Attitude: cooperative Thought process: Normal thought process present Objective Data Vital Signs Vital Signs: Vital Signs - 24 hr 06/28/20 14:00 06/28/20 14:30 06/28/20 14:34 Temperature 36.1 C L Pulse Rate 70 110 H 108 H Respiratory Rate 18 20 20 Blood Pressure 110/51 L Pulse Oximetry 93 06/28/20 16:00 06/28/20 18:00 06/28/20 20:00 Temperature 36.3 C L 36.2 C L Pulse Rate 64 70 69 Respiratory Rate 18 24 H Blood Pressure 115/43 L 136/71 Pulse Oximetry 95 97 06/28/20 20:09 06/28/20 20:12 06/28/20 20:28 Temperature Pulse Rate 66 66 69 Respiratory Rate 20 20 Blood Pressure Pulse Oximetry 95 06/28/20 20:50 06/29/20 00:00 06/29/20 02:32 Temperature 36.2 C L Pulse Rate 64 94 89 Respiratory Rate 18 20 Blood Pressure 125/55 L Pulse Oximetry 63 L 06/29/20 02:43 06/29/20 04:00 06/29/20 07:18 Temperature 36.6 C Pulse Rate 88 93 59 L Respiratory Rate 20 20 20 Blood Pressure 127/63 Pulse Oximetry 95 93 06/29/20 07:23 06/29/20 08:00 06/29/20 08:40 Temperature Pulse Rate 53 L 60 Respiratory Rate 16 Blood Pressure Pulse Oximetry 86 L 06/29/20 08:43 06/29/20 08:45 06/29/20 08:50 Temperature Pulse Rate 61 Respiratory Rate Blood Pressure Pulse Oximetry 87 L 90 93 06/29/20 08:55 06/29/20
[2020-06-29 14:53] LABS: Alveolar/Arterial O2 Gradient 60.1 mmHg; Base Excess ABG 7.1 mEq/l (+/-2.0); Fractional Inspired Oxygen 28 %; HCO3 ABG 33.7 mEq/l (22.0-26.0); Oxygen Content ABG 14.3 %vol (16.0-22.0); Oxygen Saturation ABG 93.5 % (95.0-100.0); Oxyhemoglobin 91.9 % THb (90.0-100.0); PCO2 ABG 58.3 mmHg (35.0-45.0); PO2 ABG 70.7 mmHg (80.0-100.0); PO2 FiO2 Ratio Arterial Blood 2.52 %
[2020-06-29 14:54] LABS: Device NASAL CANNULA; Site Drawn LEFT BRACHIAL
[2020-06-29 16:59] LABS: Glucose Point of Care 251 (65-105)
[2020-06-29 20:26] LABS: Glucose Point of Care 240 (65-105)
[2020-06-30] VITALS (23 sets, daily range): BP systolic 104–115; BP diastolic 42–54; PULSE 57–130; RESP 18–23; TEMP 36–36.6; O2SAT 93–100
[2020-06-30] MEDS: ALBUTEROL SULFATE NEB 2.5 MG/0.5 ML INH 5 MG INHALATION ×4 (02:32→20:06)
[2020-06-30] MEDS: IPRATROPIUM BR 0.02% INH SOLN 0.5 MG/2.5 ML VIAL INHALATION ×4 (02:32→20:07)
[2020-06-30 04:32] LABS: Glucose Point of Care 76 (65-105)
[2020-06-30] MEDS: DOCUSATE SODIUM 100 MG CAPSULE PO ×3 (05:57→21:23)
[2020-06-30 07:47] LABS: Glucose Point of Care 161 (65-105)
[2020-06-30] MEDS: THYROID 60 MG TABLET PO (08:20)
[2020-06-30] MEDS: PANTOPRAZOLE SOD SESQUIHYDRATE 20 MG TAB PO (08:21)
[2020-06-30] MEDS: CLOPIDOGREL BISULFATE 75 MG TABLET PO (08:21)
[2020-06-30] MEDS: ATORVASTATIN 40 MG TABLET PO (08:21)
[2020-06-30] MEDS: carvediloL 25 MG TABLET PO ×2 (08:21→21:12)
[2020-06-30] MEDS: FUROSEMIDE 40 MG TABLET PO (08:21)
[2020-06-30] MEDS: MAGNESIUM OXIDE 200 MG TABLET PO ×2 (08:21→21:13)
[2020-06-30] MEDS: calcitrioL 0.25 MCG CAPSULE PO (08:21)
[2020-06-30] MEDS: HEPARIN SODIUM 5,000 UNITS/ML VIAL 5000 UNITS SUB-Q ×2 (08:24→21:13)
[2020-06-30] MEDS: INSULIN ASPART (*BKC) 100 UNITS/ML SUB-Q ×5 (08:27→17:36)
[2020-06-30] MEDS: INSULIN GLARGINE (*BKC) 100 UNITS/ML 20 UNITS SUB-Q ×2 (08:28→21:11)
[2020-06-30 11:39] LABS: Glucose Point of Care 319 (65-105)
[2020-06-30] MEDS: SILVERGEL (ELTA) 45 ML 1 APPLIC TOPICAL (11:49)
--- NOTE | 2020-06-30 11:55 | PM.PNCARD ---
Progress Note: A&P Additional Plan 79-year-old lady with: Paroxysmal atrial fibrillation, currently maintaining sinus rhythm and being treated with carvedilol. Patient is not anticoagulated because of frequent falling Significant underlying COPD/asthma No adjustment of medications today as she is stable. Edward Menchaca MD [facility] Subjective Date/time seen: Date of service: 06/30/20 11:55 Interval history: Follow-up visit in this 79-year-old lady with significant COPD, respiratory difficulties and paroxysmal atrial fibrillation. She may also have a component of diastolic heart failure based on echocardiographic findings. Patient is eating lunch at this time offers no cardiovascular complaints. Telemetry continues to show maintaining normal sinus rhythm. Exam Const: General: comfortable and no acute distress HENMT: Mouth: Yes moist mucous membranes Eyes: Sclera: sclerae normal Pupils: Equal, round and reactive pupils present Neck: Neck: supple and no JVD Lymphatic: lymphadenopathy Resp: Effort & Inspection: normal respiratory effort Other: Breath sounds diminished in both lung [place]abel but otherwise clear no rales no rhonchi no wheezing Cardio: Rate: regular rate Rhythm: regular rhythm GI: GI Palp: Yes Soft to palpation Auscultation: normal bowel sounds Skin: General skin exam: normal color Neuro: Cognition (Neuro): normal cognition Extrem: General: normal to inspection Objective Data Vital Signs Vital Signs: Vital Signs - 24 hr 06/29/20 12:00 06/29/20 14:00 06/29/20 14:44 Temperature 36.2 C L Pulse Rate 60 63 60 Respiratory Rate 18 18 Blood Pressure 110/51 L Pulse Oximetry 90 93 06/29/20 14:58 06/29/20 18:00 06/29/20 20:00 Temperature 36.7 C 37.1 C Pulse Rate 67 56 L 74 Respiratory Rate 18 18 24 H Blood Pressure 117/47 L 125/41 L Pulse Oximetry 95 96 06/29/20 20:58 06/29/20 21:19 06/29/20 21:24 Temperature Pulse Rate 74 67 78 Respiratory Rate 22 H 22 H Blood Pressure Pulse Oximetry 95 06/29/20 23:07 06/30/20 00:00 06/30/20 02:33 Temperature 36.1 C L Pulse Rate 67 60 60 Respiratory Rate 30 H 22 H 22 H Blood Pressure 113/46 L Pulse Oximetry 91 94 06/30/20 02:40 06/30/20 04:00 06/30/20 04:08 Temperature 36.2 C L Pulse Rate 59 L 62 66 Respiratory Rate 20 22 H Blood Pressure 107/47 L Pulse Oximetry 93 06/30/20 08:00 06/30/20 08:21 06/30/20 08:44 Temperature Pulse Rate 61 70 63 Respiratory Rate 20 Blood Pressure Pulse Oximetry 98 93 06/30/20 08:53 06/30/20 10:00 Temperature 36.4 C Pulse Rate 62 60 Respiratory Rate 20 18 Blood Pressure 108/45 L Pulse Oximetry 95 Intake/Output Intake/Output: Intake & Output 06/27/20 06/28/20 06/29/20 06/30/20 23:59 23:59 23:59 23:59 Intake Total 1400 1090 1300 440 Output Total 1300 2950 2375 1000 Balance 100 -1860 -1075 -560 Meds/Results Medications: Active Medications Generic Name Dose Route Start Last Admin Trade Name Freq PRN Reason Stop Dose Admin Acetaminophen 650 mg 06/23/20 12:40 06/25/20 06:18 Acetaminophen 325 Mg Tablet PO 650 mg Q4H PRN Administration Mild Pain (1-3) Albuterol 5 mg 06/23/20 14:00 06/30/20 08:44 Albuterol Sulfate Neb 2.5 Mg/0.5 Ml Inh INHALATION 5 mg Q6HRT KVNG Administration Albuterol 2 puff 06/23/20 17:58 06/24/20 05:50 Albuterol Sulfate (*Sp) Aerosol 1 Puff INHALATION 2 puff Q4-6H PRN Administration Shortness Of Breath Atorvastatin Calcium 40 mg 06/24/20 09:00 06/30/20 08:21 Atorvastatin 40 Mg Tablet PO 40 mg DAILY KVNG Administration Budesonide/Formoterol Fumarate 2 puff 06/24/20 09:00 06/30/20 08:44 Budesonide/Form 80-4.5 Mcg (*Sp) INHALATION 2 puff DAILY KVNG Administration Calcitriol 0.25 mcg 06/25/20 09:00 06/30/20 08:21 Calcitriol 0.25 Mcg Capsule PO 0.25 mcg [id number] KVNG Administration Carvedilol 25 mg 06/26/20 21:00 06/30/20 08:21 Carvedi
--- NOTE | 2020-06-30 13:11 | PM.IMPN ---
Progress Note: A&P Assessment and Plan (1) Acute exacerbation of CHF (congestive heart failure): Qualifiers: Heart failure type: diastolic Qualified Code(s): I50.33 - Acute on chronic diastolic (congestive) heart failure Code(s): I50.9 - Heart failure, unspecified Status: Chronic Assessment and Plan: Cardiology consult noted. Will continue with diuretics or coreg, HOpegul dc conor after pulmonology review. (2) Acute hypercapnic respiratory failure: Code(s): J96.02 - Acute respiratory failure with hypercapnia Status: Acute Assessment and Plan: Consult pulmology pt already has home oxygen organised, pt is a co2 retainer may need triology as she is not tolerting bipap. HIstory of severe emphyema. (3) Acute hyperkalemia: Code(s): E87.5 - Hyperkalemia Status: Acute Assessment and Plan: Pt to have rpt BMp and Kayexalate if needed Subjective Date/time seen: 06/30/20 13:11 Interval history: Patient feels sob but is not tolerating BiPAP. ABG shows hypercapnia. CXR shows Small bilateral pleural effusions with bibasilar atelectasis and/or pneumonia.Pt is on 3 liters awaiting ABG and consult from pulmonology may be needs trilogy at home for severe COPD not tolerating bipap. Home oxygen has been arranged. Review of Systems Review of Systems: All systems reviewed & are unremarkable except as noted in HPI and below Exam Const: Orientation/consciousness: oriented to person, oriented to place, oriented to time and patient oriented x3 HENMT: Head: other (Hematoma left parietal area purple bruise to left side of her neck.) Resp: Auscultation: breath sounds absent and diminished lung sounds Cardio: Jugular venous distension: no JVD Palpation: normal PMI Rate: regular rate and tachycardic Rhythm: abnormal rhythm Heart sounds: S1 normal heart sound present and S2 normal heart sound present Peripheral pulses: Peripheral pulses 2+ throughout GI: Inspection: normal to inspection Auscultation: normal bowel sounds Skin: General skin exam: normal color Lesions: no lesions Rashes: no rashes Trauma: no lacerations or abrasions Wounds: no wounds Hair: normal Nails: normal Neuro: General: oriented to person, oriented to place, oriented to time and patient oriented x3 Cranial nerves: Yes CN's II-XII intact bilaterally, Yes Equal, round and reactive pupils present and Yes Normal hearing present Cognition (Neuro): normal cognition Speech: normal speech Gait exam (Neuro): Normal gait present Motor exam (neuro): 5/5 motor strength present throughout Sensory Exam: normal sensation Extrem: General: normal to inspection Right upper extremity: normal to inspection Left upper extremity: normal to inspection Right lower extremity: lower leg Details: pitting edema Details: 2+ and laceration Left lower extremity: lower leg (Venous stasis ulcer with serous drainage near the left ankle.) Details: localized swelling Psych: Appearance: grossly normal Mental Status: mental status grossly normal Speech and movement: Normal speech and movement present Affect: normal affect and Anxious affect present Attitude: cooperative Thought process: Normal thought process present Insight: Fair insight present (Psych) Judgement: Fair judgement present (Psych) Objective Data Vital Signs Vital Signs: Vital Signs - 24 hr 06/29/20 14:00 06/29/20 14:44 06/29/20 14:58 Temperature 36.2 C L Pulse Rate 63 60 67 Respiratory Rate 18 18 18 Blood Pressure 110/51 L Pulse Oximetry 90 93 06/29/20 18:00 06/29/20 20:00 06/29/20 20:58 Temperature 36.7 C 37.1 C Pulse Rate 56 L 74 74 Respiratory Rate 18 24 H Blood Pressure 117/47 L 125/41 L Pulse Oximetry 95 96 06/29/20 21:19 06/29/20 21:24 06/29/20 23:07 Temperature Pulse Rate 67 78 67 Respiratory Rate 22 H 22 H 30 H Blood Pressure Pulse Oximetry 95 91 06/30/20 00:00 06/30/20 02:33 06/30/20 02:40 Temperature 36.1
[2020-06-30 13:49] LABS: Alveolar/Arterial O2 Gradient 61.2 mmHg; Base Excess ABG 6.8 mEq/l (+/-2.0); Fractional Inspired Oxygen 28 %; HCO3 ABG 33.8 mEq/l (22.0-26.0); Oxygen Content ABG 13.6 %vol (16.0-22.0); Oxygen Saturation ABG 91.6 % (95.0-100.0); Oxyhemoglobin 90.1 % THb (90.0-100.0); PO2 ABG 65.8 mmHg (80.0-100.0); PO2 FiO2 Ratio Arterial Blood 2.35 %; Total Hemoglobin 10.7 g/dL (12.0-18.0); pH ABG 7.357 (7.350-7.450)
[2020-06-30 13:52] LABS: Device NASAL CANNULA; PCO2 ABG 61.6 mmHg (35.0-45.0); Site Drawn LEFT BRACHIAL
--- NOTE | 2020-06-30 14:30 | PC.NURSE ---
Critical ABG's called to Dr. Meidna. Per Dr. Medina, patient needs to wear bipap again. Discussed with patient in length in regards to wearing BiPap at night, or while sleeping d/t critical labs. However, patient is reluctant to listen to any staff education and believes we are giving her false information. Patient states Take me out to the monitor. I want to see my saturation drop when I remove my oxygen. Through much convincing, patient finally agreeable to wear bipap until 4PM. Patient states I'll only wear it until 4pm if you give me ice for my milk. I have to finish my milk first.
[2020-06-30 14:40] LABS: Blood Urea Nitrogen 59 mg/dL (7-17); Calcium 9.3 mg/dL (8.4-10.2); Carbon Dioxide > 40 mmol/L (22-30); Chloride 91 mmol/L (98-107); Estimated CRCL calculation 34 ml/min; Estimated Glomerular Filt Rate 43; Glucose 254 mg/dL (65-105); Potassium 5.9 mmol/L (3.4-5.0); Sodium 134 mmol/L (137-145)
[2020-06-30] MEDS: SODIUM POLYSTYRENE SULFONONATE 15 GM/60 ML BTL PO (15:36)
[2020-06-30 16:16] LABS: Glucose Point of Care 259 (65-105)
[2020-06-30 21:44] LABS: Potassium 5.2 mmol/L (3.4-5.0)
[2020-06-30 21:55] LABS: Glucose Point of Care 233 (65-105)
[2020-07-01] VITALS (19 sets, daily range): BP systolic 90–119; BP diastolic 52–74; PULSE 64–144; RESP 16–26; TEMP 36.1–36.6; O2SAT 92–97
[2020-07-01] MEDS: IPRATROPIUM BR 0.02% INH SOLN 0.5 MG/2.5 ML VIAL INHALATION ×4 (03:03→19:43)
[2020-07-01] MEDS: ALBUTEROL SULFATE NEB 2.5 MG/0.5 ML INH 5 MG INHALATION ×4 (03:03→19:42)
[2020-07-01 05:52] LABS: Hematocrit 36.2 % (37.0-47.0); Hemoglobin 10.7 g/dL (12.0-15.0); Mean Corpuscular HGB Conc 29.6 g/dl (32-36); Mean Corpuscular Volume 87.9 fl (80-100); Platelet Count Result 271 k/mm3 (150-375); Red Blood Count 4.12 M/mm3 (4.2-5.4); Red Cell Distribution Width 13.4 % (11.5-14.5); White Blood Count 5.7 K/mm3 (4.5-10.0)
[2020-07-01 06:07] LABS: Blood Urea Nitrogen 58 mg/dL (7-17); Calcium 9.5 mg/dL (8.4-10.2); Carbon Dioxide > 40 mmol/L (22-30); Chloride 91 mmol/L (98-107); Estimated CRCL calculation 34 ml/min; Estimated Glomerular Filt Rate 43; Glucose 170 mg/dL (65-105); Potassium 5.2 mmol/L (3.4-5.0); Sodium 136 mmol/L (137-145)
[2020-07-01] MEDS: DOCUSATE SODIUM 100 MG CAPSULE PO ×3 (06:24→20:14)
--- NOTE | 2020-07-01 07:42 | PM.CNPUL ---
Assessment and Plan Additional Plan Per other physician here, she is already set up for home O2. To me, her chronic-appearing hypercarbia should qualify her for BiPAP use. Its use is extensively discussed with her. Perhaps her intolerance of it would be lessened by a higher pressure, which I am arranging. Dr. Valdovinos and I will follow. History of Present Illness History of Present Illness Consult date: 07/01/20 Chief complaint: chf exacerbation, copd exacerbation Narrative: 79-year-old lady. Never smoked but had extensive secondhand smoke exposure with many people. Known CHF, intermittent atrial fibrillation, and poor compliancy per staff. Did use BiPAP 3 hours last night overnight ?because she was so tired?. Chronic hypercarbia noted. CMG, large DH, and atelectasis and/or pneumonia on CXR. To me, complains bitterly of discomfort with BiPAP use. Pressure settings have evidently been 10.0/5.0 cm [id number] may benefit from a higher pressure setting. Review of Systems Review of Systems: Narrative: She says she feels no better than when she came into the hospital. Complains of not able to take a deep breath. [facility] Past Medical History Medical History Acute exacerbation of CHF (congestive heart failure) Acute exacerbation of chronic obstructive pulmonary disease GERD (gastroesophageal reflux disease) H/O gastric ulcer Hyperlipidemia Hypothyroidism Paroxysmal A-fib Type 1 diabetes mellitus with hyperglycemia Venous stasis Surgical History Surgical History History of heart artery stent X2 History of loop recorder S/P laparoscopic-assisted sigmoidectomy Status post partial thyroidectomy Family History Family History Mother Family history of diabetes mellitus in first degree relative Other Diabetes mellitus Social History Social History Social History: The patient lives with her significant other for over 30 some years. She has no children. She is retired from being a speech therapist. She is an only child. She states that she does not have any durable power privacy attorney for healthcare. Patient is a full code. The patient denies any alcohol, tobacco, marijuana illicit drugs. Smoking status: Never smoker Second hand tobacco smoke exposure: Yes Alcohol intake: current Drinks per week: 3 Substance use: never Substance use type: does not use Gender identity (if verbalized by the patient): Female Spiritual care concerns: No Meds Home Medications and Allergies Home Medications Medication Instructions Recorded Confirmed Type albuterol sulfate 90 mcg/actuation 2 puff INHALATION Q4-6H PRN gm 07/29/19 06/23/20 History aerosol inhaler atorvastatin 40 mg tablet 40 mg PO DAILY 07/29/19 06/23/20 History calcitriol 0.25 mcg capsule 0.25 mcg PO 3XW 07/29/19 06/23/20 History carvedilol 6.25 mg tablet 12.5 mg PO Q12H 07/29/19 06/23/20 History clopidogrel 75 mg tablet 75 mg PO DAILY 07/29/19 06/23/20 History ergocalciferol (vitamin D2) 1,250 1,250 mcg PO WEEKLY 07/29/19 06/23/20 History mcg (50,000 unit) capsule insulin lispro 100 unit/mL 1 sliding scale dose SUB-Q 07/29/19 06/23/20 History subcutaneous solution USEASDIRECTD mometasone-formoterol HFA 100 2 puff INHALATION DAILY 07/29/19 06/23/20 History mcg-5 mcg/actuation aerosol inhaler pantoprazole 20 mg tablet,delayed 20 mg PO QAM 07/29/19 06/23/20 History release thyroid (pork) 30 mg tablet 30 mg PO .MON-WED-SUN tablet 07/29/19 06/23/20 History insulin glargine 100 unit/mL 15 unit SUB-Q Q12H ml 07/30/19 06/23/20 History subcutaneous solution amlodipine 5 mg tablet 5 mg PO DAILY #90 tablet 03/11/20 06/23/20 Rx docusate sodium [Colace] 100 mg PO TID 06/23/20 06/23/20 History Allergies Allergy/AdvReac Type Severit
[2020-07-01 08:20] LABS: Glucose Point of Care 175 (65-105)
--- NOTE | 2020-07-01 08:58 | PCOTNOTE ---
Attempted to see Patient at this time, Patient was eating breakfast. Patient not available st this time. Will check at a later time.
[2020-07-01] MEDS: FUROSEMIDE 40 MG TABLET PO (09:20)
[2020-07-01] MEDS: carvediloL 25 MG TABLET PO ×2 (09:21→20:14)
[2020-07-01] MEDS: CLOPIDOGREL BISULFATE 75 MG TABLET PO (09:21)
[2020-07-01] MEDS: MAGNESIUM OXIDE 200 MG TABLET PO ×2 (09:23→20:14)
[2020-07-01] MEDS: PANTOPRAZOLE SOD SESQUIHYDRATE 20 MG TAB PO (09:23)
[2020-07-01] MEDS: ATORVASTATIN 40 MG TABLET PO (09:23)
[2020-07-01] MEDS: HEPARIN SODIUM 5,000 UNITS/ML VIAL 5000 UNITS SUB-Q ×2 (09:23→20:14)
[2020-07-01] MEDS: INSULIN ASPART (*BKC) 100 UNITS/ML SUB-Q ×4 (09:28→16:56)
[2020-07-01] MEDS: INSULIN GLARGINE (*BKC) 100 UNITS/ML 20 UNITS SUB-Q (09:35)
[2020-07-01] MEDS: SILVERGEL (ELTA) 45 ML 1 APPLIC TOPICAL (09:42)
--- NOTE | 2020-07-01 10:25 | PM.IMPN ---
Progress Note: A&P Assessment and Plan (1) Acute exacerbation of CHF (congestive heart failure): Qualifiers: Heart failure type: diastolic Qualified Code(s): I50.33 - Acute on chronic diastolic (congestive) heart failure Code(s): I50.9 - Heart failure, unspecified Status: Chronic Assessment and Plan: Cardiology consult noted and signed off. Will continue with diuretics or coreg, Hopeful dc soon after pulmonology review. (2) Acute hypercapnic respiratory failure: Code(s): J96.02 - Acute respiratory failure with hypercapnia Status: Acute Assessment and Plan: Consult pulmology pt already has home oxygen organized, increase BIPAP settings. History of severe emphysema. (3) Acute hyperkalemia: Code(s): E87.5 - Hyperkalemia Status: Acute Assessment and Plan: Pt to have rpt BMp and Kayexalate if needed, potassium still high Subjective Date/time seen: 07/01/20 10:25 Interval history: Patient feels sob. HIstory of CHf and severe COPD due to passive smoking. ABG shows hypercapnia. CXR shows Small bilateral pleural effusions with bibasilar atelectasis and/or pneumonia.Pt is on 3 liters and BIPAP prn. Seen by pulmology [facility] BIPAP settings Review of Systems Review of Systems: All systems reviewed & are unremarkable except as noted in HPI and below Exam Const: General: healthy appearing and awake Nutritional Appearance: average body habitus and thin Orientation/consciousness: oriented to person, oriented to place, oriented to time and patient oriented x3 Limitations: no limitations HENMT: Head: other (Hematoma left parietal area purple bruise to left side of her neck.) Ears: hearing grossly normal bilaterally and external ears normal General nose exam: Normal external nose present, Normal nares present and No nasal polyps present Face and sinus: normal facial exam Mouth: Yes Normal oral and palatal mucosa present Eyes: General: appearance normal, both eyes and all related structures Alignment and Position: alignment normal Periorbital: periorbital findings normal Eyelids: eyelids normal Conjunctivae: conjunctivae normal Sclera: sclerae normal Cornea: corneas normal Pupils: Equal, round and reactive pupils present and Pupil accommodation reflex normal EOM: EOMs intact bilaterally Neck: Neck: normal visual inspection, full ROM, no lymphadenopathy, trachea midline and supple Resp: Effort & Inspection: normal respiratory effort Auscultation: breath sounds absent and diminished lung sounds Percussion: percussion normal Cardio: Jugular venous distension: no JVD Palpation: normal PMI Rate: regular rate and tachycardic Rhythm: abnormal rhythm Heart sounds: S1 normal heart sound present and S2 normal heart sound present Peripheral pulses: Peripheral pulses 2+ throughout GI: Inspection: normal to inspection Auscultation: normal bowel sounds Rectal Exam: deferred Skin: General skin exam: normal color Lesions: no lesions Rashes: no rashes Trauma: no lacerations or abrasions Wounds: no wounds Hair: normal Nails: normal Neuro: General: oriented to person, oriented to place, oriented to time and patient oriented x3 Cranial nerves: Yes CN's II-XII intact bilaterally, Yes Equal, round and reactive pupils present and Yes Normal hearing present Cognition (Neuro): normal cognition Speech: normal speech Gait exam (Neuro): Normal gait present Motor exam (neuro): 5/5 motor strength present throughout Sensory Exam: normal sensation Extrem: General: normal to inspection Right upper extremity: normal to inspection Left upper extremity: normal to inspection Right lower extremity: lower leg Details: pitting edema Details: 2+ and laceration Left lower extremity: lower leg (Venous stasis ulcer with serous drainage near the left ankle.) Details: localized swelling Psych: Appearance: grossly normal Mental Status: mental status grossly normal Speech and movement: N
--- NOTE | 2020-07-01 11:34 | PM.PNCARD ---
Progress Note: A&P Assessment and Plan (1) Acute exacerbation of CHF (congestive heart failure): Qualifiers: Heart failure type: diastolic Qualified Code(s): I50.33 - Acute on chronic diastolic (congestive) heart failure Code(s): I50.9 - Heart failure, unspecified Status: Chronic Assessment and Plan: Presented with new onset of CHF. Most likely aggravated by her AFib rate which was a bit elevated. Echo 06/24/2020:Left ventricular systolic function is normal, estimated at 65-70%. There is mildly increased left ventricular wall thickness. The left ventricular diastolic function is indeterminate. Right atrial chamber dimension is moderate to severely enlarged. Left atrial chamber dimension is moderately enlarged. There is mild mitral valve regurgitation. There is moderate to severe tricuspid valve regurgitation. Mild pulmonary hypertension, estimated pulmonary arterial systolic pressure is 42 mmHg. Dilated inferior vena cava with <50% collapse upon inspiration consistent with elevated right atrial pressure, 10 mmHg. Continue furosemide 40 mg daily Monitor BMP and Mag outpatient Continue carvedilol at 25 mg every 12 hours. (2) Paroxysmal A-fib: Code(s): I48.0 - Paroxysmal atrial fibrillation Status: Chronic Assessment and Plan: History of PAF, rate mildly elevated. Converted to sinus rhythm at rate of 60 06/28/2020 at 10:09. Continue carvedilol at 25 mg q 12 hours. Remaining in sinus rhythm No anticoagulation due to falls (3) Coronary artery disease involving belkofski coronary artery of belkofski heart: Code(s): I25.10 - Atherosclerotic heart disease of belkofski coronary artery without angina pectoris Status: Acute Assessment and Plan: History of CAD, stable with no angina. Continue statin, BB. (4) Acute exacerbation of chronic obstructive pulmonary disease: Code(s): J44.1 - Chronic obstructive pulmonary disease with (acute) exacerbation Status: Chronic Assessment and Plan: Acute on chronic COPD exacerbation with hypercarbia and respiratory acidosis, treatment per hospitalists. She has been fighting the BiPAP for 3 nights. Does not want to use it. She is receiving the same meds she has at home with respiratory treatments. Additional Plan OK to discharge from cardiac standpoint. See discharge instructions for follow-up. Plan discussed with Dr Lorene Garza 07/01/2020 Subjective Date/time seen: 07/01/20 11:34 Interval history: Follow-up for: new onset CHF, PAF Date of service: 07/01/2020 Subjective: Tired. Has not slept for 3 nights as she has been fighting the BiPAP. Does not want it. No appreciable discomforts. Short of breath with any activity. Review of Systems Constitutional: Constitutional: Reports fatigue and Denies headache(s) Eyes: Eyes: Denies blurry vision ENT: Denies Normal hearing present, Denies headache(s) and Denies epistaxis Cardiovascular: Cardiovascular: Denies chest pain, Reports leg edema (resolved), Denies lightheadedness, Denies palpitations, Reports dyspnea and Reports dyspnea on exertion Respiratory: Respiratory: Denies chest congestion, Denies cough, Reports hemoptysis, Reports dyspnea, Reports dyspnea on exertion and Reports wheezing Gastrointestinal: Gastrointestinal: Denies abdominal pain and Denies hematochezia Genitourinary: Genitourinary: Denies hematuria Integumentary/Breasts: Skin/Breast: Reports wounds (Skin tears wrapped) Neurologic: Denies Normal hearing present, Denies behavioral changes, Reports confusion (Probably does have some cognitive impairment) and Denies headache(s) Psychiatric: Psychiatric: Denies behavioral changes and Reports confusion (Probably does have some cognitive impairment) Endocrine: Endocrine: Denies palp
[2020-07-01 11:52] LABS: Glucose Point of Care 239 (65-105)
[2020-07-01] MEDS: SODIUM POLYSTYRENE SULFONONATE 15 GM/60 ML BTL PO (11:59)
--- NOTE | 2020-07-01 12:40 | PCDIET ---
Weekly nutritional screen. Patient is tolerating current diet, diabetic, which is appropriate, with adequate intake, 79% average over last five meals. No weight loss reported. Bowels moving appropriately. No nutritional needs at this time.
[2020-07-01 16:51] LABS: Glucose Point of Care 161 (65-105)
[2020-07-01] MEDS: INSULIN GLARGINE (*BKC) 100 UNITS/ML 10 UNITS SUB-Q (20:39)
[2020-07-01 20:41] LABS: Glucose Point of Care 173 (65-105)
[2020-07-02] VITALS (19 sets, daily range): BP systolic 91–129; BP diastolic 49–73; PULSE 72–115; RESP 16–22; TEMP 36.3–37; O2SAT 86–100
[2020-07-02] MEDS: ALBUTEROL SULFATE NEB 2.5 MG/0.5 ML INH 5 MG INHALATION ×3 (02:31→15:13)
[2020-07-02] MEDS: IPRATROPIUM BR 0.02% INH SOLN 0.5 MG/2.5 ML VIAL INHALATION ×3 (02:31→15:14)
[2020-07-02 05:52] LABS: Basophils Absolute Auto 0.1 K/mm3 (0.0-0.1); Basophils Percent Auto 0.9 % (0.2-1.2); Eosinophils Absolute Auto 0.2 K/mm3 (0-0.3); Eosinophils Percent Auto 3.5 % (0-4.4); Hematocrit 40.7 % (37.0-47.0); Hemoglobin 11.9 g/dL (12.0-15.0); Immature Granulocyte Absolute 0.02 K/mm3 (0.00-0.031); Immature Granulocyte Percent A 0.4 % (0-0.5); Immature Platelet Fraction Pct 4.4 % (0.9-11.2); Lymphocytes Percent Auto 24.1 % (18.3-44.2); Mean Corpuscular HGB Conc 29.2 g/dl (32-36); Mean Corpuscular Hemoglobin 25.6 pg (26-34); Mean Corpuscular Volume 87.7 fl (80-100); Mean Platelet Volume 10.4 fl (7.4-10.4); Monocytes Absolute Auto 0.5 K/mm3 (0.1-0.6); Monocytes Percent Auto 9.1 % (2.6-8.5); Neutrophils Absolute Auto 3.4 K/mm3 (1.3-6.7); Platelet Count Result 213 k/mm3 (150-375); Red Blood Count 4.64 M/mm3 (4.2-5.4); Red Cell Distribution Width 13.3 % (11.5-14.5); White Blood Count 5.4 K/mm3 (4.5-10.0)
[2020-07-02] MEDS: DOCUSATE SODIUM 100 MG CAPSULE PO ×2 (06:03→14:39)
[2020-07-02 06:13] LABS: Anion Gap 6 mmol/L (8-16); Blood Urea Nitrogen 67 mg/dL (7-17); Calcium 9.6 mg/dL (8.4-10.2); Carbon Dioxide 36 mmol/L (22-30); Chloride 93 mmol/L (98-107); Estimated CRCL calculation 31 ml/min; Estimated Glomerular Filt Rate 40; Glucose 117 mg/dL (65-105); Magnesium 2.2 mg/dL (1.6-2.3); Potassium 4.9 mmol/L (3.4-5.0); Sodium 135 mmol/L (137-145)
[2020-07-02 07:34] LABS: Hypochromasia 2+ (NORMAL); Platelet Estimate Adequate (Adequate)
[2020-07-02 07:35] LABS: Ovalocytes 2+ (NORMAL)
[2020-07-02] MEDS: carvediloL 25 MG TABLET PO (08:01)
[2020-07-02] MEDS: calcitrioL 0.25 MCG CAPSULE PO (08:01)
[2020-07-02] MEDS: ATORVASTATIN 40 MG TABLET PO (08:01)
[2020-07-02] MEDS: ERGOCALCIFEROL 50,000 UNIT CAPSULE 50000 UNITS PO (08:02)
[2020-07-02] MEDS: THYROID 60 MG TABLET PO (08:02)
[2020-07-02] MEDS: FUROSEMIDE 40 MG TABLET PO (08:02)
[2020-07-02] MEDS: CLOPIDOGREL BISULFATE 75 MG TABLET PO (08:02)
[2020-07-02] MEDS: MAGNESIUM OXIDE 200 MG TABLET PO (08:02)
[2020-07-02] MEDS: PANTOPRAZOLE SOD SESQUIHYDRATE 20 MG TAB PO (08:02)
[2020-07-02] MEDS: HEPARIN SODIUM 5,000 UNITS/ML VIAL 5000 UNITS SUB-Q (08:09)
[2020-07-02 08:22] LABS: Glucose Point of Care 104 (65-105)
[2020-07-02] MEDS: INSULIN ASPART (*BKC) 100 UNITS/ML SUB-Q ×3 (08:41→16:39)
[2020-07-02] MEDS: INSULIN GLARGINE (*BKC) 100 UNITS/ML 20 UNITS SUB-Q (08:41)
[2020-07-02 08:57] LABS: Blood Urea Nitrogen 61 mg/dL (7-17); Calcium 9.3 mg/dL (8.4-10.2); Carbon Dioxide > 40 mmol/L (22-30); Chloride 92 mmol/L (98-107); Estimated CRCL calculation 31 ml/min; Estimated Glomerular Filt Rate 40; Glucose 99 mg/dL (65-105); Potassium 4.6 mmol/L (3.4-5.0); Sodium 135 mmol/L (137-145)
--- NOTE | 2020-07-02 10:01 | PM.PNPUL ---
Progress Note: A&P Additional Plan It appears she will not wear BiPAP. I suspect she needs another home O2 eval prior to dismissal. Time Spent With Patient Time with patient: 15 - 25 minutes Subjective Date/time seen: 07/02/20 10:01 Interval history: Not wearing BiPAP, which staff confirms. Patient tells me she is interested in going home. Wants to see her ?schizophrenic boyfriend?. Exam Narrative: Exam Narrative: Chest clear reduced breath sounds. Heart sounds regular. Objective Data Vital Signs Vital Signs: Vital Signs - 24 hr 07/01/20 12:00 07/01/20 14:00 07/01/20 15:07 Temperature 36.5 C Pulse Rate 89 103 H 76 Respiratory Rate 16 20 Blood Pressure 100/52 L Pulse Oximetry 93 07/01/20 16:00 07/01/20 19:46 07/01/20 19:56 Temperature 36.4 C L Pulse Rate 144 H 92 88 Respiratory Rate 20 20 20 Blood Pressure 117/73 Pulse Oximetry 97 92 07/01/20 20:00 07/01/20 20:14 07/02/20 02:00 Temperature 36.6 C 36.5 C Pulse Rate 102 H 82 107 H Respiratory Rate 20 20 Blood Pressure 119/60 129/73 Pulse Oximetry 92 100 07/02/20 02:32 07/02/20 02:42 07/02/20 05:41 Temperature 36.3 C L Pulse Rate 80 84 112 H Respiratory Rate 20 20 20 Blood Pressure 100/50 L Pulse Oximetry 97 07/02/20 07:59 07/02/20 08:00 07/02/20 08:01 Temperature Pulse Rate 109 H Respiratory Rate Blood Pressure 116/73 Pulse Oximetry 97 07/02/20 09:04 07/02/20 09:29 07/02/20 09:34 Temperature Pulse Rate 106 H 100 Respiratory Rate 22 H 20 Blood Pressure Pulse Oximetry 89 L Intake/Output Intake/Output: Intake & Output 06/29/20 06/30/20 07/01/20 07/02/20 23:59 23:59 23:59 23:59 Intake Total 1300 1220 1400 300 Output Total 2375 2000 950 500 Balance -1075 -780 450 -200 Meds/Results Medications: Active Medications Generic Name Dose Route Start Last Admin Trade Name Freq PRN Reason Stop Dose Admin Acetaminophen 650 mg 06/23/20 12:40 06/25/20 06:18 Acetaminophen 325 Mg Tablet PO 650 mg Q4H PRN Administration Mild Pain (1-3) Albuterol 5 mg 06/23/20 14:00 07/02/20 09:27 Albuterol Sulfate Neb 2.5 Mg/0.5 Ml Inh INHALATION 5 mg Q6HRT KVNG Administration Albuterol 2 puff 06/23/20 17:58 06/24/20 05:50 Albuterol Sulfate (*Sp) Aerosol 1 Puff INHALATION 2 puff Q4-6H PRN Administration Shortness Of Breath Atorvastatin Calcium 40 mg 06/24/20 09:00 07/02/20 08:01 Atorvastatin 40 Mg Tablet PO 40 mg DAILY KVNG Administration Budesonide/Formoterol Fumarate 2 puff 06/24/20 09:00 07/01/20 08:38 Budesonide/Form 80-4.5 Mcg (*Sp) INHALATION 2 puff DAILY KVNG Administration Calcitriol 0.25 mcg 06/25/20 09:00 07/02/20 08:01 Calcitriol 0.25 Mcg Capsule PO 0.25 mcg [id number] KVNG Administration Carvedilol 25 mg 06/26/20 21:00 07/02/20 08:01 Carvedilol 25 Mg Tablet PO 25 mg Q12HR KVNG Administration Clopidogrel Bisulfate 75 mg 06/24/20 09:00 07/02/20 08:02 Clopidogrel Bisulfate 75 Mg Tablet PO 75 mg DAILY KVNG Administration Dextrose 12.5 gm 06/23/20 12:40 06/23/20 14:49 Dextrose 50% 25 Gm/50 Ml Syringe IV PUSH 12.5 gm PRN PRN Administration Hypoglycemia Protocol Docusate Sodium 100 mg 06/23/20 22:00 07/02/20 06:03 Docusate Sodium 100 Mg Capsule PO 100 mg Q8HR KVNG Administration Ergocalciferol 50,000 unit 06/25/20 09:00 07/02/20 08:02 Ergocalciferol 50,000 Unit Capsule PO 50,000 unit Fr@0900 KVNG Administration Furosemide 40 mg 06/29/20 09:00 07/02/20 08:02 Furosemide 40 Mg Tablet PO 40 mg DAILY KVNG Administration Glucagon 1 mg 06/23/20 12:40 Glucagon For Inj 1 Mg Vial IM PRN PRN Hypoglycemia Protocol Glucose 15 gm 06/23/20 12:40 06/27/20 22:10 Glucose Oral Gel 15 Gm Of Glucse In 37.5 Gm Tube PO 15 gm PRN PRN Administration Hypoglycemia Protocol Heparin Sodium (Porcine) 5,000 units 06/24/20 21:00 0
[2020-07-02] MEDS: SILVERGEL (ELTA) 45 ML 1 APPLIC TOPICAL (11:48)
[2020-07-02 12:04] LABS: Alveolar/Arterial O2 Gradient 85.9 mmHg; Base Excess ABG 6.9 mEq/l (+/-2.0); Fractional Inspired Oxygen 28 %; Oxygen Content ABG 13.5 %vol (16.0-22.0); Oxyhemoglobin 82.3 % THb (90.0-100.0); PCO2 ABG 54.7 mmHg (35.0-45.0); PO2 FiO2 Ratio Arterial Blood 1.76 %; Total Hemoglobin 11.7 g/dL (12.0-18.0); pH ABG 7.399 (7.350-7.450)
[2020-07-02 12:10] LABS: PO2 ABG 49.2 mmHg (80.0-100.0)
[2020-07-02 12:11] LABS: Device NASAL CANNULA; Modified Allen's Test Pass; Site Drawn LEFT RADIAL
[2020-07-02 12:47] LABS: Glucose Point of Care 199 (65-105)
--- NOTE | 2020-07-02 13:03 | PM.DS ---
DS: Admitting Diagnosis Admitting Diagnosis Admitting Diagnosis: Swelling in lower extremities DS: Discharge Diagnosis Discharge Diagnosis (1) Acute exacerbation of CHF (congestive heart failure): Qualifiers: Heart failure type: diastolic Qualified Code(s): I50.33 - Acute on chronic diastolic (congestive) heart failure Code(s): I50.9 - Heart failure, unspecified Status: Resolved Assessment and Plan: Pt treated with iv diuresis. Pt is better. Cardiology consult noted and signed off. Will continue with diuretics or coreg as outpatient. (2) Acute hypercapnic respiratory failure: Code(s): J96.02 - Acute respiratory failure with hypercapnia Status: Acute Assessment and Plan: Consult pulmology pt already has home oxygen organized. Pt benefits from BIPAP but is not tolerating it in thehospital. History of severe emphysema. Pt can follow with pulmology DR Valdovinos in her clinic. (3) Acute hyperkalemia: Code(s): E87.5 - Hyperkalemia Status: Resolved Assessment and Plan: Potassium level is nL after kayelexate. DS: Summary Hospital Course Hospital Course: HOSPITAL COURSE: Patient feels sob. HIstory of CHf and severe COPD due to passive smoking. ABG shows hypercapnia. CXR shows Small bilateral pleural effusions with bibasilar atelectasis and/or pneumonia.Pt is on 3 liters and BIPAP prn. Seen by pulmonology. Pt would benefit from BIPAP but is not tolerating it in hospital, ok to DC with home oxygen and follow with Dr Valdovinos. Pt treated with iv diuresis. Pt is better from cardiology point of view can continue on oral diuretics at home. Time Spent with Patient Time attestation: Total time spent providing and/or coordinating discharge services:40 minutes on day of discharge Exam Const: General: healthy appearing and awake Nutritional Appearance: average body habitus and thin Orientation/consciousness: oriented to person, oriented to place, oriented to time and patient oriented x3 Limitations: no limitations HENMT: Head: other (Hematoma left parietal area purple bruise to left side of her neck.) Resp: Auscultation: breath sounds absent and diminished lung sounds Percussion: percussion normal Cardio: Jugular venous distension: no JVD Palpation: normal PMI Rate: regular rate and tachycardic Rhythm: abnormal rhythm Heart sounds: S1 normal heart sound present and S2 normal heart sound present Peripheral pulses: Peripheral pulses 2+ throughout GI: Inspection: normal to inspection Auscultation: normal bowel sounds Neuro: General: oriented to person, oriented to place, oriented to time and patient oriented x3 Cranial nerves: Yes CN's II-XII intact bilaterally, Yes Equal, round and reactive pupils present and Yes Normal hearing present Cognition (Neuro): normal cognition Speech: normal speech Gait exam (Neuro): Normal gait present Motor exam (neuro): 5/5 motor strength present throughout Sensory Exam: normal sensation Extrem: General: normal to inspection Right upper extremity: normal to inspection Left upper extremity: normal to inspection Right lower extremity: lower leg Details: pitting edema Details: 2+ and laceration Left lower extremity: lower leg (Venous stasis ulcer with serous drainage near the left ankle.) Details: localized swelling Psych: Appearance: grossly normal Mental Status: mental status grossly normal Speech and movement: Normal speech and movement present Affect: normal affect and Anxious affect present Attitude: cooperative Thought process: Normal thought process present Insight: Fair insight present (Psych) Judgement: Fair judgement present (Psych) DS: Data Data Completed and Pending Labs on day of discharge: Labs from last 24 hours 07/02/20 07/02/20 07/02/20 11:48 10:58 08:12 WBC RBC Hgb Hct MCV MCH MCHC RDW Plt Count MPV Immature Gran % (Auto) Neut % (Auto) Lymph % (Auto) Camp % (Auto
--- NOTE | 2020-07-02 14:14 | PCRCNOTE ---
Home 02 evaluation done no changes from previous order.
--- NOTE | 2020-07-02 14:17 | HOMEO2EVAL ---
Home Oxygen Evaluation RC: Home Oxygen (O2) Evaluation Start: 06/28/20 07:30 Freq: ONCE Status: Active Protocol: RPE Activity Type Activity Date Activity User E-Sign Co-Sign Detail Recorded Client Recorded Date Recorded By Document 07/02/20 13:30 [email or web address] [email or web address] 07/02/20 14:01 DLW Document 07/02/20 13:33 DLW [email or web address] 07/02/20 14:02 DLW Document 07/02/20 13:35 DLW [email or web address] 07/02/20 14:03 DLW Document 07/02/20 13:40 [email or web address] [email or web address] 07/02/20 14:04 DLW Document 07/02/20 13:45 [email or web address] [email or web address] 07/02/20 14:07 DLW 07/02/20 07/02/20 07/02/20 13:30 13:33 13:35 Home O2 Evaluation Test Phase Resting Resting Resting Oxygen Delivery Room Air Nasal Cannula Nasal Cannula Oxygen Flow Rate (L/min) 1 2 Pulse Oximetry (90-100 %) 86 L 87 L 91 Home Oxygen Evaluation Comments Treatment Charges O2 Evaluation 07/02/20 07/02/20 13:40 13:45 Home O2 Evaluation Test Phase Exercise Exercise Oxygen Delivery Nasal Cannula Nasal Cannula Oxygen Flow Rate (L/min) 2 2 Pulse Oximetry (90-100 %) 94 94 Home Oxygen Evaluation Comments Pt requires 2 liters at rest and with exertion. Treatment Charges
[2020-07-02 14:23] LABS: Glucose Point of Care 259 (65-105)
[2020-07-02] MEDS: BISACODYL 5 MG TABLET EC 10 MG PO (14:39)
[2020-07-02 16:45] LABS: Glucose Point of Care 230 (65-105)
== END 2020-07-02 19:17 | disposition home health service (06) | DRG 291 ==
LOC: ANHED 12:37 → ANH2MED 13:37
PROVIDERS: Emergency Medicine Emergency Medical Services; Internal Medicine; Nurse Practitioner; Student in an Organized Health Care Education/Training Program; Admitting Provider Family Medicine; Emergency Provider Emergency Medicine; PCP Family Medicine; Visit Provider Family Medicine
DX: I50.33 Acute on chronic diastolic (congestive) heart failure (principal); J96.02 Acute respiratory failure with hypercapnia; I48.0 Paroxysmal atrial fibrillation; E10.22 Type 1 diabetes mellitus with diabetic chronic kidney disease; N18.30 Chronic kidney disease, stage 3 unspecified; E10.65 Type 1 diabetes mellitus with hyperglycemia; J43.9 Emphysema, unspecified; I25.10 Atherosclerotic heart disease of native coronary artery without angina pectoris; E87.5 Hyperkalemia; E78.5 Hyperlipidemia, unspecified; I87.8 Other specified disorders of veins; E89.0 Postprocedural hypothyroidism; K21.9 Gastro-esophageal reflux disease without esophagitis; S00.03XA Contusion of scalp, initial encounter; R26.81 Unsteadiness on feet; Z79.02 Long term (current) use of antithrombotics/antiplatelets; Z79.4 Long term (current) use of insulin; Z79.899 Other long term (current) drug therapy; Z88.0 Allergy status to penicillin; Z88.2 Allergy status to sulfonamides; Z91.81 History of falling; Z95.5 Presence of coronary angioplasty implant and graft
CPT/HCPCS: 36415; 36600; 51701; 70450; 71045; 71046; 71275; 72125; 73110; 73120; 73502; 73552; 80048; 80053; 81003; 82550; 82805; 83735; 83880; 84100; 84132; 84439; 84443; 84480; 84484; 85025; 85027; 85055; 85380; 85610; 85730; 86140; 93005; 93306; 93970; 94003; 94618; 94640; 96374; 96375; 96376; 97110; 97116; 97161; 97165; 97530; 97535; 99285; A9270; G0378; J1644; J1815; J1940; J3475; Q9967

== ENCOUNTER 2020-07-09 15:23 | Outpatient (NON) | payer MEDICARE, SELFPAY ==
[2020-07-09 15:54] LABS: Blood Urea Nitrogen 25 mg/dL (7-17); Estimated Glomerular Filt Rate 54; Glucose 242 mg/dL (65-105)
[2020-07-10 19:29] LABS: Anion Gap 8 mmol/L (8-16); Calcium 9.9 mg/dL (8.4-10.2); Carbon Dioxide 28 mmol/L (22-30); Chloride 104 mmol/L (98-107); Magnesium 1.7 mg/dL (1.6-2.3); Potassium 4.9 mmol/L (3.4-5.0); Sodium 140 mmol/L (137-145)
== END 2020-07-09 15:24 ==
PROVIDERS: PCP Family Medicine; Visit Provider Nurse Practitioner Adult Health
DX: I13.0 Hypertensive heart and chronic kidney disease with heart failure and stage 1 through stage 4 chronic kidney disease, or unspecified chronic kidney disease (principal); E11.22 Type 2 diabetes mellitus with diabetic chronic kidney disease; I50.9 Heart failure, unspecified; N18.30 Chronic kidney disease, stage 3 unspecified
CPT/HCPCS: 80048; 83735

== ENCOUNTER 2020-07-25 22:24 | Emergency (ER) | payer MEDICARE, SELFPAY ==
--- NOTE | ~2020-07-25 | XR_ITS ---
EXAMINATION: XR chest 2V EXAM DATE: 07/25/2020 23:31 INDICATION: Found unresponsive. History of diabetes. TECHNIQUE: Frontal and lateral projections of the chest obtained and reviewed. Comparison is made to prior examination from 06/29/2020. FINDINGS: Cardiac silhouette is enlarged but stable in size compared to prior exam. There are small bilateral pleural effusions. Moderate-sized gastroesophageal hiatal hernia. Bibasilar airspace diseas e probably atelectasis but edema or infection not excludable. No pneumothorax. Left upper lobe granul shailesh. Old right rib fracture. The bones are osteopenic. There are bony degenerative changes. Cardiac monitoring device. IMPRESSION: 1. Cardiomegaly, small pleural effusions and adjacent atelectasis. 2. Possible basilar edema or infection. Reviewed, dictated and finalized at location A. L ADMINISTRATOR
[2020-07-25 22:31] VITALS: BP 187/107; PULSE 111; RESP 21; TEMP 37.1; O2SAT 99
[2020-07-25 22:36] LABS: Glucose Point of Care 154 (65-105)
--- NOTE | 2020-07-25 23:11 | ECG_ITS ---
Measurements Intervals [place] Rate: 107 P: [place]: 0 QRS: 33 QRSD: 97 T: 1 QT: 320 QTc: 428 Interpretive Statements ATRIAL FIBRILLATION WITH RAPID VENTRICULAR RESPONSE BASELINE ARTIFACT- I, II, III, AVR, AVL, AVF, V1-V2, V5 ABNORMAL ECG Electronically Signed On 07-26-2020 7:14:06 SERVICE LINE BUS CLEANER by Greg Barr D.O.
--- NOTE | 2020-07-25 23:25 | PC.NURSE ---
pt to xray at this time
[2020-07-25 23:34] VITALS: PULSE 130
[2020-07-25] MEDS: carvediloL 25 MG TABLET PO (23:34)
[2020-07-25 23:55] LABS: Basophils Percent Auto 0.5 % (0.2-1.2); Eosinophils Absolute Auto 0.1 K/mm3 (0-0.3); Eosinophils Percent Auto 1.7 % (0-4.4); Hematocrit 41.4 % (37.0-47.0); Immature Granulocyte Absolute 0.03 K/mm3 (0.00-0.031); Immature Granulocyte Percent A 0.5 % (0-0.5); Lymphocytes Absolute Auto 0.73 K/mm3 (0.9-3.2); Lymphocytes Percent Auto 12.4 % (18.3-44.2); Mean Corpuscular Hemoglobin 25.9 pg (26-34); Mean Corpuscular Volume 89.2 fl (80-100); Mean Platelet Volume 9.3 fl (7.4-10.4); Monocytes Absolute Auto 0.3 K/mm3 (0.1-0.6); Monocytes Percent Auto 5.1 % (2.6-8.5); Neutrophils Absolute Auto 4.7 K/mm3 (1.3-6.7); Neutrophils Percent Auto 79.8 % (45.5-73.1); Platelet Count Result 210 k/mm3 (150-375); Red Blood Count 4.64 M/mm3 (4.2-5.4); Red Cell Distribution Width 13.6 % (11.5-14.5); White Blood Count 5.9 K/mm3 (4.5-10.0)
[2020-07-25 23:57] VITALS: BP 167/99; PULSE 134; RESP 18; O2SAT 99
--- NOTE | 2020-07-25 23:57 | PC.NURSE ---
pt eating turkey sandwich and drinking apple juice per md verbal orders.
[2020-07-26] VITALS (7 sets, daily range): BP systolic 119–161; BP diastolic 88–104; PULSE 89–109; RESP 18–20; O2SAT 95–99
[2020-07-26 00:04] LABS: Anion Gap 4 mmol/L (8-16); Blood Urea Nitrogen 15 mg/dL (7-17); Calcium 10.1 mg/dL (8.4-10.2); Carbon Dioxide 34 mmol/L (22-30); Chloride 99 mmol/L (98-107); Estimated Glomerular Filt Rate > 60; Glucose 207 mg/dL (65-105); Potassium 4.3 mmol/L (3.4-5.0); Sodium 137 mmol/L (137-145)
[2020-07-26] MEDS: SODIUM CHLORIDE 0.9% IV 1,000 ML 999 ML IV CONT (00:17)
[2020-07-26 00:22] LABS: Add Urine Microscopic? YES; Appearance Urine Clear (Clear); Bacteria Urine Trace /hpf; Bilirubin Urine Negative (Negative); Blood Urine Negative (Negative); Color Urine Straw (Yellow); Glucose Urine UA 1+ mg/dL (Negative); Ketones Urine Negative (Negative); Leukocyte Esterase Ur Negative LEU/UL (Negative); Mucus Urine Rare /lpf; Nitrate Urine Negative (Negative); Protein Urine 2+ mg/dL (Negative); RBC Urine 0-2 /hpf (0-2); Urobilinogen Urine Negative mg/dL (<2.0)
[2020-07-26] MEDS: dilTIAZem HCl INJ 25 MG/5 ML VIAL 10 MG IV PUSH (00:29)
[2020-07-26] MEDS: ALBUTEROL SULFATE NEB 2.5 MG/0.5 ML INH 5 MG INHALATION (01:06)
[2020-07-26] MEDS: IPRATROPIUM BR 0.02% INH SOLN 0.5 MG/2.5 ML VIAL INHALATION (01:06)
--- NOTE | 2020-07-26 01:09 | ED.GENADULT ---
HPI - General Adult General Chief complaint: Recheck/Abnormal Lab/Rx Stated complaint: AMS Time Seen by Provider: 07/25/20 22:28 History of Present Illness HPI narrative: Patient is a 79-year-old female who presents ER with episode of altered mental status. Patient's blood sugar found to be in 50s and altered mental status reversed with IV dextrose. Patient is awake alert and oriented x3 at this time. She has no complaints of pain. She does report some mild dyspnea related to her chronic asthma and would like a breathing treatment. She has no chest pain or chest pressure. Heart rate elevated and she denies palpitations this point time. Patient reports she took some insulin earlier in the day but ate afterwards. She is unsure why her insulin would have dropped the weight did earlier. Related Data Home Medications Medication Instructions Recorded Confirmed albuterol sulfate 90 mcg/actuation 2 puff INHALATION Q4-6H PRN gm 07/29/19 06/23/20 aerosol inhaler atorvastatin 40 mg tablet 40 mg PO DAILY 07/29/19 06/23/20 clopidogrel 75 mg tablet 75 mg PO DAILY 07/29/19 06/23/20 insulin lispro 100 unit/mL 1 sliding scale dose SUB-Q 07/29/19 06/23/20 subcutaneous solution USEASDIRECTD mometasone-formoterol HFA 100 2 puff INHALATION DAILY 07/29/19 06/23/20 mcg-5 mcg/actuation aerosol inhaler pantoprazole 20 mg tablet,delayed 20 mg PO QAM 07/29/19 06/23/20 release thyroid (pork) 30 mg tablet 30 mg PO .MON-SUN-SUN tablet 07/29/19 06/23/20 insulin glargine 100 unit/mL 15 unit SUB-Q Q12H ml 07/30/19 06/23/20 subcutaneous solution Allergies Allergy/AdvReac Type Severity Reaction Status Date / Time lisinopril Allergy Mild raise Verified 06/23/20 15:33 potassium erythromycin base Allergy Unknown Rash Verified 06/30/20 17:35 Macrolide Antibiotics Allergy Unknown Rash Verified 06/23/20 15:33 mercury (elemental) Allergy Unknown Not Verified 07/01/20 09:19 Entered,Rash Penicillins Allergy Unknown Rash Verified 06/23/20 15:33 Sulfa (Sulfonamide Allergy Unknown Rash Verified 06/23/20 15:33 Antibiotics) MYCIN Allergy Mild Rash Uncoded 06/23/20 15:33 MERCURY Allergy Unknown Rash Uncoded 06/29/20 11:11 Review of Systems Review of Systems: All systems reviewed & are unremarkable except as noted in HPI and below Constitutional: Constitutional: Denies chills, Denies fever(s) and Denies weakness ENT: Denies nasal congestion and Denies sore throat Cardiovascular: Cardiovascular: Denies chest pain, Denies rapid heart rate and Denies radiating jaw, neck or arm pain Respiratory: Respiratory: Denies cough, Reports dyspnea and Reports wheezing Gastrointestinal: Gastrointestinal: Denies abdominal pain, Denies nausea and Denies vomiting Neurologic: Denies headache(s), Denies focal weakness and Denies numbness PMFSH Past Medical History Medical History Acute exacerbation of CHF (congestive heart failure) Acute exacerbation of chronic obstructive pulmonary disease GERD (gastroesophageal reflux disease) H/O gastric ulcer Hyperlipidemia Hypothyroidism Paroxysmal A-fib Type 1 diabetes mellitus with hyperglycemia Venous stasis Surgical History Surgical History History of heart artery stent X2 History of loop recorder S/P laparoscopic-assisted sigmoidectomy Status post partial thyroidectomy Family History Family History Mother Family history of diabetes mellitus in first degree relative Other Diabetes mellitus Social History Social History Social History: The patient lives with her significant other for over 30 some years. She has no children. She is retired from being a speech therapist. She is an only child. She states that she does not have any durable power consumer attorney for healthcare. Kavon
--- NOTE | 2020-07-26 02:12 | PC.NURSE ---
this rn called corona, pt's boyfriend, he states hes coming to get pt.
[2020-07-26 03:29] LABS: Glucose Point of Care 254 (65-105)
== END 2020-07-26 02:36 | disposition home or self-care (01) ==
PROVIDERS: Emergency Provider Emergency Medicine; PCP Family Medicine
DX: E10.649 Type 1 diabetes mellitus with hypoglycemia without coma (principal); Z79.4 Long term (current) use of insulin; I48.0 Paroxysmal atrial fibrillation; I50.9 Heart failure, unspecified; J44.9 Chronic obstructive pulmonary disease, unspecified; K21.9 Gastro-esophageal reflux disease without esophagitis; E78.5 Hyperlipidemia, unspecified; Z95.5 Presence of coronary angioplasty implant and graft; E89.0 Postprocedural hypothyroidism
CPT/HCPCS: 36415; 71046; 80048; 81001; 82948; 85025; 93005; 94640; 96361; 96374; 99284; A9270; J7030

== ENCOUNTER 2020-08-23 11:59 | Inpatient (IN) | payer MEDICARE, SELFPAY ==
[2020-08-23] VITALS (29 sets, daily range): BP systolic 102–140; BP diastolic 55–104; PULSE 87–126; RESP 16–29; TEMP 36.1–36.8; O2SAT 64–100; BMI 23.1
--- NOTE | ~2020-08-23 | XR_ITS ---
EXAMINATION: XR chest 1V portable EXAM DATE: 09/01/2020 14:11 INDICATION: Assess CHF. TECHNIQUE: Portable AP frontal chest x-ray was obtained. Comparison is made to prior examination from earlier same day. FINDINGS: There is cardiomegaly. There is segmental left basilar atelectasis or pneumonia. Small pleu ral effusions. Moderate chronic hyperinflation. Pulmonary vascular congestion. Prominent reticulation , could be persistent pulmonary edema or underlying chronic interstitial lung disease. No pneumothor ax. Bones appear osteopenic. Old right rib fractures. Compared to previous examination the congestive changes have improved. IMPRESSION: 1. Improvement in CHF exacerbation. 2. Segmental left basilar opacity, probably atelectasis or pneumonia. 3. Small pleural effusions. 4. Chronic hyperinflation. Reviewed, dictated and finalized at location A. SCHOOL MATH TEACHER
--- NOTE | ~2020-08-23 | US_ITS ---
EXAMINATION: US venous doppler [facility] DATE: 08/25/2020 14:01 INDICATION: Shortness of breath, lower limb swelling TECHNIQUE: Weeks scale images without and with compression and Doppler images of the bilateral lower e xtremity veins were obtained. COMPARISON: 06/23/2020 FINDINGS: The right common femoral vein, profunda femoral vein, femoral vein, popliteal vein, peroneal trunk, p osterior tibial veins, and greater saphenous vein are patent. The left common femoral vein, profunda femoral vein, femoral vein, popliteal vein, peroneal trunk, po sterior tibial veins, and greater saphenous vein are patent. IMPRESSION: 1. Patent bilateral lower extremity veins. No evidence of deep venous thrombosis. Reviewed, dictated and finalized at location A. D SECRETARY IMPRESSION: 1. Patent bilateral lower extremity veins. No evidence of deep venous thrombosi s.
--- NOTE | ~2020-08-23 | CT_ITS ---
EXAMINATION: CT brain wo con DATE: 08/24/2020 21:47 INDICATION: Stroke. TECHNIQUE: Computed tomography (CT) of the head was performed without intravenous contrast. The mA wa s adjusted according to patient size. Iterative reconstruction technique was employed. The dose-lengt h product was 681.00 mGy-cm. COMPARISON: Head CT 06/23/2020 FINDINGS: There are small old infarcts in left cerebellum. There are small old infarcts in the right basal ganglia. There are scattered areas of low attenuation in the cerebral white matter. There is no intracranial hemorrhage, acute infarction, or abnormal intracranial mass lesion. The ventricles are normal in size. There are likely changes of ocular lens replacement surgeries. There is mild mucosal thickening in the paranasal sinuses. The mastoid air cells are normal. IMPRESSION: 1. 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 2. Mild nonspecific cerebral white matter disease, which likely represents chronic small vessel ische taryn disease. Reviewed, dictated and finalized at location A. EN TACKER IMPRESSION: 1. 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 2. Mild nonspecific cerebral white matter disease, which likely represents lunchroom mother [place] small vessel ischemic disease.
--- NOTE | ~2020-08-23 | CT_ITS ---
EXAMINATION: CTA chest PE protocol EXAM DATE: 08/26/2020 09:08 INDICATION: COPD, respiratory failure. CHF. TECHNIQUE: Spiral CTA of the chest (pulmonary arteries) was performed with 100 cc Omnipaque 350 intr avenous contrast injection. Images were acquired during the pulmonary arterial phase. Coronal maxi mum intensity projection 3D-reconstructions were created by the technologist on dedicated workstation . Axial, coronal and sagittal reformatted images were reviewed. The dose-length product (DLP) for t his examination was 330.05 mGy-cm. The exposure was tailored according to patient size (auto mA exp osure control), and iterative reconstruction (ASIR) was used as additional dose reduction technique. Comparison is made to prior examination from 06/23/2020. FINDINGS: The main, central pulmonary arteries are dilated which can indicate elevated pulmonary art erial pressure, pulmonary arterial hypertension. There is left apical subsegmental pulmonary embolism new compared to previous examination. There is cardiomegaly, and also a moderate pericardial effusio n with increase in quantity of fluid. Dense mitral annular calcifications. Moderate coronary artery c alcifications. There has been interval increase in size of the small to moderate pleural effusions with progression in multi segmental left basilar atelectasis but improvement in the previously seen right basilar atel ectasis which is now segmental in size. There is mild to moderate emphysema. No pneumothorax. There a re old right-sided rib fractures. No mediastinal lymphadenopathy. Calcified right thyroid lobe nodule s. Moderate-sized gastroesophageal hiatal hernia. IMPRESSION: 1. Development of left apical subsegmental pulmonary embolism, low clot burden. 2. Cardiomegaly. Progression in now moderate-sized pericardial effusion. 3. Progression of small to moderate bilateral pleural effusions. 4. Left basilar multi segmental, right basilar subsegmental atelectasis. 5. Mild to moderate emphysema. 6. Moderate hiatal hernia. I discussed pulmonary embolism with nurse Herrera in the at 08/26/2020 09:26 NARCOTICS INVESTIGATOR. Reviewed, dictated and finalized at location B. OTICS INVESTIGATOR IMPRESSION: 1. Development of left apical subsegmental pulmonary embolism, low clot burden . 2. Cardiomegaly. Progression in now moderate-sized pericardial effusion. 3. Progression of small to moderate bilateral pleural effusions. 4. Left basilar multi segmental, right basilar subsegmental atelectasis. 5. Mild to moderate emphysema. 6. Moderate hiatal hernia. I discussed pulmonary embolism with nurse Herrera in the at 08/26/2020 09:26 NARCOTICS INVESTIGATOR .
--- NOTE | ~2020-08-23 | XR_ITS ---
EXAMINATION: XR chest 1V portable EXAM DATE: 08/23/2020 13:49 INDICATION: Shortness of breath and weakness. TECHNIQUE: Portable AP frontal chest x-ray was obtained. Comparison is made to prior examination from 07/25/2020. FINDINGS: Cardiac monitoring device. Cardiomegaly and pulmonary vascular congestion. Small to moderat e bilateral pleural effusions. Diffuse indistinct reticulation, probably pulmonary edema but pneumoni a not excludable. There is no pneumothorax suspected. There are bony degenerative changes. IMPRESSION: 1. Findings consistent with CHF exacerbation. 2. Pneumonia not excludable. 3. Small to moderate pleural effusions. Reviewed, dictated and finalized at location B. CLOSER MECHANIC
--- NOTE | ~2020-08-23 | CT_ITS ---
EXAMINATION: CT brain wo con EXAM DATE: 08/26/2020 11:59 INDICATION: Mental status changes. TECHNIQUE: Spiral CT of the head was performed without contrast. Axial, coronal and sagittal images were reviewed. The dose-length product (DLP) for this examination was 681.00 mGy-cm. The exposure w as tailored according to patient size, and iterative reconstruction (ASIR) was used as additional dos e reduction technique. Comparison is made to prior examination from 08/24/2020. FINDINGS: There is no acute intraparenchymal hemorrhage. No evidence of intraparenchymal brain mass lesion. No evidence of acute infarction. Please note that initial head CT has limited sensitivity f or small or acute infarctions. There is contrast from pulmonary scan performed earlier. There is mo derate periventricular and subcortical hypodensity, nonspecific but probably related to small vessel ischemic disease. There is moderate prominence of the sulci and ventricles related to cerebral atro phy. Punctate old right basal ganglia lacunar infarction. Small old left cerebellar infarction. Ther e is intracranial carotid arteriosclerosis. There are no extra-axial collections. There is no mass effect or midline shift. The orbits are unremarkable. Soft tissue is unremarkable. The visualized sinuses and mastoid air cells are well aerated. IMPRESSION: 1. No acute intracranial findings. 2. Chronic age related findings. 3. Old right basal ganglia, left cerebellar infarctions. Reviewed, dictated and finalized at location B. NTIFIC EDITOR
--- NOTE | ~2020-08-23 | US_ITS ---
EXAMINATION: US venous doppler UE DATE: 08/25/2020 14:01 INDICATION: Upper limb swelling TECHNIQUE: Grayscale ultrasound images without and with compression and Doppler ultrasound images of the bilateral upper extremity veins were obtained. COMPARISON: None. FINDINGS: The right internal jugular vein, subclavian vein, axillary vein, brachial veins, basilic vein, cephal ic vein, radial vein, and ulnar vein are patent. There is partial thrombosis of the left cephalic vein just above the antecubital fossa. The left inte rnal jugular vein, subclavian vein, axillary vein, brachial veins, basilic vein, radial vein, and uln ar vein are patent. IMPRESSION: 1. Partial thrombosis of the left cephalic vein. 2. No evidence of deep venous thrombosis on the right. These findings were discussed with Dr. Josey MD at 1408 hours on 08/25/2020. Reviewed, dictated and finalized at location A. [employer]
--- NOTE | ~2020-08-23 | XR_ITS ---
EXAMINATION: XR chest 1V portable DATE: 08/25/2020 05:41 INDICATION: Congestive heart failure TECHNIQUE: frontal view of the chest was obtained. COMPARISON: Chest radiograph dated 08/23/2020 FINDINGS: Cardiomegaly. Pulmonary vascular congestion and mild increased interstitial pattern consistent with m ild pulmonary edema. Opacities in the bilateral lower lung zones with blunting at the costophrenic an gles consistent with small bilateral pleural effusions and associated atelectasis and/or pneumonia. T his appears improved in the right lower lung zone. No pneumothorax. Coronary artery stenting. Left pe ctoral implantable teletypesetter monitor. Old right-sided rib fractures. IMPRESSION: 1. Likely congestive heart failure with cardiomegaly with mild pulmonary edema. 2. Small bilateral pleural effusions with associated bibasilar atelectasis and/or pneumonia with impr ovement on the right. Reviewed, dictated and finalized at location A. [employer] BIN TENDER IMPRESSION: 1. Likely congestive heart failure with cardiomegaly with mild pulmonary edema. 2. Small bilateral pleural effusions with associated bibasilar atelectasis and/ or pneumonia with improvement on the right.
--- NOTE | 2020-08-23 12:02 | ECG_ITS ---
Measurements Intervals [place] Rate: 120 P: [place]: 0 QRS: 12 QRSD: 95 T: 10 QT: 283 QTc: 401 Interpretive Statements ATRIAL FIBRILLATION WITH RAPID VENTRICULAR RESPONSE BASELINE ARTIFACT- I, III ABNORMAL ECG Electronically Signed On 08-23-2020 12:59:20 MANGLE TENDER by Greg Barr D.O.
[2020-08-23 12:36] LABS: Base Excess ABG -2.9 mEq/l (+/-2.0); Fractional Inspired Oxygen 28 %; HCO3 ABG 25.1 mEq/l (22.0-26.0); Oxygen Saturation ABG 95.4 % (95.0-100.0); Oxyhemoglobin 94.7 % THb (90.0-100.0); PO2 ABG 91.7 mmHg (80.0-100.0); PO2 FiO2 Ratio Arterial Blood 3.27 %; Total Hemoglobin 10.4 g/dL (12.0-18.0)
[2020-08-23 12:38] LABS: Device NASAL CANNULA; Modified Allen's Test Pass; Site Drawn RIGHT RADIAL; pH ABG 7.233 (7.350-7.450)
[2020-08-23 12:41] LABS: Basophils Percent Auto 0.4 % (0.2-1.2); Eosinophils Percent Auto 0.5 % (0-4.4); Hematocrit 33.8 % (37.0-47.0); Hemoglobin 9.5 g/dL (12.0-15.0); Immature Granulocyte Absolute 0.04 K/mm3 (0.00-0.031); Immature Granulocyte Percent A 0.5 % (0-0.5); Lymphocytes Absolute Auto 0.74 K/mm3 (0.9-3.2); Mean Corpuscular HGB Conc 28.1 g/dl (32-36); Mean Corpuscular Hemoglobin 25.4 pg (26-34); Mean Corpuscular Volume 90.4 fl (80-100); Mean Platelet Volume 9.6 fl (7.4-10.4); Monocytes Absolute Auto 0.6 K/mm3 (0.1-0.6); Neutrophils Absolute Auto 6.8 K/mm3 (1.3-6.7); Neutrophils Percent Auto 82.6 % (45.5-73.1); Platelet Count Result 268 k/mm3 (150-375); Red Blood Count 3.74 M/mm3 (4.2-5.4); Red Cell Distribution Width 14.4 % (11.5-14.5); White Blood Count 8.2 K/mm3 (4.5-10.0)
[2020-08-23] MEDS: carvediloL 25 MG TABLET PO ×2 (12:50→22:07)
[2020-08-23 12:51] LABS: INR 1.1; Prothrombin Time 14.8 Seconds (11.1-14.7)
[2020-08-23 12:55] LABS: Alanine Aminotransferase 29 U/L (4-35); Albumin Level 3.4 g/dL (3.5-5.1); Alkaline Phosphatase 127 U/L (38-126); Anion Gap 3 mmol/L (8-16); Aspartate Amino Transferase 38 U/L (14-36); Bilirubin,Total 0.4 mg/dL (0.2-1.3); Blood Urea Nitrogen 23 mg/dL (7-17); Calcium 8.9 mg/dL (8.4-10.2); Carbon Dioxide 29 mmol/L (22-30); Chloride 105 mmol/L (98-107); Estimated Glomerular Filt Rate 40; Glucose 332 mg/dL (65-105); Potassium 4.6 mmol/L (3.4-5.0); Sodium 137 mmol/L (137-145)
[2020-08-23 12:58] LABS: Platelet Estimate Adequate (Adequate)
[2020-08-23] MEDS: dilTIAZem HCl INJ 25 MG/5 ML VIAL 10 MG IV PUSH (12:58)
[2020-08-23 12:59] LABS: Hypochromasia 2+ (NORMAL)
[2020-08-23 13:10] LABS: NT Pro B Type Natriuretic Pept 14400 PG/ML (5-100); Troponin I 0.128 ng/mL (0.000-0.034)
--- NOTE | 2020-08-23 14:30 | ED.GENADULT ---
HPI - General Adult General Chief complaint: Shortness of Breath/Dyspnea <Johan Wagner PA-C - Last Filed: 08/23/20 14:37> Stated complaint: Low O2 from PCP office <Johan Wagner PA-C - Last Filed: 08/23/20 14:37> Time Seen by Provider: 08/23/20 12:01 <Johan Wagner PA-C - Last Filed: 08/23/20 14:37> Source: patient, old records reviewed and other (Primary care doctor) <SHERI Bullard Last Filed: 08/23/20 14:37> Mode of arrival: ambulatory <SHERI Bullard Last Filed: 08/23/20 14:37> Limitations: no limitations <Johan Wagner PA-C - Last Filed: 08/23/20 14:37> History of Present Illness HPI narrative: Patient is a 79-year-old female who presents from primary care doctor's office after she was being evaluated and found to be in A. fib also potentially heart failure was sent patient on arrival denying any pain notes that she was following up with primary care to go over oxygen being that she is supposed to wear oxygen with activity or when she feels as though she needs it patient denies any recent illness or other complaints on arrival and does not appear distressed <Johan Wagner PA-C - Last Filed: 08/23/20 14:37> Related Data Home medications: Home Medications Medication Instructions Recorded Confirmed albuterol sulfate 90 mcg/actuation 2 puff INHALATION Q4-6H PRN gm 07/29/19 06/23/20 aerosol inhaler atorvastatin 40 mg tablet 40 mg PO DAILY 07/29/19 06/23/20 clopidogrel 75 mg tablet 75 mg PO DAILY 07/29/19 06/23/20 insulin lispro 100 unit/mL 1 sliding scale dose SUB-Q 07/29/19 06/23/20 subcutaneous solution USEASDIRECTD mometasone-formoterol HFA 100 2 puff INHALATION DAILY 07/29/19 06/23/20 mcg-5 mcg/actuation aerosol inhaler pantoprazole 20 mg tablet,delayed 20 mg PO QAM 07/29/19 06/23/20 release thyroid (pork) 30 mg tablet 30 mg PO .MON-WED-FRI tablet 07/29/19 06/23/20 insulin glargine 100 unit/mL 15 unit SUB-Q Q12H ml 07/30/19 06/23/20 subcutaneous solution <Johan Wagner PA-C - Last Filed: 08/23/20 14:37> Allergies/adverse reactions: Allergies Allergy/AdvReac Type Severity Reaction Status Date / Time lisinopril Allergy Mild raise Verified 08/23/20 13:23 potassium erythromycin base Allergy Unknown Rash Verified 08/23/20 13:23 Macrolide Antibiotics Allergy Unknown Rash Verified 08/23/20 13:23 mercury (elemental) Allergy Unknown Not Verified 08/23/20 13:23 Entered,Rash Penicillins Allergy Unknown Rash Verified 08/23/20 13:23 Sulfa (Sulfonamide Allergy Unknown Rash Verified 08/23/20 13:23 Antibiotics) MYCIN Allergy Mild Rash Uncoded 08/23/20 13:23 MERCURY Allergy Unknown Rash Uncoded 08/23/20 13:23 <Johan Wagner PA-C - Last Filed: 08/23/20 14:37> Review of Systems Review of Systems: All systems reviewed & are unremarkable except as noted in HPI and below <Johan Wagner PA-C - Last Filed: 08/23/20 14:37> [facility] Past Medical History Medical History: Medical History Acute exacerbation of CHF (congestive heart failure) Acute exacerbation of chronic obstructive pulmonary disease GERD (gastroesophageal reflux disease) H/O gastric ulcer Hyperlipidemia Hypothyroidism Paroxysmal A-fib Type 1 diabetes mellitus with hyperglycemia Venous stasis <Johan Wagner PA-C - Last Filed: 08/23/20 14:37> Surgical History Surgical History: Surgical History History of heart artery stent X2 History of loop recorder S/P laparoscopic-assisted sigmoidectomy Status post partial thyroidectomy <Johan Wagner PA-C - Last Filed: 08/23/20 14:37> Family History Family History: Family History Mother Family history of diabetes mellitus in first degree relative Other Diabetes mellitus <Johan Wagner PA-C
[2020-08-23 14:34] LABS: Alveolar/Arterial O2 Gradient 0.1 mmHg; Base Excess ABG -6.5 mEq/l (+/-2.0); Carboxyhemoglobin 0.2 % THb (0-2.0); Fractional Inspired Oxygen 21 %; HCO3 ABG 20.7 mEq/l (22.0-26.0); Methemoglobin ABG 0.3 %THb (0-1.5); Oxygen Content ABG 13.9 %vol (16.0-22.0); Oxygen Saturation ABG 95.7 % (95.0-100.0); Oxyhemoglobin 95.3 % THb (90.0-100.0); PCO2 ABG 48.4 mmHg (35.0-45.0); PO2 ABG 91.7 mmHg (80.0-100.0); PO2 FiO2 Ratio Arterial Blood 4.37 %; Reduced Hemoglobin 4.2 %THb (0-5.0); Total Hemoglobin 10.3 g/dL (12.0-18.0)
[2020-08-23 14:35] LABS: Device ROOM AIR; Modified Allen's Test Pass; Site Drawn RIGHT RADIAL; pH ABG 7.248 (7.350-7.450)
[2020-08-23] MEDS: FUROSEMIDE INJ 40 MG/4 ML VIAL IV PUSH ×2 (14:38→22:06)
--- NOTE | 2020-08-23 14:38 | PC.NURSE ---
straight cath done at bedside by certified medication technician. tolerated well. HR better controlled after meds. lasix given. will order lunch tray.
[2020-08-23 14:44] LABS: Free T4 Free Thyroxine Reflex 1.02 ng/dL (0.78-2.19)
[2020-08-23 14:48] LABS: Add Urine Microscopic? YES; Appearance Urine Clear (Clear); Bacteria Urine Trace /hpf; Bilirubin Urine Negative (Negative); Blood Urine Negative (Negative); Color Urine Yellow (Yellow); Glucose Urine UA 1+ mg/dL (Negative); Hyaline Casts Urine 20-29 /lpf; Ketones Urine Negative (Negative); Leukocyte Esterase Ur Negative LEU/UL (Negative); Mucus Urine Rare /lpf; Nitrate Urine Negative (Negative); Protein Urine 1+ mg/dL (Negative); RBC Urine 0-2 /hpf (0-2); Specific Grav Ur 1.014 (1.001-1.035); Squamous Epithelial Cell Urine Rare /hpf (Few); Urobilinogen Urine Negative mg/dL (<2.0); WBC Urine 0-3 /hpf
[2020-08-23 15:11] LABS: Magnesium 0.9 mg/dL (1.6-2.3)
[2020-08-23 15:15] LABS: Beta-Hydroxybutyrate/Acetoacetate 0.25 mmol/L (0.02-0.27)
[2020-08-23 16:27] LABS: Troponin I 0.173 ng/mL (0.000-0.034)
--- NOTE | 2020-08-23 17:15 | PM.IMHP ---
H&P: HPI History of Present Illness Date/Time: 08/23/20 17:15 Chief Complaint: Hypoxia Narrative: Rina Latif is a 79 year old female with dCHF and chronic respiratory failure sent to the ED from the primary care doctor's office for hypoxia and possible CHF. Patient seen in ED on 06/23/20 for fall and leg edema. She was found to be in AFib but Cardiology notes state that she has chronic paroxysmal AFib. She was not taking the correct Coreg dose (25mg BID) per the notes. She cannot tolerate anticoagulation due to bleeding from venous ulcers. It was felt that she had new onset CHF and was treated with diuresis. Echo showing EF 65-70% but diastolic function unable to be determined. She was also noted to have hypoxia and hypercarbia and was seen by Pulmonary. Trying to arrange for home BiPAP but she was refusing BiPAP while hospitalized. Discharged home on Lasix 40mg dialy, Coreg 25mg BID, and home on 2L nasal cannula on 07/02/20 . Patient is alert and oriented x4. However she has difficulty providing a detailed history. Patient denies any fever, chills, blurry vision, double vision, odynophagia, dysphagia, hearing loss, tinnitus. She has been having episodes of shortness of breath with wheezing which is chronic for her and she uses albuterol 2 to 3 times a day for this. She denies coughing, chest pain or palpitations. She is up frequently at night but denies any PND or orthopnea symptoms. She has nocturia 1-2 times a night which seems to be chronic. No dysuria or hematuria. No melena or hematochezia. No nausea, vomiting or diarrhea. She does have issues with constipation at times. Patient wears home oxygen at 2 L. she wears this at night and while watching TV. She does not wear it at mealtimes or while shopping. She has had diabetes since age 26 and states that she is a type 1 diabetic. She has a continues glucose monitor in place. No history of seizures or strokes. No weakness in her arms or legs. She does not not know if she has peripheral neuropathy. She cannot answer the question if she has numbness in her feet at this time. She normally walks with walker or cane when shopping. She does not use anticoagulation for her atrial fibrillation because he has bleeding from with venous stasis ulcers. These are almost healed. She has been having home health nurse 3 times a week but this has been decreased but once a week now. Patient has been compliant with her medications as far she is aware. She provides vague answers at times making history is somewhat unreliable here. She presented the primary care doctor's office for evaluation. She states she was there for fluid retention but was told that she does not have fluid retention. When asked why she was sent to the hospital she states he was to be monitored but she cannot tell me for what reason. Primary care doctor's office note states that the patient's pulse rate was 129 and irregular with a pulse ox of 75% on room air. She mentioned to the primary care doctor that she only uses the oxygen as needed. Patient was transferred to the emergency room for this reason. In the emergency room patient was tachycardic 126 with respiratory of 24 and a pulse ox of 64% on room air. Chest x-ray reviewed was reviewed showing findings consistent with CHF exacerbation. Pneumonia cannot be excluded. She had small to moderate pleural effusions. EKG showed atrial fibrillation with RVR. She was anemic with a hemoglobin 9.5 but not a common from prior hospitalization. ABG showing 7.23/61/92 on 2L. She was not put on BiPAP. Repeat ABG improved on RA at 7.25/48/92. Lactic acid and BHO normal. Troponin to 0.178. BNP 14,400. Magnesium was low. TSH was normal. Creatinine 1.3 which is again not uncommon for this patient. Urinalysis showed 1+ protein 1+ glucose. She was treated with diltiazem 10 mg IV once and given a dose of Coreg. Lasix 40 mg IV once given as well. She was admitted for further care. The patien
[2020-08-23 17:29] LABS: Glucose Point of Care 450 (65-105)
[2020-08-23 18:14] LABS: Troponin I 0.178 ng/mL (0.000-0.034)
[2020-08-23 18:18] LABS: Total Triiodothyronine (T3) 0.78 NG/ML (0.97-1.69)
--- NOTE | 2020-08-23 20:03 | ADMGEN ---
This patient, Rina Latif, was admitted to IMU Room 214-01 @ 1720 Patientoriented to hospital policies and general routines including ID bracelet, bed and alarms, visiting hours, pain management, procedures, bathroom and other care routines, personal items, smoking policy, room service/diet, and visiting hours. Monitor atrial fib @ 90's Patient/ encouraged to report perceived risks to care and to ask questions if they do not understand what they are told or what they should do. 1800- Dr. Dc into see pt
[2020-08-23 20:46] LABS: Glucose Point of Care 439 (65-105)
[2020-08-23] MEDS: MAGNESIUM OXIDE 200 MG TABLET PO (22:06)
[2020-08-23] MEDS: DOCUSATE SODIUM 100 MG CAPSULE PO (22:06)
[2020-08-23] MEDS: INSULIN ASPART (*BKC) 100 UNITS/ML 10 UNITS SUB-Q (22:07)
[2020-08-23] MEDS: INSULIN GLARGINE (*BKC) 100 UNITS/ML 15 UNITS SUB-Q (22:07)
[2020-08-23] MEDS: MAGNESIUM SULF 2 GM/WATER 50ML 2 GM/50 ML BAG IVPB (22:57)
[2020-08-23 23:49] LABS: Glucose Point of Care > 500 (65-105)
[2020-08-24] VITALS (22 sets, daily range): BP systolic 90–107; BP diastolic 51–71; PULSE 52–102; RESP 18–25; TEMP 35.8–36.7; O2SAT 80–98
[2020-08-24] MEDS: INSULIN ASPART (*BKC) 100 UNITS/ML 15 UNITS SUB-Q ×2 (00:12→01:30)
[2020-08-24 00:24] LABS: Anion Gap 4 mmol/L (8-16); Blood Urea Nitrogen 32 mg/dL (7-17); Calcium 8.2 mg/dL (8.4-10.2); Carbon Dioxide 26 mmol/L (22-30); Chloride 104 mmol/L (98-107); Estimated CRCL calculation 27 ml/min; Estimated Glomerular Filt Rate 34; Glucose 528 mg/dL (65-105); Potassium 4.9 mmol/L (3.4-5.0); Sodium 134 mmol/L (137-145)
[2020-08-24 01:27] LABS: Glucose Point of Care 435 (65-105)
[2020-08-24 05:15] LABS: Glucose Point of Care 184 (65-105)
[2020-08-24 05:25] LABS: Hematocrit 28.9 % (37.0-47.0); Hemoglobin 8.2 g/dL (12.0-15.0); Mean Corpuscular HGB Conc 28.4 g/dl (32-36); Mean Corpuscular Hemoglobin 25.4 pg (26-34); Mean Corpuscular Volume 89.5 fl (80-100); Mean Platelet Volume 9.5 fl (7.4-10.4); Platelet Count Result 229 k/mm3 (150-375); Red Blood Count 3.23 M/mm3 (4.2-5.4); Red Cell Distribution Width 14.2 % (11.5-14.5); White Blood Count 5.2 K/mm3 (4.5-10.0)
[2020-08-24 05:35] LABS: Alveolar/Arterial O2 Gradient 20.9 mmHg; Base Excess ABG 0.3 mEq/l (+/-2.0); Carboxyhemoglobin 0.3 % THb (0-2.0); Fractional Inspired Oxygen 24 %; HCO3 ABG 28.4 mEq/l (22.0-26.0); Methemoglobin ABG 0.4 %THb (0-1.5); Oxygen Content ABG 11.9 %vol (16.0-22.0); Oxygen Saturation ABG 90.7 % (95.0-100.0); Oxyhemoglobin 90.3 % THb (90.0-100.0); PO2 ABG 70.3 mmHg (80.0-100.0); PO2 FiO2 Ratio Arterial Blood 2.93 %; Total Hemoglobin 9.3 g/dL (12.0-18.0)
[2020-08-24 05:36] LABS: Device NASAL CANNULA; Modified Allen's Test Unable to perform; PCO2 ABG 67.2 mmHg (35.0-45.0); Site Drawn RIGHT RADIAL; pH ABG 7.244 (7.350-7.450)
[2020-08-24 05:36] LABS: Lactic Acid Reflex 1.5 mmol/L (0.7-2.1)
[2020-08-24 05:39] LABS: Alanine Aminotransferase 22 U/L (4-35); Albumin Level 2.8 g/dL (3.5-5.1); Alkaline Phosphatase 92 U/L (38-126); Anion Gap 3 mmol/L (8-16); Aspartate Amino Transferase 22 U/L (14-36); Bilirubin,Total 0.3 mg/dL (0.2-1.3); Blood Urea Nitrogen 31 mg/dL (7-17); Calcium 8.8 mg/dL (8.4-10.2); Carbon Dioxide 29 mmol/L (22-30); Chloride 105 mmol/L (98-107); Creatine Kinase < 20 U/L (30-135); Estimated CRCL calculation 27 ml/min; Estimated Glomerular Filt Rate 34; Glucose 162 mg/dL (65-105); Magnesium 1.8 mg/dL (1.6-2.3); Sodium 137 mmol/L (137-145)
[2020-08-24 05:51] LABS: Troponin I 0.123 ng/mL (0.000-0.034)
[2020-08-24 06:01] LABS: Iron 27 ug/dL (37-170)
[2020-08-24 06:11] LABS: Percent Iron Saturation 8 % (20-50)
[2020-08-24 06:41] LABS: Folic Acid 11.1 ng/mL (2.76->20)
[2020-08-24 08:07] LABS: Glucose Point of Care 60 (65-105)
[2020-08-24] MEDS: ATORVASTATIN 40 MG TABLET PO (09:21)
[2020-08-24] MEDS: carvediloL 25 MG TABLET PO (09:22)
[2020-08-24] MEDS: CLOPIDOGREL BISULFATE 75 MG TABLET PO (09:22)
[2020-08-24] MEDS: PANTOPRAZOLE SODIUM IV 40 MG VIAL IV PUSH (09:23)
[2020-08-24] MEDS: ENOXAPARIN 40 MG/0.4 ML SYRINGE SUB-Q (09:23)
[2020-08-24 09:26] LABS: Glucose Point of Care 85 (65-105)
[2020-08-24] MEDS: FUROSEMIDE INJ 40 MG/4 ML VIAL IV PUSH ×2 (09:27→17:34)
[2020-08-24 11:10] LABS: Glucose Point of Care 85 (65-105)
[2020-08-24] MEDS: MAGNESIUM OXIDE 200 MG TABLET PO (11:34)
[2020-08-24 12:04] LABS: Glucose Point of Care 77 (65-105)
[2020-08-24 13:08] LABS: Glucose Point of Care 70 (65-105)
[2020-08-24] MEDS: GLUCOSE ORAL GEL 15 GM OF GLUCSE IN 37.5 GM TUBE PO (13:14)
[2020-08-24 13:31] LABS: Glucose Point of Care 81 (65-105)
--- NOTE | 2020-08-24 13:59 | PM.IMPN ---
Progress Note: A&P Assessment and Plan (1) Acute on chronic respiratory failure: Code(s): J96.20 - Acute and chronic respiratory failure, unspecified whether with hypoxia or hypercapnia Status: Acute Assessment and Plan: Patient hypoxic at the PCPs office. She wears O2 2L at home but intermittently. In the ED, she is noted to be mostly hypercapneic and only mildly hypoxic. Home BiPAP was being arrranged last admission but was refusing BiPAP. No Apnea link found in the chart. She may be using too much O2 at home resulting in the CO2 retention. Probably a component of metabolic acidosis as well; CHARLES related? Add BiPAP tonight and repeat ABG in the morning. As above noted. Will continue with BiPAP and monitor arterial blood gas. Repeat chest x-ray in the morning. (2) Elevated troponin: Code(s): R77.8 - Other specified abnormalities of plasma proteins Status: Acute Assessment and Plan: Troponin elevated to 0.178. EKG reviewed and showing AFib/RVR bit no obvious evidence of ischemic changes. Troponin elevated but flat and probably Type II [place] related to the AFib/RVR, respiratory failure, CHF exacerbation and CHARLES. Cardiology consult. Consider repeating Echo looking at wall motion. Repeat troponin in the morning. (3) Congestive heart failure: Code(s): I50.9 - Heart failure, unspecified Status: Acute Assessment and Plan: Echo on 06/24/20 showing EF of 65-70% with indeterminate diastolic function. She had moderate to severe tricuspid regurgitation and mild pulmonary hypertension. Start IV diuretics. Monitor renal function and UOP. Daily weights. Dietary consult. Heart healthy diabetic diet. With continued diuresis. Repeat chest x-ray in the month (4) Paroxysmal A-fib: Code(s): I48.0 - Paroxysmal atrial fibrillation Status: Chronic Assessment and Plan: Patient with paroxysmal atrial fibrillation which is chronic. [id number] 5. She is on Coreg 25 mg twice a day which has controlled her rate the past. There may be an issue of medication non compliance. Resume Coreg. Will discuss with her about anticoagulation now that her venous ulcer seem to be healing. Continue with diet-controlled and weight loss cardiology input. Case discussed with cardiology in detail. Previous documentation reviewed. Because of very high risk of bleeding in the past cardiology has recommended not to anticoagulate her. She is also not compliant with her medications. High risk of bleeding, noncompliance with medication and high creatinine at this time will continue with Plavix and hold off on Lovenox at this time. (5) CHARLES (acute kidney injury): Code(s): N17.9 - Acute kidney failure, unspecified Status: Acute Assessment and Plan: Creatinine 1.3 on admission. Over diuresis seems less likely given physical findings. Suspect more likely this is related to poor diastolic compliance and decreased forward flow. Creatinine was elevated at last admission and improved with diuresis. Suspect this will occur again. Monitor renal function closely. Check renal ultrasound if creatinine does not improve as expected. Monitor electrolytes BUN and creatinine. (6) Hypomagnesemia: Code(s): E83.42 - Hypomagnesemia Status: Acute Assessment and Plan: Magnesium 0.9. Superiorly to diuretics. Will replace. (7) Type 1 diabetes mellitus with hyperglycemia: Code(s): E10.65 - Type 1 diabetes mellitus with hyperglycemia Status: Chronic Assessment and Plan: Patient with elevated glucose on admission. This was not treated in the emergency room and she was fed resulting down to glucose of 450. BHO normal and anion gap 3 so do not feel she is in DKA. Will start AccuCheks covering with sliding scale. Hypoglycemia protocol will be available as needed. Resume home insulin regimen. Check A1c. (8) DVT prophylaxis: Code(
[2020-08-24 15:01] LABS: Hemoglobin A1C 8.1 % (<5.7)
[2020-08-24 16:38] LABS: Glucose Point of Care 184 (65-105)
[2020-08-24 20:17] LABS: Glucose Point of Care 368 (65-105)
[2020-08-24 21:31] LABS: Glucose Point of Care 388 (65-105)
--- NOTE | 2020-08-24 22:00 | PM.EVENT ---
Event Note Event Note Event Note: 08/24/2020 at 21:30 S: I received a call from the patient's nurse who reports a change in patient condition. She has concerns that the patient may be having a stroke, with mild right-sided facial droop and garbled speech. Patient was last seen normal approximately 30 minutes prior. I am told that the patient is alert and oriented x4 at baseline however is not a great historian, has an odd affect, and does have periods of confusion. Stat brain CT was ordered and showed no evidence for acute stroke. I evaluated the patient in CT. The patient sat up in bed on her own, with equal strength in upper and lower extremities. No obvious facial asymmetry was noted at the time my evaluation. Speech was perhaps somewhat slurred however she was not wearing her dentures and I was able to easily understand what she was saying. She seemed more delirious and paranoid, continuously asking us to help her however she would not elaborate on what it was that she needed. Somewhat redirectable but she continued to perseverate on the fact that she needed something. She was able to tell me her name and that she was in the hospital but provided no other history. When the nurses attempted to perform neurologic checks, the patient continues to shush her. Chart reviewed. Blood pressures have been soft throughout the day. Glucose was low this morning but has been in the 300s this evening. Brain CT showed no acute findings. O: Blood pressures have been soft throughout the day but are stable. Alert and oriented to name. She knew that she was in the hospital. Cranial nerves 2-12 grossly intact. No pronator drift. Extraocular motions intact. Hand orthotist/prosthetist and foot pushes equal bilaterally. She is moving about the bed freely without obvious deficits. She did not attempt to do [id number] a rapid alternating movements or [id number]-nv-hges. Oral mucosa is very dry. Lips are chapped. She is edentulous. Rate controlled AFib. Mouth breather, frequently hypoxic due to same. Charcot arthropathy of the right foot, right leg externally rotated. The patient seems delirious, reaches for staff members in asks for help however she does not elaborate what she needs. A: Confusion/delirium. The patient's nurse reports that this is a significant change however the more we talk it sounds as though the patient exhibits odd behavior although she did not have similar symptoms last night she may very well be exhibiting sundowners or hospital associated delirium. Could be a component of metabolic encephalopathy and she is being diuresed and appears dehydrated. No obvious symptoms or findings to suggest infection at this time. She did not receive any medications today that could have altered her behavior. ABG once again consistent with respiratory acidosis however the patient has continuously refused BiPAP. TIA/CVA considered as well. P: Stat brain CT was unremarkable for acute findings. I suppose she may have had a TIA as nurse reported mild right-sided facial droop although that was not appreciated on my exam. Given her delirium it is difficult and really impossible to obtain accurate NIH stroke scale but she has no significant deficits at this time aside from the confusion and nonsensical speech at times. She is not a candidate for anticoagulation for her Afib thus she would not be a candidate for tPA although she does not have significant deficits to require tPA either. Neurologic checks will be performed q.4 hours. We will attempt once again to get the patient on her BiPAP. Stat labs to rule out metabolic abnormalities. Critical Care Time Critical Care Time: Yes Total Critical Care Time: 40 Attestation: Due to a high probability of clinically significant, life threatening deterioration, the patient required my highest level of preparedness to intervene emergently and I personally spent this critical care time directly and personally managing the patient. This cr
[2020-08-24 22:56] LABS: Base Excess ABG -1.7 mEq/l (+/-2.0); Carboxyhemoglobin 0.3 % THb (0-2.0); Fractional Inspired Oxygen 26 %; HCO3 ABG 25.6 mEq/l (22.0-26.0); Methemoglobin ABG 0.4 %THb (0-1.5); Oxygen Content ABG 13.3 %vol (16.0-22.0); Oxygen Saturation ABG 89.4 % (95.0-100.0); Oxyhemoglobin 88.9 % THb (90.0-100.0); PCO2 ABG 55.9 mmHg (35.0-45.0); PO2 ABG 64.1 mmHg (80.0-100.0); PO2 FiO2 Ratio Arterial Blood 2.47 %; Reduced Hemoglobin 10.4 %THb (0-5.0); Total Hemoglobin 10.6 g/dL (12.0-18.0)
[2020-08-24 22:58] LABS: Device NASAL CANNULA; Liters per Minute 1.5 LPM; Modified Allen's Test Pass; Site Drawn LEFT RADIAL; pH ABG 7.278 (7.350-7.450)
[2020-08-24 23:16] LABS: Glucose Point of Care 401 (65-105)
--- NOTE | 2020-08-24 23:32 | PC.NURSE ---
PATIENTS LAST KNOWN NORMAL WAS MAYBE 30 MIN. PRIOR TO GOING IN TO GIVE PATIENT MEDS. PATIENT SPEECH WAS GARBLED AN PATIENT WAS ORIENTED X1. SHE HAD A SIGNIFICANT RT FACIAL DROOP AT THE TIME AND RT ARM DEVIATION. UNABLE TO GET PATIENT TO COOPERATE FOR ANY OTHER NEURO TEST. SHE IS CONFUSED, KEEPS REPEATING FOR SOMEONE TO HELP HER, BUT WILL NOT SAY WHAT SHE NEEDS HELP WITH. DAFNE GARCIA RECEIVING DOCK CHECKER AWARE. STAT HEAD CT DONE. PATIENT MOVED CLOSER TO DESK.
[2020-08-25] VITALS (22 sets, daily range): BP systolic 120–154; BP diastolic 63–99; PULSE 88–122; RESP 16–21; TEMP 36.1–36.9; O2SAT 93–99
[2020-08-25 01:36] LABS: Ammonia < 9 umol/L (9-30)
[2020-08-25 01:38] LABS: Alanine Aminotransferase 23 U/L (4-35); Albumin Level 3.1 g/dL (3.5-5.1); Alkaline Phosphatase 120 U/L (38-126); Anion Gap 1 mmol/L (8-16); Aspartate Amino Transferase 22 U/L (14-36); Bilirubin,Total 0.4 mg/dL (0.2-1.3); Blood Urea Nitrogen 40 mg/dL (7-17); Carbon Dioxide 32 mmol/L (22-30); Chloride 100 mmol/L (98-107); Estimated CRCL calculation 25 ml/min; Estimated Glomerular Filt Rate 31; Glucose 450 mg/dL (65-105); Magnesium 1.7 mg/dL (1.6-2.3); Potassium 4.8 mmol/L (3.4-5.0); Sodium 133 mmol/L (137-145)
--- NOTE | 2020-08-25 02:28 | PC.NURSE ---
WENT TO DO NEURO ASSESSMENT AND ALL PATIENT WOULD DO WAS [facility] ME. SHE WOULD NOT ANSWER ANY QUESTION OR DO ANYTHING PURPOSEFULLY, JUST KEEP SHHHING ME.
[2020-08-25 03:13] LABS: Free T4 Free Thyroxine Reflex 0.99 ng/dL (0.78-2.19)
[2020-08-25] MEDS: INSULIN ASPART (*BKC) 100 UNITS/ML 12 UNITS SUB-Q (03:22)
[2020-08-25] MEDS: SILVERGEL (ELTA) 45 ML 1 APPLIC TOPICAL ×3 (03:24→21:41)
[2020-08-25 03:55] LABS: Total Triiodothyronine (T3) 0.78 NG/ML (0.97-1.69)
[2020-08-25 04:54] LABS: Hematocrit 31.4 % (37.0-47.0); Hemoglobin 9.1 g/dL (12.0-15.0); Mean Corpuscular Hemoglobin 25.3 pg (26-34); Mean Corpuscular Volume 87.5 fl (80-100); Mean Platelet Volume 9.7 fl (7.4-10.4); Platelet Count Result 262 k/mm3 (150-375); Red Blood Count 3.59 M/mm3 (4.2-5.4); Red Cell Distribution Width 14.1 % (11.5-14.5); White Blood Count 4.9 K/mm3 (4.5-10.0)
[2020-08-25 06:19] LABS: Base Excess ABG 3.2 mEq/l (+/-2.0); HCO3 ABG 30.7 mEq/l (22.0-26.0); PO2 ABG 87.6 mmHg (80.0-100.0); pH ABG 7.299 (7.350-7.450)
[2020-08-25 06:20] LABS: Alveolar/Arterial O2 Gradient 65.7 mmHg; Oxygen Saturation ABG 95.5 % (95.0-100.0); PO2 FiO2 Ratio Arterial Blood 2.74 %
[2020-08-25 06:21] LABS: Device OTHER DEVICE; Fractional Inspired Oxygen 32 %; Modified Allen's Test Unable to perform; Oxygen Content ABG 13.4 %vol (16.0-22.0); Oxyhemoglobin 94.4 % THb (90.0-100.0); Site Drawn RIGHT RADIAL
[2020-08-25 06:35] LABS: Alanine Aminotransferase 22 U/L (4-35); Alkaline Phosphatase 107 U/L (38-126); Anion Gap 4 mmol/L (8-16); Aspartate Amino Transferase 20 U/L (14-36); Bilirubin,Total 0.4 mg/dL (0.2-1.3); Blood Urea Nitrogen 40 mg/dL (7-17); Calcium 9.1 mg/dL (8.4-10.2); Carbon Dioxide 32 mmol/L (22-30); Chloride 100 mmol/L (98-107); Estimated CRCL calculation 27 ml/min; Estimated Glomerular Filt Rate 34; Glucose 339 mg/dL (65-105); Potassium 4.3 mmol/L (3.4-5.0); Sodium 136 mmol/L (137-145)
--- NOTE | 2020-08-25 06:52 | PC.NURSE ---
patient continues to be confused. when asked a question, she states, hush, be still, quiet. those are the only words spoken by patient. patient continues to remove everything.
[2020-08-25 07:18] LABS: Anion Gap 1 mmol/L (8-16); Blood Urea Nitrogen 40 mg/dL (7-17); Calcium 8.9 mg/dL (8.4-10.2); Carbon Dioxide 33 mmol/L (22-30); Chloride 104 mmol/L (98-107); Estimated CRCL calculation 29 ml/min; Estimated Glomerular Filt Rate 36; Glucose 108 mg/dL (65-105); Potassium 4.3 mmol/L (3.4-5.0); Sodium 138 mmol/L (137-145)
[2020-08-25 08:02] LABS: Glucose Point of Care 72 (65-105)
--- NOTE | 2020-08-25 08:11 | PM.IMPN ---
Progress Note: A&P Assessment and Plan (1) Acute on chronic respiratory failure: Code(s): J96.20 - Acute and chronic respiratory failure, unspecified whether with hypoxia or hypercapnia Status: Acute Assessment and Plan: Patient hypoxic at the PCPs office. She wears O2 2L at home but intermittently. In the ED, she is noted to be mostly hypercapneic and only mildly hypoxic. Home BiPAP was being arrranged last admission but was refusing BiPAP. No Apnea link found in the chart. She may be using too much O2 at home resulting in the CO2 retention. Probably a component of metabolic acidosis as well; CHARLES related? Add BiPAP tonight and repeat ABG in the morning. As above noted. Will continue with BiPAP and monitor arterial blood gas. Repeat chest x-ray in the morning. ABG reviewed has she has high CO2. Patient continued to refuse to wear BiPAP. Will consult pulmonary. (2) Elevated troponin: Code(s): R77.8 - Other specified abnormalities of plasma proteins Status: Acute Assessment and Plan: Troponin elevated to 0.178. EKG reviewed and showing AFib/RVR bit no obvious evidence of ischemic changes. Troponin elevated but flat and probably Type II RI related to the AFib/RVR, respiratory failure, CHF exacerbation and CHARLES. Cardiology consult. Consider repeating Echo looking at wall motion. Repeat troponin in the morning. (3) Congestive heart failure: Code(s): I50.9 - Heart failure, unspecified Status: Acute Assessment and Plan: Echo on 06/24/20 showing EF of 65-70% with indeterminate diastolic function. She had moderate to severe tricuspid regurgitation and mild pulmonary hypertension. Start IV diuretics. Monitor renal function and UOP. Daily weights. Dietary consult. Heart healthy diabetic diet. With continued diuresis. Repeat chest x-ray noted. (4) Paroxysmal A-fib: Code(s): I48.0 - Paroxysmal atrial fibrillation Status: Chronic Assessment and Plan: Patient with paroxysmal atrial fibrillation which is chronic. [id number] 5. She is on Coreg 25 mg twice a day which has controlled her rate the past. There may be an issue of medication non compliance. Resume Coreg. Will discuss with her about anticoagulation now that her venous ulcer seem to be healing. Continue with diet-controlled and weight loss cardiology input. (5) CHARLES (acute kidney injury): Code(s): N17.9 - Acute kidney failure, unspecified Status: Acute Assessment and Plan: Creatinine 1.3 on admission. Over diuresis seems less likely given physical findings. Suspect more likely this is related to poor diastolic compliance and decreased forward flow. Creatinine was elevated at last admission and improved with diuresis. Suspect this will occur again. Monitor renal function closely. Check renal ultrasound if creatinine does not improve as expected. Monitor electrolytes BUN and creatinine. (6) Hypomagnesemia: Code(s): E83.42 - Hypomagnesemia Status: Acute Assessment and Plan: Magnesium 0.9. Superiorly to diuretics. Will replace. (7) Type 1 diabetes mellitus with hyperglycemia: Code(s): E10.65 - Type 1 diabetes mellitus with hyperglycemia Status: Chronic Assessment and Plan: Patient with elevated glucose on admission. This was not treated in the emergency room and she was fed resulting down to glucose of 450. BHO normal and anion gap 3 so do not feel she is in DKA. Will start AccuCheks covering with sliding scale. Hypoglycemia protocol will be available as needed. Resume home insulin regimen. Check A1c. (8) DVT prophylaxis: Code(s): Z29.9 - Encounter for prophylactic measures, unspecified Status: Acute Assessment and Plan: Lovenox (9) Anemia: Code(s): D64.9 - Anemia, unspecified Status: Acute Assessment and Plan: Etiology unclear. No obvious evidence of acute
[2020-08-25 09:04] LABS: Ammonia 15 umol/L (9-30)
[2020-08-25 09:14] LABS: NT Pro B Type Natriuretic Pept 11100 PG/ML (5-100)
[2020-08-25 09:22] LABS: Troponin I 0.098 ng/mL (0.000-0.034)
[2020-08-25 09:50] LABS: D Dimer 2.71 ug/mL (<0.48)
--- NOTE | 2020-08-25 10:03 | PCPTNOTE ---
Attempted therapy session at 09:30. Per RN hold therapy this date. RN stated Pt possibly had a stroke overnight and will not tolerate therapy. Tests are being run. Will continue per POC.
--- NOTE | 2020-08-25 10:38 | ECG_ITS ---
Measurements Intervals [place] Rate: 100 P: [place]: 0 QRS: 10 QRSD: 93 T: 14 QT: 324 QTc: 418 Interpretive Statements ATRIAL FIBRILLATION WITH RAPID VENTRICULAR RESPONSE BORDERLINE T WAVE ABNORMALITY- INFERIOR LEADS ABNORMAL ECG Electronically Signed On 08-25-2020 11:35:08 MODULAR HOME CREW MEMBER by Greg Barr D.O.
[2020-08-25 11:31] LABS: Glucose Point of Care 68 (65-105)
--- NOTE | 2020-08-25 11:46 | PCOTNOTE ---
RN stated to hold treatment this date due to pt. change in medical status over night.
[2020-08-25 12:54] LABS: Influenza Control Positive
[2020-08-25] MEDS: DEXTROSE 50% 25 GM/50 ML SYRINGE IV PUSH (13:06)
--- NOTE | 2020-08-25 13:09 | PM.CNPUL ---
Assessment and Plan Assessment and plan (1) Acute on chronic respiratory failure: Code(s): J96.20 - Acute and chronic respiratory failure, unspecified whether with hypoxia or hypercapnia Status: Acute Assessment and Plan: Patient with acute on chronic hypoxemic and hypercarbic respiratory failure. she carries a diagnosis of COPD in the chart but her chart also states that she is a never smoker. Of note there is no bullous emphysematous changes on her CT angiogram of the chest from 06/23/2020. Patient's baseline ABG on 07/02/2020 was 7.39/55/49 and patient wears 2 L nasal cannula at the care home. Patient presented with a blood gas of 7.23/61/92 on 2 L nasal cannula and at that time was alert and following commands. Patient had 2 additional blood gases with acute on chronic hypercarbic respiratory failure with a relatively normal mental status. Patient refused to wear BiPAP this admission and the last admission on 07/02/2020. Etiology of acute on chronic hypercarbic and hypoxic respiratory failure now include fluid overload, healthcare associated pneumonia, PE, viral infection (Flu negative, awaiting COVID test). She continues to fight with staff and will not wear BiPAP and is now requiring restartints for her altered mentals status. Agree with aggressive diuresis at this time. I will add vancomycin to Levaquin for the possibility of a healthcare associated pneumonia. D Dimer is positive at 2.71. I will obtain CT angiogram to exclude PE. I will obtain upper and lower extremity Dopplers to exclude DVT. Will place patient in respiratory isolation until COVID test is completed. Regarding her current altered mental status I doubt that this is due to her hypercarbia as she had 3 blood gases with the same level of heart hypercarbia that she has currently with a relatively normal mental status. I discussed this with Dr. Stearns. Neurology has been consulted. Will follow with you. History of Present Illness History of Present Illness Consult date: 08/25/20 Requesting physician: Kody Stearns MD Reason for consult: hypoxemia Chief complaint: atrial fib with rvr, chf, hyperglycemia, Narrative: This is a new patient consult for hypercarbic and hypoxic respiratory failure. This is a 79-year-old female with a history of diastolic congestive heart failure, Afib (not anticoagulated for bleeding venuos ulcers), chronic respiratory failure on 2 l NC at care home with an admission 07/02/20 for chronic hypercarbic respiratory failure with ABG 7.39/55/49 who refused to wear BiPAP during that admission. Who presented to ED on 08/23 with hypoxia and hypercarbic respiratory failure with ABG 7.23/61/92 on 2 [place] [address] [place] CXR consistent with fluid overload vs pneumonia. Patient treated with IV lasix, levaquin, and attempted BiPAP but she refused. On 08/24 at 21:00 patient had acute change in mental status with delerium but nonfocal motor exam and CT head negative and ABG 7.29/56/64. I was consulted on 08/25. Patient in bed does not answer questions correctly, perseverates, on 2 L NC oxygen with saturations 96%. Diuresed 990 since admission. Cultures negative, Flu swab negative. COVID test pending. Review of Systems Review of Systems: Narrative: unable to obtain [facility] Past Medical History Medical History (Updated 08/23/20 @ 19:45 by Saúl Dc MD) Asthma with COPD Chronic heart failure with preserved ejection fraction Chronic respiratory failure Contraindication to anticoagulation therapy Coronary artery disease involving [place] coronary artery of [place] heart without angina pectoris Dyslipidemia GERD (gastroesophageal reflux disease) H/O gastric ulcer History of ST elevation myocardial infarction Hypothyroidism Paroxysmal A-fib Pulmonary hypertension Recurrent falls Type 1 diabetes mellitus with hyperglycemia Venous stasis Surgical History Surgical History (Reviewed 08/23/20 @ 14
[2020-08-25] MEDS: levoFLOXacin 500 MG/D5W 100 ML 500 MG/100 ML BAG 100 MG IVPB (13:23)
[2020-08-25] MEDS: DEXTROSE 5%/0.45% SOD CHL 1,000 ML 40 ML IV CONT (13:24)
[2020-08-25 13:56] LABS: Glucose Point of Care 147 (65-105)
--- NOTE | 2020-08-25 14:56 | WPDNEURCNPN ---
Assessment and Plan Assessment and plan (1) Atrial fibrillation with rapid ventricular response: Code(s): I48.91 - Unspecified atrial fibrillation Status: Acute (2) Gait instability: Code(s): R26.81 - Unsteadiness on feet Status: Acute Additional Plan nonfocal neurological examination with negative CT scan of the head and further evaluations being carried a Consult date: 08/25/20 Time Seen: 13:00 HPI: Rina Latif is a 79 year old female admitted to the hospital through the emergency room with the possibility of hypoxia and possible congestive heart failure patient had been seen in the emergency room on June 23, 2020 subsequent to fall when she was found to have lower extremity edema as well in addition she was in atrial fibrillation but it was subsequently documented that she has chronic paroxysmal atrial fibrillation and was not taking the correct dose of Coreg she has been unable to handle anticoagulation because of the venous ulcers resulting in the bleeding for this new diagnosis of congestive heart failure she was did treated with diuresis she was also seen by the fisheries technician and was to be arranged for home BiPAP but she was refusing BiPAP while hospitalized, she has ongoing history of bronchial asthma with COPD chronic heart failure, chronic respiratory failure coronary artery disease content occasion to anticoagulation therapy even though she has paroxysmal atrial fibrillation and history of recurrent fall, pertinent investigations include a Doppler venous study with partial thrombosis of left cephalic when just above the antecubital fossa rest of the veins were patent, BNP of 11,100, COVID pending, all the cultures are pending, medications reviewed she is on [id number] mg piggyback Q 24 hours. Review of Systems Review of Systems: All systems reviewed & are unremarkable except as noted in HPI and below PMFSH Past Medical History Medical History Asthma with COPD Chronic heart failure with preserved ejection fraction Chronic respiratory failure Contraindication to anticoagulation therapy Coronary artery disease involving [place] coronary artery of [place] heart without angina pectoris Dyslipidemia GERD (gastroesophageal reflux disease) H/O gastric ulcer History of ST elevation myocardial infarction Hypothyroidism Paroxysmal A-fib Pulmonary hypertension Recurrent falls Type 1 diabetes mellitus with hyperglycemia Venous stasis Surgical History Surgical History History of heart artery stent X2 History of loop recorder S/P laparoscopic-assisted sigmoidectomy Status post partial thyroidectomy Family History Family History Mother Family history of diabetes mellitus in first degree relative Other Diabetes mellitus Social History Social History (Updated 08/23/20 @ 19:13 by Saúl Dc MD) Social History: The patient lives with her significant, Honorio alonso for over 30 some years. She has no children. She is retired from being a speech therapist. She is an only child. She states that she does not have any durable power estate attorney for healthcare. Patient is a full code. The patient denies any tobacco or drug use. She was exposed to 2nd hand smoke. She drinks 4 drinks/week on average. Smoking status: Never smoker Second hand tobacco smoke exposure: Yes Alcohol intake: current Drinks per week: 3 Substance use: never Substance use type: does not use Gender identity (if verbalized by the patient): Female Spiritual care concerns: No Meds Home Medications and Allergies Home Medications Medication Instructions Recorded Confirmed Type albuterol sulfate 90 mcg/actuation 2 puff INHALATION Q4-6H PRN gm 07/29/19 08/23/20 History aerosol inhaler atorvastatin 40 mg tablet 40 mg PO DAILY 07/29/1908/23
[2020-08-25 16:19] LABS: Glucose Point of Care 164 (65-105)
[2020-08-25] MEDS: FUROSEMIDE INJ 40 MG/4 ML VIAL IV PUSH (18:28)
[2020-08-25] MEDS: ASPIRIN 81 MG ENTERIC TABLET PO (18:28)
[2020-08-25 18:55] LABS: Troponin I 0.088 ng/mL (0.000-0.034)
[2020-08-25 20:43] LABS: SARS-CoV-2 RNA PCR Negative
[2020-08-25] MEDS: DOCUSATE SODIUM 100 MG CAPSULE PO (21:40)
[2020-08-25] MEDS: MAGNESIUM OXIDE 200 MG TABLET PO (21:40)
[2020-08-25] MEDS: carvediloL 25 MG TABLET PO (21:40)
[2020-08-25 21:42] LABS: Glucose Point of Care 319 (65-105)
[2020-08-26] VITALS (14 sets, daily range): BP systolic 111–137; BP diastolic 66–86; PULSE 92–118; RESP 12–20; TEMP 36.4–36.7; O2SAT 93–99
[2020-08-26 05:11] LABS: Hematocrit 31.9 % (37.0-47.0); Hemoglobin 9.5 g/dL (12.0-15.0); Mean Corpuscular HGB Conc 29.8 g/dl (32-36); Mean Corpuscular Hemoglobin 25.5 pg (26-34); Mean Corpuscular Volume 85.5 fl (80-100); Mean Platelet Volume 9.5 fl (7.4-10.4); Platelet Count Result 270 k/mm3 (150-375); Red Blood Count 3.73 M/mm3 (4.2-5.4); Red Cell Distribution Width 13.7 % (11.5-14.5); White Blood Count 4.2 K/mm3 (4.5-10.0)
[2020-08-26 05:21] LABS: Alanine Aminotransferase 16 U/L (4-35); Albumin Level 2.9 g/dL (3.5-5.1); Alkaline Phosphatase 118 U/L (38-126); Anion Gap 3 mmol/L (8-16); Aspartate Amino Transferase 19 U/L (14-36); Bilirubin,Total 0.6 mg/dL (0.2-1.3); Blood Urea Nitrogen 34 mg/dL (7-17); Calcium 9.1 mg/dL (8.4-10.2); Carbon Dioxide 37 mmol/L (22-30); Chloride 92 mmol/L (98-107); Estimated CRCL calculation 36 ml/min; Estimated Glomerular Filt Rate 48; Glucose 421 mg/dL (65-105); Potassium 4.5 mmol/L (3.4-5.0); Sodium 132 mmol/L (137-145)
--- NOTE | 2020-08-26 06:00 | ECG_ITS ---
Measurements Intervals [place] Rate: 105 P: [place]: 0 QRS: -46 QRSD: 94 T: 55 QT: 343 QTc: 455 Interpretive Statements ATRIAL FIBRILLATION WITH RAPID VENTRICULAR RESPONSE LEFT ANTERIOR FASCICULAR BLOCK BASELINE ARTIFACT- I, III, V2 ABNORMAL ECG Electronically Signed On 08-26-2020 11:05:40 SLOTTER OPERATOR HELPER by Greg Barr D.O.
[2020-08-26 06:32] LABS: Troponin I 0.069 ng/mL (0.000-0.034)
[2020-08-26 08:31] LABS: Glucose Point of Care 447 (65-105)
--- NOTE | 2020-08-26 09:57 | PCPTNOTE ---
Attempted PT treatment/re-assess this AM, patient at CT for possible PE will check back later.
[2020-08-26] MEDS: FUROSEMIDE INJ 40 MG/4 ML VIAL IV PUSH ×2 (10:47→16:13)
[2020-08-26 10:53] LABS: Glucose Point of Care 412 (65-105)
--- NOTE | 2020-08-26 10:58 | PM.IMPN ---
Progress Note: A&P Assessment and Plan (1) Pulmonary embolism: Code(s): I26.99 - Other pulmonary embolism without acute cor pulmonale Status: Acute Assessment and Plan: Patietn with a left apical subsegmental pulmonary embolism. Low clot burden. She has also a superficail venothrombus in the lleft cephalic vein which could be the source. LE doppler negative for DVT. Discussed with pulmonary. No plans for anticoagulation at this time given her underlying risks, recent mental status changes concerning for CVA, and worsening pericardial effusion. Agree with this assessment. Also discussed with [facility]. COntinue to monitor in IMU. Remains on 2L O2. (2) Altered mental status: Code(s): R41.82 - Altered mental status, unspecified Status: Acute Assessment and Plan: Patient is alert but confused. Etilogy uncleared but consider CVA. Initial CT brain okay so this was repeated and also showing no acute changes. Does not exclude CVA. B12/Folate/TSH/Ammonia normal. Neurology following. Speech therapy to see. NPO. IV fluids while NPO. (3) Pericardial effusion: Code(s): I31.3 - Pericardial effusion (noninflammatory) Status: Acute Assessment and Plan: CT chest showing cardiomegaly with progression to now moderate-sized pericardial effusion when compared to CT 06/23/20. Discussed with Cardiology. Echo being considered. (4) Acute on chronic respiratory failure: Code(s): J96.20 - Acute and chronic respiratory failure, unspecified whether with hypoxia or hypercapnia Status: Acute Assessment and Plan: Patient hypoxic at the PCPs office. She wears O2 2L at home but intermittently. In the ED, she is noted to be mostly hypercapneic and only mildly hypoxic. Home BiPAP was being arrranged last admission but was refusing BiPAP. No Apnea link found in the chart. She may be using too much O2 at home resulting in the CO2 retention. Probably a component of metabolic acidosis as well; CHARLES related? ABG yesterday morning showing 7.30/64/87 on 3L. Not tolerating BiPAP. Appreciated pulmonary input. Discussed. CT chest as above. (5) Elevated troponin: Code(s): R77.8 - Other specified abnormalities of plasma proteins Status: Acute Assessment and Plan: Troponin elevated to 0.178. EKG reviewed and showing AFib/RVR but no obvious evidence of ischemic changes. Troponin elevated but flat and probably Type II UT related to the AFib/RVR, respiratory failure, CHF exacerbation and CHARLES. Cardiology following. (6) Congestive heart failure: Code(s): I50.9 - Heart failure, unspecified Status: Acute Assessment and Plan: Echo on 06/24/20 showing EF of 65-70% with indeterminate diastolic function. She had moderate to severe tricuspid regurgitation and mild pulmonary hypertension. Remains on IV diuretics. Monitor renal function and UOP. Daily weights. Change to oral Lasix when eating. (7) Paroxysmal A-fib: Code(s): I48.0 - Paroxysmal atrial fibrillation Status: Chronic Assessment and Plan: Patient with paroxysmal atrial fibrillation which is chronic. [id number] 5. She is on Coreg 25 mg twice a day which has controlled her rate the past. There may be an issue of medication non compliance. Discussed with Cardiology - patient is also fall risk and overall risk for anti-coagulation outweighs the benefit for pAFib. APpreciate cardiology input. (8) CHARLES (acute kidney injury): Code(s): N17.9 - Acute kidney failure, unspecified Status: Acute Assessment and Plan: Creatinine 1.3 on admission. Over diuresis seems less likely given physical findings. Suspect more likely this is related to poor diastolic compliance and decreased forward flow. Creatinine inccreased to 1.6 before trending down to 1.1 today. Monitor renal function closely. (9) Hypomagnesemia: Code(s): E
[2020-08-26 11:24] LABS: Glucose Point of Care 423 (65-105)
--- NOTE | 2020-08-26 11:31 | PM.CNCAR ---
Assessment and Plan Assessment and plan (1) Paroxysmal atrial fibrillation with RVR: Code(s): I48.0 - Paroxysmal atrial fibrillation Status: Acute Assessment and Plan: Intermittent with RVR up to the 120s. Patient has not been an anticoagulation candidate due to frequent falls, recurrent bleeding secondary to venous stasis ulcers. Now with small pulmonary embolism with low clot burden, superficial cephalic vein thrombosis, negative lower extremity DVT. Due to altered mental status anticoagulation considerations on hold 68 minutes spent with the care of this patient including at bedside and chart review. (2) Acute on chronic respiratory failure: Code(s): J96.20 - Acute and chronic respiratory failure, unspecified whether with hypoxia or hypercapnia Status: Acute Assessment and Plan: History of acute on chronic hypercarbic and hypoxic respiratory failure multifactorial etiologies with small pulmonary embolism, CHF, COPD, possible underlying pneumonia. Vancomycin added to levofloxacin possible healthcare associated pneumonia a pulmonology. Continue O2 supplementation, she has previously refused BiPAP. Diuresis as tolerated 40 mg IV b.i.d.. (3) Altered mental status: Code(s): R41.82 - Altered mental status, unspecified Status: Acute Assessment and Plan: Highly concerning intermittent altered mental status. CT head x2 negative for acute embolic event and/or bleed. Clinical picture nonetheless concerning for stroke. Unable to obtain MRI due to loop recorder implantation. Patient has multiple comorbidities and guarded prognosis. (4) Pulmonary embolism: Code(s): I26.99 - Other pulmonary embolism without acute cor pulmonale Status: Acute Assessment and Plan: Isolated left apical subsegmental embolism with Small clot burden. (5) Pericardial effusion: Code(s): I31.3 - Pericardial effusion (noninflammatory) Status: Acute Assessment and Plan: Previously small, moderate on CT scan increased since June 2020. Repeat 2D echocardiogram. (6) Coronary artery disease involving venetie ira coronary artery of venetie ira heart: Code(s): I25.10 - Atherosclerotic heart disease of venetie ira coronary artery without angina pectoris Status: Acute Assessment and Plan: Conservative medical management. Continue statin, beta-perez, clopidogrel Mild troponin elevation of presentation fairly flat multifactorial acute hypoxic respiratory failure, atrial fibrillation with rapid ventricular response, underlying CAD, acute on chronic renal insufficiency unlikely acute coronary syndrome. (7) Type 1 diabetes mellitus with hyperglycemia: Code(s): E10.65 - Type 1 diabetes mellitus with hyperglycemia Status: Chronic Assessment and Plan: Per primary service. (8) CHARLES (acute kidney injury): Code(s): N17.9 - Acute kidney failure, unspecified Status: Acute Assessment and Plan: Improving. Continue to monitor. (9) Contraindication to anticoagulation therapy: Code(s): Z53.09 - Procedure and treatment not carried out because of other contraindication Status: Inactive Assessment and Plan: As above. (10) Recurrent falls: Code(s): R29.6 - Repeated falls Status: Inactive Assessment and Plan: History of recurrent falls. History of Present Illness History of Present Illness Consult date/time: Date of service: 08/26/20 11:31 Cardiology consultation at the request of Dr. Stearns for my opinion regarding atrial fibrillation, elevated troponin Requesting physician: Kody Stearns MD Consult reason: atrial fibrillation Reason For Visit: atrial fib with rvr, chf, hyperglycemia, Narrative: Patient is a very complicated 79-year-old female well known to me whom I follow as an outpatient with a past medical history significant diastolic heart failure, chronic respiratory failure, paroxysmal atrial fi
--- NOTE | 2020-08-26 12:37 | PM.PNPUL ---
Progress Note: A&P Assessment and Plan (1) Acute on chronic respiratory failure: Code(s): J96.20 - Acute and chronic respiratory failure, unspecified whether with hypoxia or hypercapnia Status: Acute Assessment and Plan: 08/25 Patient with acute on chronic hypoxemic and hypercarbic respiratory failure. She carries a diagnosis of COPD and her CT scan demonstrates mild to moderate centrilobular emphysema. Patient's baseline ABG on 07/02/2020 was 7.39/55/49 and she refused BiPAP at that time. Patient wears 2 L nasal cannula at the half-way. Patient presented with a blood gas of 7.23/61/92 on 2 L nasal cannula and at that time was alert and following commands. Repeat ABG 2 hours later 7.25/48/92 listed as room air. Repeat ABG 15 hours later 08/24 05:31 on 1 L NC was 7.24/67/70 and she was talking and following commands. Refused BiPAP now. Etiology of acute on chronic hypercarbic and hypoxic respiratory failure now includes COPD, fluid overload, healthcare associated pneumonia, PE, viral infection (Flu negative, COVID negativetest). She continues to fight with staff and will not wear BiPAP and is now requiring restraints for her altered mentals status. Agree with aggressive diuresis at this time. I will add vancomycin to Levaquin for the possibility of a healthcare associated pneumonia. D Dimer is positive at 2.71. I will obtain CT angiogram to exclude PE. Lower extremity dopplers negative and upper with left cephalic thrombus. 08/[address] angiogram performed this morning with left apical subsegmental PE, larger pericardial effusion from small on 06/23/20 to moderate now, small to moderate bilateral pleural effusions, mild to moderate centrilobular emphysema. In my opinion patient is not an anticoagulation risk because of her altered mental status which may be from an acute embolic stroke and her enlarging pericardial effusion. Neurology and cardiology consulted. Agree with vanco and levwaldemaruin for possible NH aquired pneumonia. Diureses per primary team. Regarding her current altered mental status I doubt that this is due to her hypercarbia as she had 3 blood gases with the same level of hypercarbia that she has currently with a relatively normal mental status. I discussed this with Dr. Dc. Will follow with you. Subjective Date/time seen: 08/26/20 12:37 Interval history: Narrative: This is a new patient consult for hypercarbic and hypoxic respiratory failure. This is a 79-year-old female with a history of diastolic congestive heart failure, Afib (not anticoagulated for bleeding venous ulcers), chronic respiratory failure on 2 l NC at half-way with an admission 07/02/20 for chronic hypercarbic respiratory failure with ABG 7.39/55/49 who refused to wear BiPAP during that admission. Patient presented to ED on 08/23 with hypoxia and hypercarbic respiratory failure with ABG 7.23/61/92 on 2 L [place] [address] and CXR consistent with fluid overload vs pneumonia. Patient treated with IV lasix, levaquin, and attempted BiPAP but she refused. She was talking and following commands at that time. Repeat ABG 2 hours later 7.25/48/92 listed as room air. Repeat ABG 15 hours later 08/24 05:31 on 1 L NC was 7.24/67/70 and she was talking and following commands. On 08/24 at 21:00 patient had acute change in mental status with delerium, not talking or following commands with random nonfocal motor exam and CT head negative and ABG 7.29/56/64. I was consulted on 08/25. 08/25 Patient in bed does not answer questions correctly, perseverates, on 2 L NC oxygen with saturations 96%. Diuresed 990 since admission. Cultures negative, Flu swab negative. COVID test pending. D Dimer 2.[address] angiogram ordered. 08/26 Patient remains lethargic, not following commands with saturations 100% on 2 L. COVID negative and CT angiogram perfomred this morning with left apical subsegmental PE, larger pericardial effusion from smal
[2020-08-26] MEDS: INSULIN ASPART (*BKC) 100 UNITS/ML SUB-Q ×2 (12:53→18:44)
[2020-08-26] MEDS: levoFLOXacin 250 MG/D5W 50 ML 250 MG/50 ML BAG 50 MG IVPB (12:55)
--- NOTE | 2020-08-26 13:35 | PCSTNOTE ---
Please refer to the Bedside Swallow Evaluation in the EMR. Please note, silent aspiration cannot be ruled out at bedside.
--- NOTE | 2020-08-26 13:41 | PCOTNOTE ---
Frequency updated to 2-3 days per week due to increased confusion.
--- NOTE | 2020-08-26 14:09 | PCPTNOTE ---
Attempted PT treatment this PM, patient unable to follow instruction for exercise, A&Ox0 at this time. Patient frequency will be changed to 2-3 times per week until patient is able to participate.
--- NOTE | 2020-08-26 15:01 | PCOTNOTE ---
Patient OT frequency reduced to 2-3x/wk due to patient confusion and decreased participation.
[2020-08-26] MEDS: SODIUM CHLORIDE 0.9% IV 1,000 ML 70 ML IV CONT (16:10)
[2020-08-26] MEDS: INSULIN DETEMIR 100 UNITS/ML 8 UNITS SUB-Q (16:32)
[2020-08-26 16:43] LABS: Glucose Point of Care 318 (65-105)
[2020-08-26 17:25] LABS: Amphetamine Screen Urine Negative (Negative); Barbiturate Screen Urine Negative (Negative); Benzodiazepines Screen Urine Negative (Negative); Cannabinoid Screen Urine Negative (Negative); Cocaine Screen Urine Negative (Negative); Methadone Screen Urine Negative (Negative); Opiate Screen Urine Negative (Negative); Phencyclidine Screen Urine Negative (Negative)
[2020-08-26 18:32] LABS: Glucose Point of Care 376 (65-105)
[2020-08-26] MEDS: SILVERGEL (ELTA) 45 ML 1 APPLIC TOPICAL (22:30)
[2020-08-26 23:05] LABS: Glucose Point of Care 206 (65-105)
[2020-08-27] VITALS (18 sets, daily range): BP systolic 112–125; BP diastolic 62–86; PULSE 81–125; RESP 12–18; TEMP 36.2–37; O2SAT 78–99
--- NOTE | 2020-08-27 | ECHO_ITS ---
Patient Info Name: Rina Latif Age: 79 years : 1940 Gender: Female Ht: 67 in Wt: 147 lbs BSA: 1.78 m2 HR: 106 bpm BP: 112 / 69 mmHg Heart Rhythm: Atrial Fibrillation Technical Quality: Good Exam Date: 08/27/2020 8:27 AM Exam Location: [facility] Pul[facility] Patient Status: Inpatient Admit Date: 08/23/2020 Staff Ordering Physician: Lizandro Herrera MD Hip [employer] Per[employer]ers: Wes Tyler RDCS, RT Attending Provider: Saúl Dc MD Referring Physician: Javier OCAMPO; Exam Type: CA echo doppler color flow Study Info Indications - pericardial effusion afib Complete two-dimensional, color flow and Doppler transthoracic echocardiogram is performed. Summary 1. Complete two-dimensional, color flow and Doppler transthoracic echocardiogram is performed. 2. There is no aortic valve stenosis with a peak velocity of 120 cm/s, mean gradient of 3 mmHg, and aortic valve area of 2.1 cm2. 3. Left ventricular systolic function is normal, estimated at 65-70%. 4. There is mildly increased left ventricular wall thickness. 5. There is moderate tricuspid valve regurgitation. 6. Mild pulmonary hypertension, estimated pulmonary arterial systolic pressure is 44 mmHg. 7. There is a moderate circumferential pericardial effusion up to 1.4cm without evidence of tamponade physiology. Left Ventricle Left ventricular chamber dimension is normal. Left ventricular systolic function is normal, estimated at 65-70%. There is mildly increased left ventricular wall thickness. The left ventricular diastolic function is indeterminate. Global longitudinal strain is moderately elevated at -8 %. Right Ventricle Right ventricular chamber dimension is normal. Right ventricular systolic function is normal. Left Atria Left atrial chamber dimension is normal. Right Atria Right atrial chamber dimension is mildly enlarged. Aortic Valve There is no aortic valve stenosis with a peak velocity of 120 cm/s, mean gradient of 3 mmHg, and aortic valve area of 2.1 cm2. The aortic valve is probable trileaflet. There is mild aortic valve sclerosis. There is no aortic valve regurgitation. Pulmonic Valve The pulmonic valve is not well visualized. There is mild pulmonic regurgitation. Mitral Valve The mitral valve has thickened leaflets and calcified leaflets. There is mild mitral valve regurgitation. The mitral valve annulus is severely calcified. Tricuspid Valve The tricuspid valve leaflets are normal. There is moderate tricuspid valve regurgitation. Mild pulmonary hypertension, estimated pulmonary arterial systolic pressure is 44 mmHg. Pericardium/Pleural The pericardium appears normal. There is a moderate circumferential pericardial effusion up to 1.4cm without evidence of tamponade physiology. Inferior Vena Cava Normal inferior vena cava with >50% collapse upon inspiration consistent with normal right atrial pressure, 5 mmHg. Aorta The aortic root size at the sinus of Valsalva is normal. There is mild aortic atherosclerosis. Left Ventricular Outflow Tract Name Value Normal LVOT 2D LVOT Diameter 2.0 cm LVOT Doppler L
[2020-08-27 01:31] LABS: Glucose Point of Care 186 (65-105)
[2020-08-27 05:17] LABS: Basophils Percent Auto 0.4 % (0.2-1.2); Eosinophils Absolute Auto 0.1 K/mm3 (0-0.3); Eosinophils Percent Auto 2.5 % (0-4.4); Hematocrit 35.3 % (37.0-47.0); Hemoglobin 10.5 g/dL (12.0-15.0); Immature Granulocyte Absolute 0.01 K/mm3 (0.00-0.031); Immature Granulocyte Percent A 0.2 % (0-0.5); Lymphocytes Absolute Auto 1.02 K/mm3 (0.9-3.2); Lymphocytes Percent Auto 18.5 % (18.3-44.2); Mean Corpuscular HGB Conc 29.7 g/dl (32-36); Mean Corpuscular Hemoglobin 24.6 pg (26-34); Mean Corpuscular Volume 82.7 fl (80-100); Mean Platelet Volume 9.1 fl (7.4-10.4); Monocytes Absolute Auto 0.7 K/mm3 (0.1-0.6); Monocytes Percent Auto 12.1 % (2.6-8.5); Neutrophils Absolute Auto 3.7 K/mm3 (1.3-6.7); Neutrophils Percent Auto 66.3 % (45.5-73.1); Platelet Count Result 292 k/mm3 (150-375); Red Blood Count 4.27 M/mm3 (4.2-5.4); Red Cell Distribution Width 13.8 % (11.5-14.5); White Blood Count 5.5 K/mm3 (4.5-10.0)
[2020-08-27 05:39] LABS: Alanine Aminotransferase 15 U/L (4-35); Alkaline Phosphatase 114 U/L (38-126); Aspartate Amino Transferase 19 U/L (14-36); Bilirubin,Total 0.4 mg/dL (0.2-1.3); Blood Urea Nitrogen 31 mg/dL (7-17); Calcium 8.9 mg/dL (8.4-10.2); Carbon Dioxide > 40 mmol/L (22-30); Chloride 90 mmol/L (98-107); Estimated CRCL calculation 34 ml/min; Estimated Glomerular Filt Rate 43; Glucose 156 mg/dL (65-105); Magnesium 1.5 mg/dL (1.6-2.3); Sodium 136 mmol/L (137-145)
[2020-08-27 05:57] LABS: Hypochromasia 1+ (NORMAL); Ovalocytes 1+ (NORMAL); Platelet Estimate Adequate (Adequate)
[2020-08-27] MEDS: SODIUM CHLORIDE 0.9% IV 1,000 ML 70 ML IV CONT (06:24)
[2020-08-27 08:56] LABS: Glucose Point of Care 141 (65-105)
--- NOTE | 2020-08-27 09:16 | P.CDI_ITS ---
CDI Query Clarification Request -Pt admitted 08/23 -CTA done 08/26 impression development of left apical subsegmental PE -PE documented 08/26 Please clarify if pulmonary embolism was: * Present on admission * Not present on admission * Unable to determine
--- NOTE | 2020-08-27 09:16 | WPDCDIQUERY2 ---
CDI Query Clarification Request -Pt admitted 08/23 -CTA done 08/26 impression development of left apical subsegmental PE -PE documented 08/26 Please clarify if pulmonary embolism was: Present on admission Not present on admission Unable to determine
--- NOTE | 2020-08-27 09:25 | PM.PNPUL ---
Progress Note: A&P Assessment and Plan (1) Acute on chronic respiratory failure: Code(s): J96.20 - Acute and chronic respiratory failure, unspecified whether with hypoxia or hypercapnia Status: Acute Assessment and Plan: 08/25 Patient with acute on chronic hypoxemic and hypercarbic respiratory failure. She carries a diagnosis of COPD and her CT scan demonstrates mild to moderate centrilobular emphysema. Patient's baseline ABG on 07/02/2020 was 7.39/55/49 and she refused BiPAP at that time. Patient wears 2 L nasal cannula at the alf. Patient required noninvasive ventilation for chronic hypercarbia from COPD to prevent future hospitalizations. Patient presented with a blood gas of 7.23/61/92 on 2 L nasal cannula and at that time was alert and following commands. Repeat ABG 2 hours later 7.25/48/92 listed as room air. Repeat ABG 15 hours later 08/24 05:31 on 1 L NC was 7.24/67/70 and she was talking and following commands. Refused BiPAP now. Etiology of acute on chronic hypercarbic and hypoxic respiratory failure now includes COPD, fluid overload, healthcare associated pneumonia, PE, viral infection (Flu negative, COVID negativetest). She continues to fight with staff and will not wear BiPAP and is now requiring restraints for her altered mentals status. Agree with aggressive diuresis at this time. I will add vancomycin to Levaquin for the possibility of a healthcare associated pneumonia. D Dimer is positive at 2.71. I will obtain CT angiogram to exclude PE. Lower extremity dopplers negative and upper with left cephalic thrombus. 08/[address] angiogram performed this morning with left apical subsegmental PE, larger pericardial effusion from small on 06/23/20 to moderate now, small to moderate bilateral pleural effusions, mild to moderate centrilobular emphysema. In my opinion patient is not an anticoagulation risk because of her altered mental status which may be from an acute embolic stroke and her enlarging pericardial effusion. Neurology and cardiology consulted. Agree with vanco and pop for possible NH aquired pneumonia. Diureses per primary team. Regarding her current altered mental status I doubt that this is due to her hypercarbia as she had 3 blood gases with the same level of hypercarbia that she has currently with a relatively normal mental status. I discussed this with Dr. Dc. 08/27 No distress with sats 96% on RA. She did wear AutoPAP with VAuto mode, EPAP5, Inspire max 15, PSV 5 for 2 hours last night. If she agrees to noninvasive ventilation tonight I will place on AVAPS AE with rate 12, TV 400, EPAP 5, Min inspire 6, max inspire 20, 30% FIO2. ABG in morning if she wears noninvasive. Continue symbicort 80/4.5 2 puffs BID, no wheezes. Continue vanoc and levaquin for possible pneumonia (total antibiotics 7 days). Will follow with you. Subjective Date/time seen: 08/27/20 09:25 Interval history: Narrative: This is a new patient consult for hypercarbic and hypoxic respiratory failure. This is a 79-year-old female with a history of diastolic congestive heart failure, Afib (not anticoagulated for bleeding venous ulcers), chronic respiratory failure on 2 l NC at alf with an admission 07/02/20 for chronic hypercarbic respiratory failure with ABG 7.39/55/49 who refused to wear BiPAP during that admission. Patient presented to ED on 08/23 with hypoxia and hypercarbic respiratory failure with ABG 7.23/61/92 on 2 L NC[place] [address] and CXR consistent with fluid overload vs pneumonia. Patient treated with IV lasix, levaquin, and attempted BiPAP but she refused. She was talking and following commands at that time. Repeat ABG 2 hours later 7.25/48/92 listed as room air. Repeat ABG 15 hours later 08/24 05:31 on 1 L NC was 7.24/67/70 and she was talking and following commands. On 08/24 at 21:00 patient had acute change in mental status with delerium, not talking or f
[2020-08-27] MEDS: INSULIN GLARGINE (*BKC) 100 UNITS/ML 15 UNITS SUB-Q (09:56)
[2020-08-27] MEDS: IRON SUCROSE COMPLEX 100 MG in SODIUM CHLORIDE 0.9% IV 50 ML 220 MG IVPB (09:56)
[2020-08-27] MEDS: FUROSEMIDE INJ 40 MG/4 ML VIAL IV PUSH (09:58)
[2020-08-27] MEDS: PANTOPRAZOLE SOD SESQUIHYDRATE 20 MG TAB PO (10:12)
[2020-08-27] MEDS: carvediloL 25 MG TABLET PO ×2 (10:38→20:25)
[2020-08-27] MEDS: MAGNESIUM OXIDE 200 MG TABLET PO ×2 (10:38→20:25)
[2020-08-27] MEDS: CLOPIDOGREL BISULFATE 75 MG TABLET PO (10:38)
[2020-08-27] MEDS: ATORVASTATIN 40 MG TABLET PO (10:39)
--- NOTE | 2020-08-27 11:02 | PM.IMPN ---
Progress Note: A&P Assessment and Plan (1) Pulmonary embolism: Code(s): I26.99 - Other pulmonary embolism without acute cor pulmonale Status: Acute Assessment and Plan: Patietn with a left apical subsegmental pulmonary embolism. Low clot burden. She also has a superficial venothrombus in the left cephalic vein which could be the source. LE doppler negative for DVT. Discussed with pulmonary and cardiology. No plans for anticoagulation at this time given her underlying risks, recent mental status changes concerning for CVA, and worsening pericardial effusion. Continue to monitor in IMU. Remains on 2L O2. (2) Altered mental status: Code(s): R41.82 - Altered mental status, unspecified Status: Acute Assessment and Plan: Patient is alert but confused. Etiology uncleared but consider CVA. Initial CT brain okay so this was repeated and also showing no acute changes. Does not exclude CVA. B12/Folate/TSH/Ammonia normal. Neurology following. Discussed with Speech therapy and diet started. Stop IV fluids. Continue PT/OT. (3) Pericardial effusion: Code(s): I31.3 - Pericardial effusion (noninflammatory) Status: Acute Assessment and Plan: CT chest showing cardiomegaly with progression to now moderate-sized pericardial effusion when compared to CT 06/23/20. Echo today showing moderate circumferential pericardial effusion up to 1.4cm without evidence of tamponade physiology. Cardiology following. (4) Acute on chronic respiratory failure: Code(s): J96.20 - Acute and chronic respiratory failure, unspecified whether with hypoxia or hypercapnia Status: Acute Assessment and Plan: Patient hypoxic at the PCPs office. She wears O2 2L at home but intermittently. In the ED, she is noted to be mostly hypercapneic and only mildly hypoxic. Home BiPAP was being arranged last admission but was refusing BiPAP. No Apnea link found in the chart. She may be using too much O2 at home resulting in the CO2 retention. Probably a component of metabolic acidosis as well; CHARLES related? ABG 08/25 morning showing 7.30/64/87 on 3L. Not tolerating BiPAP (wore for 2hours last night). Appreciated pulmonary input. (5) Elevated troponin: Code(s): R77.8 - Other specified abnormalities of plasma proteins Status: Acute Assessment and Plan: Troponin elevated to 0.178. EKG reviewed and showing AFib/RVR but no obvious evidence of ischemic changes. Troponin elevated but flat and probably Type II ME related to the AFib/RVR, respiratory failure, CHF exacerbation and CHARLES. Cardiology following. (6) Congestive heart failure: Code(s): I50.9 - Heart failure, unspecified Status: Acute Assessment and Plan: Echo on 06/24/20 showing EF of 65-70% with indeterminate diastolic function. She had moderate to severe tricuspid regurgitation and mild pulmonary hypertension. Remains on IV diuretics. Monitor renal function and UOP. Daily weights. Change to oral Lasix when eating. (7) Paroxysmal A-fib: Code(s): I48.0 - Paroxysmal atrial fibrillation Status: Chronic Assessment and Plan: Patient with paroxysmal atrial fibrillation which is chronic. [id number] 5. She is on Coreg 25 mg twice a day which has controlled her rate the past. There may be an issue of medication non compliance. Discussed with Cardiology - patient is also fall risk and overall risk for anti-coagulation outweighs the benefit for pAFib. Appreciate cardiology input. (8) CHARLES (acute kidney injury): Code(s): N17.9 - Acute kidney failure, unspecified Status: Acute Assessment and Plan: Creatinine 1.3 on admission. Over diuresis seems less likely given physical findings. Suspect more likely this is related to poor diastolic compliance and decreased forward flow. Creatinine increased to 1.6 before trending down to 1.1 yesterday. Monito
[2020-08-27 12:18] LABS: Glucose Point of Care 227 (65-105)
[2020-08-27] MEDS: INSULIN ASPART (*BKC) 100 UNITS/ML SUB-Q (12:36)
[2020-08-27] MEDS: levoFLOXacin 250 MG/D5W 50 ML 250 MG/50 ML BAG 50 MG IVPB (12:38)
--- NOTE | 2020-08-27 14:44 | WPDNEUROPN ---
Progress Note: A&P Assessment and Plan (1) Altered mental status: Code(s): R41.82 - Altered mental status, unspecified Status: Acute (2) Paroxysmal A-fib: Code(s): I48.0 - Paroxysmal atrial fibrillation Status: Chronic Additional Plan treatment continues Review of Systems Review of Systems: All systems reviewed & are unremarkable except as noted in HPI and below Exam Const: General: no acute distress and ill appearing Nutritional Appearance: thin Limitations: behavioral limitations and physical limitations Eyes: General: appearance normal, both eyes and all related structures Neck: Neck: full ROM Resp: Effort & Inspection: normal respiratory effort Auscultation: rhonchi Cardio: Rhythm: abnormal rhythm Neuro: General: patient obtunded Gait exam (Neuro): Unable to assess gait Motor exam (neuro): Abnormal motor strength present Sensory Exam: Sensory deficit (Neuro) Deep tendon reflexes (DTR's): Right triceps reflex intensity grade: 1+, Left triceps reflex intensity grade: 1+, Rt Biceps (C5, C6): 1+, Left biceps reflex intensity grade: 1+, Right brachioradialis reflex intensity grade: 1+, Left brachioradialis reflex intensity grade: 1+, Right patellar reflex intensity grade: 1+, Left patellar reflex intensity grade: 1+, Right ankle reflex intensity grade: 1+ and Left ankle reflex intensity grade: 1+ Plantar Reflex Responses: equivocal: bilateral Objective Data Vital Signs Vital Signs: Vital Signs - 24 hr 08/26/20 16:00 08/26/20 18:00 08/26/20 19:00 Temperature 36.6 C 36.7 C Pulse Rate 110 H 104 H 101 H Respiratory Rate 12 18 Blood Pressure 111/74 115/74 Pulse Oximetry 98 98 08/26/20 20:00 08/26/20 22:00 08/26/20 22:25 Temperature Pulse Rate 107 H 113 H Respiratory Rate Blood Pressure 119/66 Pulse Oximetry 99 08/27/20 00:00 08/27/20 02:00 08/27/20 02:55 Temperature 36.9 C Pulse Rate 112 H 104 H Respiratory Rate 16 Blood Pressure 117/62 Pulse Oximetry 99 78 L 08/27/20 03:21 08/27/20 04:00 08/27/20 06:00 Temperature 37.0 C Pulse Rate 107 H 123 H 106 H Respiratory Rate 18 12 Blood Pressure 112/69 Pulse Oximetry 93 95 08/27/20 08:00 08/27/20 08:21 08/27/20 12:00 Temperature 37.0 C 36.7 C Pulse Rate 115 H 125 H Respiratory Rate 16 18 Blood Pressure 125/86 119/74 Pulse Oximetry 94 94 98 Intake/Output Intake/Output: Intake & Output 08/24/20 08/25/20 08/26/20 08/27/20 23:59 23:59 23:59 23:59 Intake Total 1210 712 943 0318 Output Total 1500 1000 Balance -290 250 -400 1025 Meds/Results Medications: Active Medications Generic Name Dose Route Start Last Admin Trade Name Freq PRN Reason Stop Dose Admin Acetaminophen 650 mg 08/23/20 14:39 Acetaminophen 325 Mg Tablet PO Q4H PRN Mild Pain (1-3) Al Hydrox/Mg Hydrox/Simethicone 30 ml 08/23/20 14:39 Mag Hydrox/Al Hydrox/Simeth 30 Ml Udc PO Q6H PRN Indigestion Albuterol 2 puff 08/23/20 19:52 Albuterol Sulfate (*Sp) Aerosol 1 Puff INHALATION Q4-6H PRN Shortness Of Breath Aspirin 81 mg 08/28/20 08:00 Aspirin 81 Mg Chewable Tablet PO DAILY@0800 [facility] Atorvastatin Calcium 40 mg 08/24/20 09:00 08/27/20 10:39 Atorvastatin 40 Mg Tablet PO 40 mg DAILY KVNG Administration Budesonide/Formoterol Fumarate 2 puff 08/24/20 09:00 08/26/20 09:11 Budesonide/Form 80-4.5 Mcg (*Sp) INHALATION 2 puff DAILY KVNG Administration Calcitriol 0.25 mcg 08/25/20 09:00 08/27/20 10:43 Calcitriol 0.25 Mcg Capsule PO Not Given MoWeFr@0900 KVNG Carvedilol 25 mg 08/23/20 21:00 08/27/20 10:38 Carvedilol 25 Mg Tablet PO 25 mg Q12HR KVNG Administration Clopidogrel Bisulfate 75 mg 08/24/20 09:00 08/27/20 10:38 Clopidogrel Bisulfate 75 Mg Tablet PO 75 mg DAILY KVNG Administration Dextrose 12.5 gm 08/23/20 19:46 08/25/20 13:06 Dextrose 50% 25 Gm/50 Ml Syringe IV PUSH 12.5 gm PRN PRN
--- NOTE | 2020-08-27 15:02 | PM.PNCARD ---
Progress Note: A&P Assessment and Plan (1) Paroxysmal atrial fibrillation with RVR: Code(s): I48.0 - Paroxysmal atrial fibrillation Status: Acute Assessment and Plan: Intermittent with RVR up to the 120s. Patient has not been an anticoagulation candidate due to frequent falls, recurrent bleeding secondary to venous stasis ulcers. Now with small pulmonary embolism with low clot burden, superficial cephalic vein thrombosis, negative lower extremity DVT. Due to altered mental status anticoagulation considerations on hold Prognosis guarded. (2) Acute on chronic respiratory failure: Code(s): J96.20 - Acute and chronic respiratory failure, unspecified whether with hypoxia or hypercapnia Status: Acute Assessment and Plan: History of acute on chronic hypercarbic and hypoxic respiratory failure multifactorial etiologies with small pulmonary embolism, CHF, COPD, possible underlying pneumonia. Vancomycin added to levofloxacin possible healthcare associated pneumonia a pulmonology. Continue O2 supplementation, able to tolerate APAP for a while. Diuresis as tolerated 40 mg IV b.i.d.. Clinically, does not appear to be significantly volume overloaded at this time. On IV ABx. Echocardiogram personally review EF for served 65-70% blood mild pulmonary hypertension moderate pericardial effusion up to 1.4 cm no tamponade physiology. Mild mitral and moderate tricuspid regurgitation. No vegetation or mobile echodensities. (3) Altered mental status: Code(s): R41.82 - Altered mental status, unspecified Status: Acute Assessment and Plan: More alert but remains confused. 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 Clinical picture nonetheless concerning for stroke. Unable to obtain MRI due to loop recorder implantation. Patient has multiple comorbidities and guarded prognosis. (4) Pulmonary embolism: Code(s): I26.99 - Other pulmonary embolism without acute cor pulmonale Status: Acute Assessment and Plan: Isolated left apical subsegmental embolism with small clot burden. no anticoagulation. (5) Pericardial effusion: Code(s): I31.3 - Pericardial effusion (noninflammatory) Status: Acute Assessment and Plan: Previously small, moderate on CT scan increased since June 2020. 2D Echo moderate effusion, no tamponade physiology. Incidental, not an acute issue although will monitor clinical status. (6) Coronary artery disease involving [place] coronary artery of [place] heart: Code(s): I25.10 - Atherosclerotic heart disease of [place] coronary artery without angina pectoris Status: Acute Assessment and Plan: Conservative medical management. Continue statin, beta-perez, clopidogrel. ASA added which is fine. Conservative medical management. Mild troponin elevation of presentation fairly flat multifactorial acute hypoxic respiratory failure, atrial fibrillation with rapid ventricular response, underlying CAD, acute on chronic renal insufficiency unlikely acute coronary syndrome. (7) Type 1 diabetes mellitus with hyperglycemia: Code(s): E10.65 - Type 1 diabetes mellitus with hyperglycemia Status: Chronic Assessment and Plan: Per primary service. (8) CHARLES (acute kidney injury): Code(s): N17.9 - Acute kidney failure, unspecified Status: Acute Assessment and Plan: Stable. Continue to monitor. Low magnesium replete. Subjective Date/time seen: Date of service: 08/27/20 15:02 Follow-up for atrial fibrillation, CHF Patient more awake but remains confused. Sitter at bedside. she denied pain or shortness of breath but then would ask when was your pain, how much and what period she would repeat this statement when asked other questions. Patient remained in atrial fibrillation heart rate reasonably controlled tachycardic at times up to the 120s genera
[2020-08-27 17:45] LABS: Glucose Point of Care 131 (65-105)
[2020-08-27 20:11] LABS: Glucose Point of Care 148 (65-105)
[2020-08-27] MEDS: MAGNESIUM SULF 2 GM/WATER 50ML 2 GM/50 ML BAG IVPB (20:26)
[2020-08-27] MEDS: SILVERGEL (ELTA) 45 ML 1 APPLIC TOPICAL (20:26)
[2020-08-28] VITALS (20 sets, daily range): BP systolic 86–118; BP diastolic 42–67; PULSE 89–108; RESP 16–24; TEMP 35.9–36.6; O2SAT 91–100
[2020-08-28 04:08] LABS: Alveolar/Arterial O2 Gradient 65.7 mmHg; Base Excess ABG 20.2 mEq/l (+/-2.0); Fractional Inspired Oxygen 30 %; HCO3 ABG 46.4 mEq/l (22.0-26.0); Oxygen Content ABG 14.5 %vol (16.0-22.0); Oxygen Saturation ABG 95.7 % (95.0-100.0); Oxyhemoglobin 94.7 % THb (90.0-100.0); PO2 ABG 75.8 mmHg (80.0-100.0); PO2 FiO2 Ratio Arterial Blood 2.53 %; Total Hemoglobin 10.8 g/dL (12.0-18.0); pH ABG 7.495 (7.350-7.450)
[2020-08-28 04:10] LABS: Modified Allen's Test Pass; PCO2 ABG 61.6 mmHg (35.0-45.0); Site Drawn LEFT RADIAL
[2020-08-28 04:11] LABS: Non-Invasive Vent Rate 12 /MIN
[2020-08-28 04:12] LABS: Device OTHER DEVICE; Non-Invasive Expiratory Pressure 5 CMH2O
[2020-08-28 04:53] LABS: Hematocrit 33.1 % (37.0-47.0); Hemoglobin 9.8 g/dL (12.0-15.0); Mean Corpuscular HGB Conc 29.6 g/dl (32-36); Mean Corpuscular Hemoglobin 24.7 pg (26-34); Mean Corpuscular Volume 83.6 fl (80-100); Mean Platelet Volume 9.4 fl (7.4-10.4); Platelet Count Result 282 k/mm3 (150-375); Red Blood Count 3.96 M/mm3 (4.2-5.4); Red Cell Distribution Width 13.7 % (11.5-14.5); White Blood Count 4.5 K/mm3 (4.5-10.0)
[2020-08-28 05:16] LABS: Albumin Level 2.8 g/dL (3.5-5.1); Blood Urea Nitrogen 29 mg/dL (7-17); Calcium 8.7 mg/dL (8.4-10.2); Carbon Dioxide > 40 mmol/L (22-30); Chloride 89 mmol/L (98-107); Estimated CRCL calculation 30 ml/min; Estimated Glomerular Filt Rate 40; Glucose 98 mg/dL (65-105); Magnesium 2.3 mg/dL (1.6-2.3); Phosphorus 3.2 mg/dL (2.5-4.5); Potassium 3.6 mmol/L (3.4-5.0); Sodium 136 mmol/L (137-145)
[2020-08-28 07:51] LABS: Glucose Point of Care 116 (65-105)
[2020-08-28] MEDS: IRON SUCROSE COMPLEX 100 MG in SODIUM CHLORIDE 0.9% IV 50 ML 220 MG IVPB (08:19)
[2020-08-28] MEDS: MULTIVIT W/ IRON, MINERALS 15 ML LIQUID (*BKC) PO (08:24)
[2020-08-28] MEDS: FUROSEMIDE INJ 40 MG/4 ML VIAL IV PUSH (08:25)
[2020-08-28] MEDS: INSULIN GLARGINE (*BKC) 100 UNITS/ML 15 UNITS SUB-Q (09:22)
[2020-08-28] MEDS: ASPIRIN 81 MG CHEWABLE TABLET PO (11:27)
[2020-08-28] MEDS: ATORVASTATIN 40 MG TABLET PO (11:27)
[2020-08-28] MEDS: MAGNESIUM OXIDE 200 MG TABLET PO (11:27)
[2020-08-28] MEDS: CLOPIDOGREL BISULFATE 75 MG TABLET PO (11:27)
[2020-08-28 11:47] LABS: Glucose Point of Care 223 (65-105)
--- NOTE | 2020-08-28 12:40 | PM.PNCARD ---
Progress Note: A&P Assessment and Plan (1) Paroxysmal atrial fibrillation with RVR: Code(s): I48.0 - Paroxysmal atrial fibrillation Status: Acute Assessment and Plan: Intermittent with RVR up to the 120s. Patient has not been an anticoagulation candidate due to frequent falls, recurrent bleeding secondary to venous stasis ulcers. Now with small pulmonary embolism with low clot burden, superficial cephalic vein thrombosis, negative lower extremity DVT. Prognosis guarded. patient is not reliably taking oral medications. Continue current medical therapy if she is cooperative. May need to transition to IV beta-perez if she refuses to take oral medications for heart rate control. Will need to monitor closely in this regard. Not an anticoagulation candidate as has been previously documented. (2) Acute on chronic respiratory failure: Code(s): J96.20 - Acute and chronic respiratory failure, unspecified whether with hypoxia or hypercapnia Status: Acute Assessment and Plan: History of acute on chronic hypercarbic and hypoxic respiratory failure multifactorial etiologies with small pulmonary embolism, CHF, COPD, possible underlying pneumonia. Vancomycin added to levofloxacin possible healthcare associated pneumonia a pulmonology. Continue O2 supplementation, able to tolerate APAP for a while. Diuresis as tolerated 40 mg IV b.i.d.. Clinically, does not appear to be significantly volume overloaded at this time. On IV ABx. Echocardiogram EF 65-70% blood mild pulmonary hypertension moderate pericardial effusion up to 1.4 cm no tamponade physiology. Mild mitral and moderate tricuspid regurgitation. No vegetation or mobile echodensities. (3) Altered mental status: Code(s): R41.82 - Altered mental status, unspecified Status: Acute Assessment and Plan: More alert but remains confused. 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 Clinical picture nonetheless concerning for stroke. Unable to obtain MRI due to loop recorder implantation. Patient has multiple comorbidities and guarded prognosis. (4) Pulmonary embolism: Code(s): I26.99 - Other pulmonary embolism without acute cor pulmonale Status: Acute Assessment and Plan: Isolated left apical subsegmental embolism with small clot burden. no anticoagulation. Defer to primary service and pulmonology. (5) Pericardial effusion: Code(s): I31.3 - Pericardial effusion (noninflammatory) Status: Acute Assessment and Plan: Previously small, moderate on CT scan increased since June 2020. 2D Echo moderate effusion, no tamponade physiology. Incidental, not an acute issue although will monitor clinical status. (6) Coronary artery disease involving [place] coronary artery of [place] heart: Code(s): I25.10 - Atherosclerotic heart disease of [place] coronary artery without angina pectoris Status: Acute Assessment and Plan: Conservative medical management. Continue statin, beta-perez, clopidogrel. ASA added which is fine. Conservative medical management. Conservative measure appropriate. Mild troponin elevation of presentation fairly flat multifactorial acute hypoxic respiratory failure, atrial fibrillation with rapid ventricular response, underlying CAD, acute on chronic renal insufficiency unlikely acute coronary syndrome. (7) Type 1 diabetes mellitus with hyperglycemia: Code(s): E10.65 - Type 1 diabetes mellitus with hyperglycemia Status: Chronic Assessment and Plan: Per primary service. (8) CHARLES (acute kidney injury): Code(s): N17.9 - Acute kidney failure, unspecified Status: Acute Assessment and Plan: Stable. Continue to monitor. Low magnesium replete. Subjective Date/time seen: Date of service: 08/28/20 12:40 Follow-up for atrial fibrillation, CHF patient remains confused but
[2020-08-28] MEDS: INSULIN ASPART (*BKC) 100 UNITS/ML SUB-Q (12:50)
[2020-08-28] MEDS: levoFLOXacin 250 MG/D5W 50 ML 250 MG/50 ML BAG 50 MG IVPB (12:55)
--- NOTE | 2020-08-28 13:27 | PM.IMPN ---
Progress Note: A&P Assessment and Plan (1) Pulmonary embolism: Code(s): I26.99 - Other pulmonary embolism without acute cor pulmonale Status: Acute Assessment and Plan: Patietn with a left apical subsegmental pulmonary embolism. Low clot burden. She also has a superficial venothrombus in the left cephalic vein which could be the source. LE doppler negative for DVT. Discussed with pulmonary and cardiology. No plans for anticoagulation at this time given her underlying risks, recent mental status changes concerning for CVA, and worsening pericardial effusion. Px poor with UE venous thrombus and PE and high risk for anticoagulation. (2) Altered mental status: Code(s): R41.82 - Altered mental status, unspecified Status: Acute Assessment and Plan: Patient is alert but confused. Etiology uncleared but consider CVA. Initial CT brain okay so this was repeated and also showing no acute changes. Does not exclude CVA. B12/Folate/TSH/Ammonia normal. Neurology following. Discussed with Speech therapy and diet started. Continue PT/OT. (3) Pericardial effusion: Code(s): I31.3 - Pericardial effusion (noninflammatory) Status: Acute Assessment and Plan: CT chest showing cardiomegaly with progression to now moderate-sized pericardial effusion when compared to CT 06/23/20. Echo today showing moderate circumferential pericardial effusion up to 1.4cm without evidence of tamponade physiology. Cardiology following. (4) Acute on chronic respiratory failure: Code(s): J96.20 - Acute and chronic respiratory failure, unspecified whether with hypoxia or hypercapnia Status: Acute Assessment and Plan: Patient hypoxic at the PCPs office. She wears O2 2L at home but intermittently. In the ED, she is noted to be mostly hypercapneic and only mildly hypoxic. Home BiPAP was being arranged last admission but was refusing BiPAP. No Apnea link found in the chart. She may be using too much O2 at home resulting in the CO2 retention. Probably a component of metabolic acidosis as well; CHARLES related? ABG 08/25 morning showing 7.30/64/87 on 3L. Continues on 3L oxygen by mask. (5) Elevated troponin: Code(s): R77.8 - Other specified abnormalities of plasma proteins Status: Acute Assessment and Plan: Troponin elevated to 0.178. EKG reviewed and showing AFib/RVR but no obvious evidence of ischemic changes. Troponin elevated but flat and probably Type II [place] related to the AFib/RVR, respiratory failure, CHF exacerbation and CHARLES. Cardiology following. (6) Congestive heart failure: Code(s): I50.9 - Heart failure, unspecified Status: Acute Assessment and Plan: Echo on 06/24/20 showing EF of 65-70% with indeterminate diastolic function. She had moderate to severe tricuspid regurgitation and mild pulmonary hypertension. Remains on IV diuretics. Monitor renal function and UOP. Daily weights. Change to oral Lasix when eating. (7) Paroxysmal A-fib: Code(s): I48.0 - Paroxysmal atrial fibrillation Status: Chronic Assessment and Plan: Patient with paroxysmal atrial fibrillation which is chronic. [id number] 5. She is on Coreg 25 mg twice a day which has controlled her rate the past. There may be an issue of medication non compliance. Discussed with Cardiology - patient is also fall risk and overall risk for anti-coagulation outweighs the benefit for pAFib. Appreciate cardiology input. (8) CHARLES (acute kidney injury): Code(s): N17.9 - Acute kidney failure, unspecified Status: Acute Assessment and Plan: Creatinine 1.3 on admission. Over diuresis seems less likely given physical findings. Suspect more likely this is related to poor diastolic compliance and decreased forward flow. Creatinine increased to 1.6 before trending down to 1.1 yesterday. Monitor renal function closely. (9)
--- NOTE | 2020-08-28 14:42 | PM.PNPUL ---
Progress Note: A&P Assessment and Plan (1) Acute on chronic respiratory failure: Code(s): J96.20 - Acute and chronic respiratory failure, unspecified whether with hypoxia or hypercapnia Status: Acute Assessment and Plan: 08/28 She is on room air when she takes her venti-mask off, sat 92%; wearing equivalent of 3 L/min with mask, refuses BiPAP which is for the best as she could not take it off if she needed to do so. No AC for subsegmental PE L apical segment. RN says that family may be contacted about code status etc by hospitalist team. 08/25 Patient with acute on chronic hypoxemic and hypercarbic respiratory failure. She carries a diagnosis of COPD and her CT scan demonstrates mild to moderate centrilobular emphysema. Patient's baseline ABG on 07/02/2020 was 7.39/55/49 and she refused BiPAP at that time. Patient wears 2 L nasal cannula at the group home. Patient required noninvasive ventilation for chronic hypercarbia from COPD to prevent future hospitalizations. Patient presented with a blood gas of 7.23/61/92 on 2 L nasal cannula and at that time was alert and following commands. Repeat ABG 2 hours later 7.25/48/92 listed as room air. Repeat ABG 15 hours later 08/24 05:31 on 1 L NC was 7.24/67/70 and she was talking and following commands. Refused BiPAP now. Etiology of acute on chronic hypercarbic and hypoxic respiratory failure now includes COPD, fluid overload, healthcare associated pneumonia, PE, viral infection (Flu negative, COVID negativetest). She continues to fight with staff and will not wear BiPAP and is now requiring restraints for her altered mentals status. Agree with aggressive diuresis at this time. I will add vancomycin to Levaquin for the possibility of a healthcare associated pneumonia. D Dimer is positive at 2.71. I will obtain CT angiogram to exclude PE. Lower extremity dopplers negative and upper with left cephalic thrombus. 08/[address] angiogram performed this morning with left apical subsegmental PE, larger pericardial effusion from small on 06/23/20 to moderate now, small to moderate bilateral pleural effusions, mild to moderate centrilobular emphysema. In my opinion patient is not an anticoagulation risk because of her altered mental status which may be from an acute embolic stroke and her enlarging pericardial effusion. Neurology and cardiology consulted. Agree with vanco and levaquin for possible NH aquired pneumonia. Dimikaelaes per primary team. Regarding her current altered mental status I doubt that this is due to her hypercarbia as she had 3 blood gases with the same level of hypercarbia that she has currently with a relatively normal mental status. I discussed this with Dr. Dc. 08/27 No distress with sats 96% on RA. She did wear AutoPAP with VAuto mode, EPAP5, Inspire max 15, PSV 5 for 2 hours last night. If she agrees to noninvasive ventilation tonight I will place on AVAPS AE with rate 12, TV 400, EPAP 5, Min inspire 6, max inspire 20, 30% FIO2. ABG in morning if she wears noninvasive. Continue symbicort 80/4.5 2 puffs BID, no wheezes. Continue vanoc and levaquin for possible pneumonia (total antibiotics 7 days). Will follow with you. Subjective Date/time seen: 08/28/20 14:42 Hospital Day 5 Rina Latif is a 79-year-old female seen in f/u for small L apical subsegmental PE; she is not a candidate for anticoagulation due to bleeding LE venous ulcers, and has not been anticoagulated for her PAF for that reason. She had a probable stroke Aug 24 with change in mental status, aphasia, not following commands and increase in pCO2. Her pericardial effusion is larger now moderate, small to mod pleural effusions, centrilobular emphysema. She started O2 in Jul, may have been using too much prior to this admission. She is not eating much today, other than pills with applesauce and pudding. Dr. Ying is planning to talk with her family about code status and pallia
[2020-08-28] MEDS: GLUCOSE ORAL GEL 15 GM OF GLUCSE IN 37.5 GM TUBE PO (16:17)
[2020-08-28 16:23] LABS: Glucose Point of Care 58 (65-105)
[2020-08-28 16:50] LABS: Glucose Point of Care 121 (65-105)
[2020-08-28 18:00] LABS: Vancomycin Trough 17.4 ug/mL (10.0-20.0)
[2020-08-28 20:13] LABS: Glucose Point of Care 138 (65-105)
[2020-08-28] MEDS: SILVERGEL (ELTA) 45 ML 1 APPLIC TOPICAL (21:10)
[2020-08-29] VITALS (22 sets, daily range): BP systolic 88–164; BP diastolic 40–87; PULSE 88–129; RESP 16–24; TEMP 35.8–37.4; O2SAT 92–98
[2020-08-29 00:09] LABS: Glucose Point of Care 106 (65-105)
[2020-08-29 08:00] LABS: Glucose Point of Care 159 (65-105)
[2020-08-29] MEDS: IRON SUCROSE COMPLEX 100 MG in SODIUM CHLORIDE 0.9% IV 50 ML 220 MG IVPB (08:08)
[2020-08-29] MEDS: MULTIVIT W/ IRON, MINERALS 15 ML LIQUID (*BKC) PO (08:08)
[2020-08-29] MEDS: MAGNESIUM OXIDE 200 MG TABLET PO ×2 (08:13→20:58)
[2020-08-29] MEDS: ATORVASTATIN 40 MG TABLET PO (08:13)
[2020-08-29] MEDS: ASPIRIN 81 MG CHEWABLE TABLET PO (08:13)
[2020-08-29] MEDS: CLOPIDOGREL BISULFATE 75 MG TABLET PO (08:13)
[2020-08-29] MEDS: FUROSEMIDE INJ 40 MG/4 ML VIAL IV PUSH (08:13)
[2020-08-29] MEDS: METOPROLOL TARTRATE 50 MG TAB 100 MG PO ×2 (08:15→20:57)
[2020-08-29] MEDS: INSULIN GLARGINE (*BKC) 100 UNITS/ML 15 UNITS SUB-Q (08:27)
[2020-08-29] MEDS: levoFLOXacin 250 MG/D5W 50 ML 250 MG/50 ML BAG 50 MG IVPB (12:03)
[2020-08-29] MEDS: GLUCOSE ORAL GEL 15 GM OF GLUCSE IN 37.5 GM TUBE PO (12:07)
[2020-08-29 12:45] LABS: Glucose Point of Care 57 (65-105)
[2020-08-29 12:45] LABS: Glucose Point of Care 79 (65-105)
--- NOTE | 2020-08-29 13:44 | PM.PNCARD ---
Progress Note: A&P Assessment and Plan (1) Paroxysmal atrial fibrillation with RVR: Code(s): I48.0 - Paroxysmal atrial fibrillation Status: Acute Assessment and Plan: Patient has not been an anticoagulation candidate due to frequent falls, recurrent bleeding secondary to venous stasis ulcers. Now with small pulmonary embolism with low clot burden, superficial cephalic vein thrombosis, negative lower extremity DVT. Heart rate reasonable period carvedilol changed to metoprolol. Compliance with medications keep. Not an anticoagulation candidate as above. Continue current therapy. (2) Acute on chronic respiratory failure: Code(s): J96.20 - Acute and chronic respiratory failure, unspecified whether with hypoxia or hypercapnia Status: Acute Assessment and Plan: History of acute on chronic hypercarbic and hypoxic respiratory failure multifactorial etiologies with small pulmonary embolism, CHF, COPD, possible underlying pneumonia. Vancomycin added to levofloxacin possible healthcare associated pneumonia a pulmonology. Continue O2 supplementation, able to tolerate APAP for a while. Diuresis as tolerated 40 mg IV b.i.d.. Clinically, does not appear to be significantly volume overloaded at this time. On IV ABx. Pulmonology following. May change to oral diuretic if reliably taking p.o. medications. Echocardiogram EF 65-70% blood mild pulmonary hypertension moderate pericardial effusion up to 1.4 cm no tamponade physiology. Mild mitral and moderate tricuspid regurgitation. No vegetation or mobile echodensities. (3) Pulmonary embolism: Code(s): I26.99 - Other pulmonary embolism without acute cor pulmonale Status: Acute Assessment and Plan: Isolated left apical subsegmental embolism with small clot burden. no anticoagulation. Defer to primary service and pulmonology. (4) Coronary artery disease involving [place] coronary artery of [place] heart: Code(s): I25.10 - Atherosclerotic heart disease of [place] coronary artery without angina pectoris Status: Acute Assessment and Plan: Conservative medical management. Continue statin, beta-perez, clopidogrel. ASA added which is fine. Conservative medical management. Conservative measures appropriate. (5) Altered mental status: Code(s): R41.82 - Altered mental status, unspecified Status: Acute Assessment and Plan: More alert but remains confused. 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 Clinical picture nonetheless concerning for stroke. Unable to obtain MRI due to loop recorder implantation. Patient has multiple comorbidities and guarded prognosis. (6) Pericardial effusion: Code(s): I31.3 - Pericardial effusion (noninflammatory) Status: Acute Assessment and Plan: Previously small, moderate on CT scan increased since June 2020. 2D Echo moderate effusion, no tamponade physiology. Incidental, not an acute issue although will monitor clinical status. (7) CHARLES (acute kidney injury): Code(s): N17.9 - Acute kidney failure, unspecified Status: Acute Assessment and Plan: Stable. Continue to monitor. (8) Type 1 diabetes mellitus with hyperglycemia: Code(s): E10.65 - Type 1 diabetes mellitus with hyperglycemia Status: Chronic Assessment and Plan: Per primary service. Subjective Date/time seen: Date of service: 08/29/20 13:44 Follow-up for atrial fibrillation, CHF, confusion, CAD Patient remains confused but more alert today. Patient still not eating, occasionally taking some of her medications. Patient denies shortness of breath, chest pain. Not answering questions reliably however but appears in no distress breathing comfortably with face mask in place. Reported attempts to contact significant other unsuccessful repeatedly. Remains in atrial fibrillation heart rate ranging
--- NOTE | 2020-08-29 13:52 | PC.NURSE ---
This patient, Rina Latif, was transferred to [[facility] ] on 08/29/20 at 1352. Personal belongings sent with patient. Report given to [Ofelia ]. Appropriate documentation sent with patient.
[2020-08-29] MEDS: DEXTROSE 5%/0.9% SOD CHL 1,000 ML 65 ML IV CONT (14:05)
--- NOTE | 2020-08-29 14:11 | PM.PNPUL ---
Progress Note: A&P Assessment and Plan (1) Acute on chronic respiratory failure: Code(s): J96.20 - Acute and chronic respiratory failure, unspecified whether with hypoxia or hypercapnia Status: Acute Assessment and Plan: 08/25 Patient with acute on chronic hypoxemic and hypercarbic respiratory failure. She carries a diagnosis of COPD and her CT scan demonstrates mild to moderate centrilobular emphysema. Patient's baseline ABG on 07/02/2020 was 7.39/55/49 and she refused BiPAP at that time. Patient wears 2 L nasal cannula at the [facility]. Patient required noninvasive ventilation for chronic hypercarbia from COPD to prevent future hospitalizations. Patient presented with a blood gas of 7.23/61/92 on 2 L nasal cannula and at that time was alert and following commands. Repeat ABG 2 hours later 7.25/48/92 listed as room air. Repeat ABG 15 hours later 08/24 05:31 on 1 L NC was 7.24/67/70 and she was talking and following commands. Refused BiPAP now. Etiology of acute on chronic hypercarbic and hypoxic respiratory failure now includes COPD, fluid overload, healthcare associated pneumonia, PE, viral infection (Flu negative, COVID negativetest). She continues to fight with staff and will not wear BiPAP and is now requiring restraints for her altered mentals status. Agree with aggressive diuresis at this time. I will add vancomycin to Levaquin for the possibility of a healthcare associated pneumonia. D Dimer is positive at 2.71. I will obtain CT angiogram to exclude PE. Lower extremity dopplers negative and upper with left cephalic thrombus. 08/[address] angiogram performed this morning with left apical subsegmental PE, larger pericardial effusion from small on 06/23/20 to moderate now, small to moderate bilateral pleural effusions, mild to moderate centrilobular emphysema. In my opinion patient is not an anticoagulation risk because of her altered mental status which may be from an acute embolic stroke and her enlarging pericardial effusion. Neurology and cardiology consulted. Agree with vanco and levaquin for possible NH aquired pneumonia. Diureses per primary team. Regarding her current altered mental status I doubt that this is due to her hypercarbia as she had 3 blood gases with the same level of hypercarbia that she has currently with a relatively normal mental status. I discussed this with Dr. Dc. 08/27 No distress with sats 96% on RA. She did wear AutoPAP with VAuto mode, EPAP5, Inspire max 15, PSV 5 for 2 hours last night. If she agrees to noninvasive ventilation tonight I will place on AVAPS AE with rate 12, TV 400, EPAP 5, Min inspire 6, max inspire 20, 30% FIO2. ABG in morning if she wears noninvasive. Continue symbicort 80/4.5 2 puffs BID, no wheezes. Continue vanoc and levaquin for possible pneumonia (total antibiotics 7 days). 08/28 She is on room air when she takes her venti-mask off, sat 92%; wearing equivalent of 3 L/min with mask, refuses BiPAP which is for the best as she could not take it off if she needed to do so. No AC for subsegmental PE L apical segment. RN says that family may be contacted about code status etc by hospitalist team. 08/29 She answers questions inappropriately, It's ok ; flat affect, not eating much. COde status change is expected. Will follow with you. Subjective Date/time seen: 08/29/20 14:11 Hospital Day 6 Rina Latif is a 79-year-old female seen in f/u for small L apical subsegmental PE; she is not a candidate for anticoagulation due to bleeding LE venous ulcers, probable stroke Aug 24 with change in mental status, aphasia, not following commands and increase in pCO2. Her pericardial effusion is larger now moderate, small to mod pleural effusions, centrilobular emphysema. She started O2 in Jul, may have been using too much prior to this admission. She is now in Room 245, mental status is worse today, saying It's ok to most questions. She was b
--- NOTE | 2020-08-29 14:18 | PC.NURSE ---
This patient, Rina Latif, was received from [facility] on 08/29/20 at 1419. Patient/family oriented to unit policies and routines. Report received from JENA Olmos.
[2020-08-29 16:50] LABS: Glucose Point of Care 122 (65-105)
--- NOTE | 2020-08-29 19:17 | PM.IMPN ---
Progress Note: A&P Assessment and Plan (1) Pericardial effusion: Code(s): I31.3 - Pericardial effusion (noninflammatory) Status: Acute Assessment and Plan: Stable Continue to monitor (2) Pulmonary embolism: Code(s): I26.99 - Other pulmonary embolism without acute cor pulmonale Status: Acute Assessment and Plan: On DAPT Not on novel anticoagulation Stable (3) Altered mental status: Code(s): R41.82 - Altered mental status, unspecified Status: Acute Assessment and Plan: Waxes and wanes. (4) Paroxysmal atrial fibrillation with RVR: Code(s): I48.0 - Paroxysmal atrial fibrillation Status: Acute Assessment and Plan: Rate controlled Continue to monitor (5) Acute on chronic respiratory failure: Code(s): J96.20 - Acute and chronic respiratory failure, unspecified whether with hypoxia or hypercapnia Status: Acute Assessment and Plan: Likely secondary to all of the above On O2 by NC Will do home O2 eval (6) Elevated troponin: Code(s): R77.8 - Other specified abnormalities of plasma proteins Status: Acute Assessment and Plan: Stable (7) Acute exacerbation of chronic obstructive airways disease: Code(s): J44.1 - Chronic obstructive pulmonary disease with (acute) exacerbation Status: Acute Assessment and Plan: Improved (8) Atrial fibrillation with rapid ventricular response: Code(s): I48.91 - Unspecified atrial fibrillation Status: Acute Assessment and Plan: rate controlled Subjective Date/time seen: 08/29/20 19:17 States that she is fine Review of Systems Review of Systems: ROS unobtainable: Yes unobtainable due to medical condition Exam Narrative: Exam Narrative: Lying in bed Const: General: comfortable, no acute distress, alert and awake Nutritional Appearance: cachectic Orientation/consciousness: patient oriented x3 HENMT: Head: normal to inspection and normocephalic Ears: hearing grossly normal bilaterally General nose exam: Normal external nose present Face and sinus: normal facial exam Eyes: General: appearance normal, both eyes and all related structures Pupils: Equal, round and reactive pupils present EOM: EOMs intact bilaterally Neck: Neck: no lymphadenopathy, supple and no JVD Resp: Auscultation: clear to auscultation bilaterally Cardio: Rate: regular rate Rhythm: regular rhythm GI: GI Palp: Yes Soft to palpation and Yes No hepatosplenomegaly present Skin: Rashes: no rashes Neuro: General: oriented to person and CN's II-XI intact bilaterally Cranial nerves: Yes CN's II-XII intact bilaterally and Yes Equal, round and reactive pupils present Cognition (Neuro): abnormal cognition (Delirium waxes and wanes.) Motor exam (neuro): 5/5 motor strength present throughout Extrem: General: no pedal edema Objective Data Vital Signs Vital Signs: Vital Signs - 24 hr 08/28/20 20:00 08/28/20 21:10 08/28/20 21:18 Temperature Pulse Rate 98 95 Respiratory Rate Blood Pressure 86/42 L Pulse Oximetry 94 08/28/20 21:31 08/28/20 22:00 08/29/20 00:00 Temperature 97.6 F Pulse Rate 97 96 Respiratory Rate 18 Blood Pressure 97/56 L 88/49 L Pulse Oximetry 93 08/29/20 00:37 08/29/20 01:49 08/29/20 01:50 Temperature Pulse Rate Respiratory Rate Blood Pressure 92/40 L 124/65 102/70 Pulse Oximetry 08/29/20 02:00 08/29/20 03:13 08/29/20 03:58 Temperature 99.3 F Pulse Rate 94 93 Respiratory Rate 20 Blood Pressure 164/69 H Pulse Oximetry 93 96 08/29/20 04:00 08/29/20 06:00 08/29/20 08:00 Temperature 97.2 F L Pulse Rate 101 H 104 H 96 Respiratory Rate 22 H Blood Pressure 109/72 Pulse Oximetry 98 08/29/20 08:15 08/29/20 10:00 08/29/20 12:00 Temperature Pulse Rate 102 H 99 104 H Respiratory Rate Blood Pressure Pulse Oximetry 08/29/20 12:02 08/29/20 14:00
[2020-08-29] MEDS: SILVERGEL (ELTA) 45 ML 1 APPLIC TOPICAL (21:00)
[2020-08-29 23:24] LABS: Glucose Point of Care 256 (65-105)
[2020-08-30] VITALS (15 sets, daily range): BP systolic 72–123; BP diastolic 44–94; PULSE 79–105; RESP 14–22; TEMP 36–36.2; O2SAT 93–100; BMI 19.7
[2020-08-30] MEDS: LORazepam INJ (*CRX) 2 MG/ML VIAL 0.5 MG IV PUSH (00:15)
--- NOTE | 2020-08-30 01:16 | PC.NURSE ---
Addendum entered by Prince Canela RN 08/30/20 06:33: Message left for Anne Weber for IV access. Original Note: Pt found w/ left AC IV infiltrated. Multiple nurses and warehouse assistant attempted new IV access. One IV was initiated in right AC which infiltrated w/ ativan admin. unable to place new access.
[2020-08-30] MEDS: THYROID 30 MG TABLET PO (06:23)
[2020-08-30 06:41] LABS: Estimated CRCL calculation 25 ml/min; Estimated Glomerular Filt Rate 34
--- NOTE | 2020-08-30 08:17 | PM.PNCARD ---
Progress Note: A&P Additional Plan 79-year-old lady with chronic atrial fibrillation being managed with rate control with metoprolol. Heart rate control is very good. She is obviously not an anticoagulation candidate. No further cardiac recommendations today. Edward Menchaca MD [facility] Subjective Date/time seen: Date of service: 08/30/20 08:17 Interval history: Follow-up visit in this 79-year-old lady with: Chronic atrial fibrillation being managed with rate control. Patient as stated in previous notes is not a candidate for systemic anticoagulation. On this morning's visit she is comfortable but completely incoherent. Exam Const: General: comfortable and no acute distress Other: Elderly thin lady who is in no distress but incoherent HENMT: Mouth: Yes moist mucous membranes Eyes: Sclera: sclerae normal Pupils: Equal, round and reactive pupils present Neck: Neck: supple and no JVD Resp: Effort & Inspection: normal respiratory effort Auscultation: clear to auscultation bilaterally Cardio: Rhythm: abnormal rhythm irregularly irregular GI: GI Palp: Yes Soft to palpation Auscultation: normal bowel sounds Skin: General skin exam: normal color Neuro: Cognition (Neuro): abnormal cognition Extrem: General: normal to inspection Other: Lower extremity ulcers in dressings that are clean and dry and not removed for exam Objective Data Vital Signs Vital Signs: Vital Signs - 24 hr 08/29/20 10:00 08/29/20 12:00 08/29/20 12:02 Temperature 35.8 C L Pulse Rate 99 104 H 94 Respiratory Rate 20 Blood Pressure 120/63 Pulse Oximetry 96 08/29/20 14:00 08/29/20 16:00 08/29/20 20:00 Temperature 36.9 C Pulse Rate 96 102 H 102 H Respiratory Rate 22 H Blood Pressure 102/60 Pulse Oximetry 92 08/29/20 20:57 08/29/20 21:19 08/29/20 23:06 Temperature 36.4 C Pulse Rate 103 H 115 H 88 Respiratory Rate 16 24 H Blood Pressure 129/82 Pulse Oximetry 92 95 08/29/20 23:57 08/29/20 23:59 08/30/20 00:00 Temperature Pulse Rate 129 H 102 H Respiratory Rate Blood Pressure 142/87 H 142/81 H Pulse Oximetry 08/30/20 04:00 08/30/20 05:00 08/30/20 07:01 Temperature 36.0 C L Pulse Rate 105 H 101 H Respiratory Rate 22 H Blood Pressure 123/94 H Pulse Oximetry 99 93 Intake/Output Intake/Output: Intake & Output 08/27/20 08/28/20 08/29/20 08/30/20 23:59 23:59 23:59 23:59 Intake Total 1375 1335 380 0 Output Total 500 Balance 1375 1335 -120 0 Meds/Results Medications: Active Medications Generic Name Dose Route Start Last Admin Trade Name Freq PRN Reason Stop Dose Admin Acetaminophen 650 mg 08/23/20 14:39 Acetaminophen 325 Mg Tablet PO Q4H PRN Mild Pain (1-3) Al Hydrox/Mg Hydrox/Simethicone 30 ml 08/23/20 14:39 Mag Hydrox/Al Hydrox/Simeth 30 Ml Udc PO Q6H PRN Indigestion Albuterol 2 puff 08/23/20 19:52 Albuterol Sulfate (*Sp) Aerosol 1 Puff INHALATION Q4-6H PRN Shortness Of Breath Aspirin 81 mg 08/28/20 08:00 08/29/20 08:13 Aspirin 81 Mg Chewable Tablet PO 81 mg DAILY@0800 KVNG Administration Atorvastatin Calcium 40 mg 08/24/20 09:00 08/29/20 08:13 Atorvastatin 40 Mg Tablet PO 40 mg DAILY KVNG Administration Budesonide/Formoterol Fumarate 2 puff 08/24/20 09:00 08/29/20 08:27 Budesonide/Form 80-4.5 Mcg (*Sp) INHALATION Not Given DAILY KVNG Calcitriol 0.25 mcg 08/25/20 09:00 08/27/20 10:43 Calcitriol 0.25 Mcg Capsule PO Not Given MoWeFr@0900 KVNG Clopidogrel Bisulfate 75 mg 08/24/20 09:00 08/29/20 08:13 Clopidogrel Bisulfate 75 Mg Tablet PO 75 mg DAILY KVNG Administration Dextrose 12.5 gm 08/23/20 19:46 08/25/20 13:06 Dextrose 50% 25 Gm/50 Ml Syringe IV PUSH 12.5 gm PRN PRN Administration Hypoglycemia Protocol Docusate Sodium 100 mg 08/29/20 22:00 08/30/20 06:30 Docusate Sodium Liq 100 Mg/10 Ml Udc PO Not Given Q8HR KVNG
[2020-08-30] MEDS: FUROSEMIDE INJ 40 MG/4 ML VIAL IV PUSH (08:45)
[2020-08-30] MEDS: IRON SUCROSE COMPLEX 100 MG in SODIUM CHLORIDE 0.9% IV 50 ML 220 MG IVPB (08:46)
[2020-08-30] MEDS: ATORVASTATIN 40 MG TABLET PO (08:58)
[2020-08-30] MEDS: METOPROLOL TARTRATE 50 MG TAB 100 MG PO (08:58)
[2020-08-30] MEDS: CLOPIDOGREL BISULFATE 75 MG TABLET PO (08:58)
[2020-08-30] MEDS: PANTOPRAZOLE SOD SESQUIHYDRATE 20 MG TAB PO (08:58)
[2020-08-30] MEDS: MAGNESIUM OXIDE 200 MG TABLET PO ×2 (08:58→21:32)
[2020-08-30] MEDS: MULTIVIT W/ IRON, MINERALS 15 ML LIQUID (*BKC) PO (08:59)
[2020-08-30 09:16] LABS: Glucose Point of Care 105 (65-105)
--- NOTE | 2020-08-30 09:30 | PM.PNPUL ---
Progress Note: A&P Assessment and Plan (1) Acute on chronic respiratory failure: Code(s): J96.20 - Acute and chronic respiratory failure, unspecified whether with hypoxia or hypercapnia Status: Acute Assessment and Plan: 08/25 Patient with acute on chronic hypoxemic and hypercarbic respiratory failure. She carries a diagnosis of COPD and her CT scan demonstrates mild to moderate centrilobular emphysema. Patient's baseline ABG on 07/02/2020 was 7.39/55/49 and she refused BiPAP at that time. Patient wears 2 L nasal cannula at the sn[facility]. Patient required noninvasive ventilation for chronic hypercarbia from COPD to prevent future hospitalizations. Patient presented with a blood gas of 7.23/61/92 on 2 L nasal cannula and at that time was alert and following commands. Repeat ABG 2 hours later 7.25/48/92 listed as room air. Repeat ABG 15 hours later 08/24 05:31 on 1 L NC was 7.24/67/70 and she was talking and following commands. Refused BiPAP now. Etiology of acute on chronic hypercarbic and hypoxic respiratory failure now includes COPD, fluid overload, healthcare associated pneumonia, PE, viral infection (Flu negative, COVID negativetest). She continues to fight with staff and will not wear BiPAP and is now requiring restraints for her altered mentals status. Agree with aggressive diuresis at this time. I will add vancomycin to Levaquin for the possibility of a healthcare associated pneumonia. D Dimer is positive at 2.71. I will obtain CT angiogram to exclude PE. Lower extremity dopplers negative and upper with left cephalic thrombus. 08/[address] angiogram performed this morning with left apical subsegmental PE, larger pericardial effusion from small on 06/23/20 to moderate now, small to moderate bilateral pleural effusions, mild to moderate centrilobular emphysema. In my opinion patient is not an anticoagulation risk because of her altered mental status which may be from an acute embolic stroke and her enlarging pericardial effusion. Neurology and cardiology consulted. Agree with vanco and levaquin for possible NH aquired pneumonia. Diureses per primary team. Regarding her current altered mental status I doubt that this is due to her hypercarbia as she had 3 blood gases with the same level of hypercarbia that she has currently with a relatively normal mental status. I discussed this with Dr. Dc. 08/27 No distress with sats 96% on RA. She did wear AutoPAP with VAuto mode, EPAP5, Inspire max 15, PSV 5 for 2 hours last night. If she agrees to noninvasive ventilation tonight I will place on AVAPS AE with rate 12, TV 400, EPAP 5, Min inspire 6, max inspire 20, 30% FIO2. ABG in morning if she wears noninvasive. Continue symbicort 80/4.5 2 puffs BID, no wheezes. Continue vanoc and levaquin for possible pneumonia (total antibiotics 7 days). 08/28 She is on room air when she takes her venti-mask off, sat 92%; wearing equivalent of 3 L/min with mask, refuses BiPAP which is for the best as she could not take it off if she needed to do so. No AC for subsegmental PE L apical segment. RN says that family may be contacted about code status etc by hospitalist team. 08/29 She answers questions inappropriately, It's ok ; flat affect, not eating much. COde status change is expected. 08/30 Patient unable to safely wear BiPAP for chronic hypercarbic respiratory failure from COPD as she is nonverbal and too debillitated to take machine off if there is a problem. Not an anticoagulation candidate at this time. so will DC at this time. DC antibiotics on 08/31 (s/p 7 days). Discussed with Dr. Kessler. Will sign off. Call with any questions. Subjective Date/time seen: 08/30/20 09:30 Interval history: 08/25 Interval history: Narrative: This is a new patient consult for hypercarbic and hypoxic respiratory failure. This is a 79-year-old female with a history of diastolic congestive heart failure, Afib (not ant
[2020-08-30] MEDS: ASPIRIN 81 MG CHEWABLE TABLET PO (10:41)
[2020-08-30] MEDS: levoFLOXacin 250 MG/D5W 50 ML 250 MG/50 ML BAG 50 MG IVPB (11:32)
[2020-08-30 12:43] LABS: Glucose Point of Care 344 (65-105)
[2020-08-30 12:43] LABS: Glucose Point of Care 235 (65-105)
[2020-08-30 12:43] LABS: Glucose Point of Care 223 (65-105)
[2020-08-30] MEDS: INSULIN ASPART (*BKC) 100 UNITS/ML SUB-Q ×2 (12:45→17:56)
[2020-08-30] MEDS: SODIUM CHLORIDE 0.9% IV 250 ML 999 ML IV CONT (14:20)
[2020-08-30] MEDS: DOCUSATE SODIUM LIQ 100 MG/10 ML UDC PO ×2 (14:39→21:32)
[2020-08-30 15:26] LABS: Basophils Percent Auto 0.6 % (0.2-1.2); Eosinophils Absolute Auto 0.2 K/mm3 (0-0.3); Eosinophils Percent Auto 3.2 % (0-4.4); Hematocrit 39.3 % (37.0-47.0); Hemoglobin 11.4 g/dL (12.0-15.0); Immature Granulocyte Absolute 0.02 K/mm3 (0.00-0.031); Immature Granulocyte Percent A 0.3 % (0-0.5); Lymphocytes Absolute Auto 1.01 K/mm3 (0.9-3.2); Lymphocytes Percent Auto 14.8 % (18.3-44.2); Mean Corpuscular Hemoglobin 25.1 pg (26-34); Mean Corpuscular Volume 86.4 fl (80-100); Mean Platelet Volume 9.6 fl (7.4-10.4); Monocytes Absolute Auto 0.7 K/mm3 (0.1-0.6); Monocytes Percent Auto 10.8 % (2.6-8.5); Neutrophils Absolute Auto 4.8 K/mm3 (1.3-6.7); Neutrophils Percent Auto 70.3 % (45.5-73.1); Platelet Count Result 244 k/mm3 (150-375); Red Blood Count 4.55 M/mm3 (4.2-5.4); White Blood Count 6.8 K/mm3 (4.5-10.0)
[2020-08-30 15:40] LABS: Blood Urea Nitrogen 34 mg/dL (7-17); Carbon Dioxide > 40 mmol/L (22-30); Chloride 89 mmol/L (98-107); Estimated CRCL calculation 25 ml/min; Estimated Glomerular Filt Rate 34; Glucose 220 mg/dL (65-105); Potassium 3.6 mmol/L (3.4-5.0); Sodium 138 mmol/L (137-145)
[2020-08-30] MEDS: SODIUM CHLORIDE 0.9% IV 1,000 ML 75 ML IV CONT (15:49)
[2020-08-30 18:21] LABS: SARS-CoV-2 RNA PCR Negative
[2020-08-30 19:02] LABS: Glucose Point of Care 213 (65-105)
[2020-08-30] MEDS: SILVERGEL (ELTA) 45 ML 1 APPLIC TOPICAL (21:31)
[2020-08-30 21:35] LABS: Glucose Point of Care 222 (65-105)
[2020-08-31] VITALS (10 sets, daily range): BP systolic 100–116; BP diastolic 48–72; PULSE 58–106; RESP 16; TEMP 36.1–36.6; O2SAT 92–99
[2020-08-31] MEDS: DOCUSATE SODIUM LIQ 100 MG/10 ML UDC PO (05:47)
[2020-08-31 07:59] LABS: Glucose Point of Care 197 (65-105)
[2020-08-31] MEDS: FUROSEMIDE INJ 40 MG/4 ML VIAL IV PUSH (09:08)
--- NOTE | 2020-08-31 09:21 | PM.PNCARD ---
Progress Note: A&P Assessment and Plan (1) Paroxysmal atrial fibrillation with RVR: Code(s): I48.0 - Paroxysmal atrial fibrillation Status: Acute Assessment and Plan: Patient has not been an anticoagulation candidate due to frequent falls, recurrent bleeding secondary to venous stasis ulcers. Now with small pulmonary embolism with low clot burden, superficial cephalic vein thrombosis, negative lower extremity DVT. Heart rate reasonable period carvedilol changed to metoprolol. Refused her p.o. meds this morning. Not an anticoagulation candidate as above. Continue current therapy. (2) Acute on chronic respiratory failure: Code(s): J96.20 - Acute and chronic respiratory failure, unspecified whether with hypoxia or hypercapnia Status: Acute Assessment and Plan: History of acute on chronic hypercarbic and hypoxic respiratory failure multifactorial etiologies with small pulmonary embolism, CHF, COPD, possible underlying pneumonia. On antibiotics. Continue O2 supplementation, able to tolerate APAP for a while. Diuresis as tolerated 40 mg IV b.i.d.. Clinically, does not appear to be significantly volume overloaded at this time. Pulmonology following. May change to oral diuretic if reliably taking p.o. medications. Echocardiogram EF 65-70% blood mild pulmonary hypertension moderate pericardial effusion up to 1.4 cm no tamponade physiology. Mild mitral and moderate tricuspid regurgitation. No vegetation or mobile echodensities. (3) Pulmonary embolism: Code(s): I26.99 - Other pulmonary embolism without acute cor pulmonale Status: Acute Assessment and Plan: Isolated left apical subsegmental embolism with small clot burden. no anticoagulation. Defer to primary service and pulmonology. (4) Coronary artery disease involving cantwell coronary artery of cantwell heart: Code(s): I25.10 - Atherosclerotic heart disease of cantwell coronary artery without angina pectoris Status: Acute Assessment and Plan: Conservative medical management. Continue statin, beta-perez, clopidogrel. ASA added which is fine. Conservative medical management. (5) Altered mental status: Code(s): R41.82 - Altered mental status, unspecified Status: Acute Assessment and Plan: More alert but remains confused. 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 Clinical picture nonetheless concerning for stroke. Unable to obtain MRI due to loop recorder implantation. Patient has multiple comorbidities and guarded prognosis. (6) Pericardial effusion: Code(s): I31.3 - Pericardial effusion (noninflammatory) Status: Acute Assessment and Plan: Previously small, moderate on CT scan increased since June 2020. 2D Echo moderate effusion, no tamponade physiology. Incidental, not an acute issue although will monitor clinical status. (7) CHARLES (acute kidney injury): Code(s): N17.9 - Acute kidney failure, unspecified Status: Acute Assessment and Plan: Stable. Continue to monitor. (8) Ecchymosis: Code(s): R58 - Hemorrhage, not elsewhere classified Status: Acute Assessment and Plan: Ecchymosis of right lower neck noted; RN doesn't know hx of this but will look it up, wondered if she sustained that when she was combattive. Subjective Date/time seen: 08/31/20 09:21 Interval history: Follow-up visit in this 79-year-old lady with: Chronic atrial fibrillation being managed with rate control. Patient as stated in previous notes is not a candidate for systemic anticoagulation. 08/30/2020: On this morning's visit she is comfortable bu
--- NOTE | 2020-08-31 10:15 | PC.NURSE ---
Batch Dumper called Dr. Kessler made aware pt refused all PO medications she did allow her IV lasix to be administered. She refused breakfast this Am. DARIEL Harden in room and aware.
[2020-08-31 11:32] LABS: Glucose Point of Care 245 (65-105)
[2020-08-31] MEDS: INSULIN ASPART (*BKC) 100 UNITS/ML SUB-Q (11:59)
[2020-08-31] MEDS: levoFLOXacin 250 MG/D5W 50 ML 250 MG/50 ML BAG 50 MG IVPB (12:00)
--- NOTE | 2020-08-31 12:52 | P.CDI_ITS ---
CDI Query Clarification Request 1)-Pt admitted 08/23 -CTA done 08/26 impression development of left apical subsegmental PE -PE documented 08/26 Please clarify if pulmonary embolism was: Present on admission Not present on admission Unable to determine 2)- Troponin elevated but flat and probably Type II PA related to the AFib/RVR, respiratory failure, CHF exacerbation and CHARLES. Cardiology following. Documented by hospitalists. - Mild troponin elevation on presentation fairly flat multifactorial acute hypoxic respiratory failure, atrial fibrillation with rapid ventricular response, underlying CAD, acute on chronic renal insufficiency unlikely acute coronary syndrome. documented by cardiology. -No chest pain or ischemic changes on EKG documented. EF 65-70% documented. Please clarify conflicting documentation. Do elevated troponins signify: * Type II PA * Non-ischemic myocardial injury * Other * Unable to determine <Lucy Guaman RN - Last Filed: 08/31/20 13:05> Clarified Diagnosis (1) Pulmonary embolism: Code(s): I26.99 - Other pulmonary embolism without acute cor pulmonale <Lucy Guaman RN - Last Filed: 08/31/20 13:05> Status: Acute <Lucy Guaman RN - Last Filed: 08/31/20 13:05> Assessment and Plan: Unable to tell if present on admission as CTA was obtained 3 days after. <Jovany Kessler MD - Last Filed: 08/31/20 16:12> (2) Elevated troponin: Code(s): R77.8 - Other specified abnormalities of plasma proteins <Lucy Guaman RN - Last Filed: 08/31/20 13:05> Status: Acute <Lucy Guaman RN - Last Filed: 08/31/20 13:05> Assessment and Plan: Secondary to non ischemic myocardial injury <Jovany Kessler MD - Last Filed: 08/31/20 16:12>
[2020-08-31 18:16] LABS: Glucose Point of Care 195 (65-105)
[2020-08-31] MEDS: SILVERGEL (ELTA) 45 ML 1 APPLIC TOPICAL (21:06)
[2020-08-31 21:51] LABS: Glucose Point of Care 224 (65-105)
[2020-09-01] VITALS (8 sets, daily range): BP systolic 103–124; BP diastolic 65–69; PULSE 69–107; RESP 16; TEMP 36.3–36.4; O2SAT 94–100
[2020-09-01 07:51] LABS: Glucose Point of Care 216 (65-105)
[2020-09-01] MEDS: INSULIN ASPART (*BKC) 100 UNITS/ML SUB-Q (08:11)
[2020-09-01] MEDS: FUROSEMIDE INJ 40 MG/4 ML VIAL IV PUSH (08:13)
--- NOTE | 2020-09-01 10:04 | PC.NURSE ---
Pt unable to comprehend how to take oral medications. Multiple attempts made to get pt to eat multiple types of food, with no success. Pt would spit out tongue and say gross every time. Primary RN Precious aware and notifying provider.
--- NOTE | 2020-09-01 11:11 | PM.PNCARD ---
Progress Note: A&P Assessment and Plan (1) Paroxysmal atrial fibrillation with RVR: Code(s): I48.0 - Paroxysmal atrial fibrillation Status: Acute Assessment and Plan: Patient has not been an anticoagulation candidate due to frequent falls, recurrent bleeding secondary to venous stasis ulcers. Heart rate reasonable even though she is not taking the metoprolol. Spit out her p.o. meds again this morning. Continue current therapy; try crushing metoprolol. Called pharmacy, they do not have liquid metoprolol. (2) Congestive heart failure: Code(s): I50.9 - Heart failure, unspecified Status: Acute Assessment and Plan: Acute diastolic CHF improved; looks euvolemic but still has rales. Check CXR and BMP tmr to reassess; don't want to overdiurese. Will change Lasix to po (and hope she takes it!). (3) Acute on chronic respiratory failure: Code(s): J96.20 - Acute and chronic respiratory failure, unspecified whether with hypoxia or hypercapnia Status: Acute Assessment and Plan: History of acute on chronic hypercarbic and hypoxic respiratory failure multifactorial etiologies with small pulmonary embolism, CHF, COPD, possible underlying pneumonia. On antibiotics. Continue O2 supplementation, at baseline 2 L home O2. (4) Pulmonary embolism: Code(s): I26.99 - Other pulmonary embolism without acute cor pulmonale Status: Acute Assessment and Plan: Isolated left apical subsegmental embolism with small clot burden. no anticoagulation. Defer to primary service and pulmonology. (5) Coronary artery disease involving [place] coronary artery of [place] heart: Code(s): I25.10 - Atherosclerotic heart disease of [place] coronary artery without angina pectoris Status: Acute Assessment and Plan: Conservative medical management. Continue statin, beta-perez, clopidogrel. ASA added which is fine. (6) Altered mental status: Code(s): R41.82 - Altered mental status, unspecified Status: Acute Assessment and Plan: More alert but remains confused. 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 (7) Pericardial effusion: Code(s): I31.3 - Pericardial effusion (noninflammatory) Status: Acute Assessment and Plan: Echocardiogram EF 65-70% blood mild pulmonary hypertension moderate pericardial effusion up to 1.4 cm no tamponade physiology. Mild mitral and moderate tricuspid regurgitation. No vegetation or mobile echodensities. Previously small, moderate on CT scan increased since June 2020. Incidental, not an acute issue although will monitor clinical status. (8) CHARLES (acute kidney injury): Code(s): N17.9 - Acute kidney failure, unspecified Status: Acute Assessment and Plan: Stable. Continue to monitor. (9) Noncompliance: Code(s): Z91.19 - Patient's noncompliance with other medical treatment and regimen Status: Acute Assessment and Plan: Spitting out pills 2nd confusion. Will hold nonessential meds, DC the mag oxide and try crushing the others. Subjective Date/time seen: 09/01/20 11:11 Interval history: Follow-up visit in this 79-year-old lady with: Chronic atrial fibrillation being managed with rate control. Patient as stated in previous notes is not a candidate for systemic anticoagulation. 08/30/2020: On this morning's visit she is comfortable but completely incoherent. AFib rate controlled 08/31/2020: Patient withdrawn but states ?I feel good.? Refused her medications this morning. Apparently had a good night. Telemetry s
[2020-09-01 11:29] LABS: Glucose Point of Care 154 (65-105)
--- NOTE | 2020-09-01 12:02 | PCNFU ---
Nutrition Follow-Up Complete: Inadequate Oral Intake as related to continuous bipap as evidenced by poor po intake indicated. Goal:Meet estimated nutritional needs Limited progress towards goal. We will continue current goal. Pt current nutrition is Pureed, Level 4 with Mild Thickened, Level 2 with Glucerna shakes BID Last recorded weight is 56.4 kg,stable Bowel Motility:+BM reported. Labs Reviewed:no new labs to report. Meds Noted: Patient is not taking meds orders. Additional Notes: Patient seen today for nutrition follow up. Spoke with nursing today, she states patient is not taking medications. Patient has been refusing meals and has not been wearing oxygen. Plans for NH at discharge. PO intake is encouraged. Monitoring: Will monitor every 3 days.
--- NOTE | 2020-09-01 14:16 | PC.NURSE ---
On 09/01/20, the student, [ Jesenia Fernández], provided care and completed [facility] documentation on this patient. I have reviewed the student's documentation and agree with the findings.
--- NOTE | 2020-09-01 14:28 | PM.DS ---
DS: Admitting Diagnosis Admitting Diagnosis Admitting Diagnosis: (1) Acute on chronic respiratory failure: (2) Elevated troponin: (3) Congestive heart failure: (4) Paroxysmal A-fib: (5) CHARLES (acute kidney injury): (6) Hypomagnesemia: (7) Type 1 diabetes mellitus with hyperglycemia: (8) Anemia: DS: Discharge Diagnosis Discharge Diagnosis (1) Acute hypercapnic respiratory failure: Code(s): J96.02 - Acute respiratory failure with hypercapnia Status: Acute (2) Altered mental status: Code(s): R41.82 - Altered mental status, unspecified Status: Acute (3) Acute exacerbation of chronic obstructive airways disease: Code(s): J44.1 - Chronic obstructive pulmonary disease with (acute) exacerbation Status: Acute (4) Paroxysmal atrial fibrillation with RVR: Code(s): I48.0 - Paroxysmal atrial fibrillation Status: Acute (5) Pulmonary embolism: Code(s): I26.99 - Other pulmonary embolism without acute cor pulmonale Status: Acute (6) CHARLES (acute kidney injury): Code(s): N17.9 - Acute kidney failure, unspecified Status: Acute (7) Hypomagnesemia: Code(s): E83.42 - Hypomagnesemia Status: Acute (8) Elevated troponin: Code(s): R77.8 - Other specified abnormalities of plasma proteins Status: Acute (9) Atrial fibrillation with rapid ventricular response: Code(s): I48.91 - Unspecified atrial fibrillation Status: Acute (10) Coronary artery disease involving [place] coronary artery of [place] heart: Code(s): I25.10 - Atherosclerotic heart disease of [place] coronary artery without angina pectoris Status: Acute (11) GERD (gastroesophageal reflux disease): Code(s): K21.9 - Gastro-esophageal reflux disease without esophagitis Status: Acute (12) Osteoporosis: Code(s): M81.0 - Age-related osteoporosis without current pathological fracture Status: Acute (13) Pericardial effusion: Code(s): I31.3 - Pericardial effusion (noninflammatory) Status: Acute DS: Summary Hospital Course Reason for hospitalization: SOB Hospital Course: Rina Latif is a 79 year old female with dCHF and chronic respiratory failure sent to the ED from the primary care doctor's office for hypoxia and possible CHF. Patient seen in ED on 06/23/20 for fall and leg edema. She was found to be in AFib but Cardiology notes state that she has chronic paroxysmal AFib. She was not taking the correct Coreg dose (25mg BID) per the notes. She cannot tolerate anticoagulation due to bleeding from venous ulcers. It was felt that she had new onset CHF and was treated with diuresis. Echo showing EF 65-70% but diastolic function unable to be determined. She was also noted to have hypoxia and hypercarbia and was seen by Pulmonary. Trying to arrange for home BiPAP but she was refusing BiPAP while hospitalized. Discharged home on Lasix 40mg dialy, Coreg 25mg BID, and home on 2L nasal cannula on 07/02/20 . Procedures: no procedures Consults: 1-Neurology 2-Cardiology 3-Pulmonology Patient refused to wear BiPAP but gradually after diuresis and breathing treatments was able to stay on [address] head did not reveal any new strokes 2DECHO showed moderate size pericardial effusion with no tamponade She was placed on antibiotics for possible pneumonia Had discussion over th phone with her POA and decision was made to make her a DNR as she lacked decision making capacity due to encephalopathy Time Spent with Patient Time attestation: Total time spent providing and/or coordinating discharge services: Exam Const: General: cooperative, no acute distress, alert, awake and Physically active Nutritional Appearance: thin Orientation/consciousness: oriented to person HENMT: Head: normal to inspection and atraumatic Ears: hearing grossly normal bilaterally General nose
[2020-09-01 16:57] LABS: Glucose Point of Care 187 (65-105)
--- NOTE | 2020-10-16 16:56 | PM.IMPN ---
Progress Note: A&P Assessment and Plan (1) Acute on chronic respiratory failure: Code(s): J96.20 - Acute and chronic respiratory failure, unspecified whether with hypoxia or hypercapnia Status: Acute Assessment and Plan: Patient is unable to wear BiPAP Patient on 2 L by nasal cannula (2) Acute exacerbation of chronic obstructive pulmonary disease: Code(s): J44.1 - Chronic obstructive pulmonary disease with (acute) exacerbation Status: Chronic Assessment and Plan: Improved (3) Pericardial effusion: Code(s): I31.3 - Pericardial effusion (noninflammatory) Status: Acute Assessment and Plan: Pericardial effusion but no tamponade (4) Pulmonary embolism: Code(s): I26.99 - Other pulmonary embolism without acute cor pulmonale Status: Acute Assessment and Plan: Not a candidate for anticoagulation due to patient's current condition recurrent falls (5) Paroxysmal atrial fibrillation with RVR: Code(s): I48.0 - Paroxysmal atrial fibrillation Status: Acute Assessment and Plan: Rate controlled (6) Altered mental status: Code(s): R41.82 - Altered mental status, unspecified Status: Acute Assessment and Plan: Patient with likely underlying dementia Subjective Date/time seen: 10/16/20 16:56 This is a late entry note patient was seen and examined on 08/31/20 Review of Systems Review of Systems: ROS unobtainable: Yes unobtainable due to medical condition Exam Narrative: Exam Narrative: Lying in bed in no acute distress Const: General: comfortable, no acute distress, alert and awake Nutritional Appearance: cachectic Orientation/consciousness: oriented to person HENMT: Head: normal to inspection, normocephalic and atraumatic Ears: hearing grossly normal bilaterally Face and sinus: normal facial exam Eyes: General: appearance normal, both eyes and all related structures Pupils: Equal, round and reactive pupils present EOM: EOMs intact bilaterally Neck: Neck: full ROM, no lymphadenopathy and no JVD Thyroid: thyroid normal Lymphatic: no lymphadenopathy noted Resp: Effort & Inspection: normal respiratory effort and able to speak in complete sentences Auscultation: clear to auscultation bilaterally Cardio: Jugular venous distension: no JVD Rate: regular rate Rhythm: regular rhythm Heart sounds: S1 normal heart sound present and S2 normal heart sound present GI: GI Palp: Yes Soft to palpation and Yes No hepatosplenomegaly present : General: Yes deferred Skin: Rashes: no rashes Wounds: no wounds Neuro: General: patient oriented x3 and CN's II-XI intact bilaterally Cranial nerves: Yes CN's II-XII intact bilaterally and Yes Equal, round and reactive pupils present Cognition (Neuro): abnormal cognition (Daily waxes and wanes) Speech: normal speech Gait exam (Neuro): Normal gait present Motor exam (neuro): 5/5 motor strength present throughout Extrem: General: normal to inspection, full ROM, no joint enlargement and no pedal edema Objective Data Meds/Results Radiology Results: ITS Impressions Venous Doppler Study 08/25/20 14:05 IMPRESSION: 1. Partial thrombosis of the left cephalic vein. 2. No evidence of deep venous thrombosis on the right. These findings were discussed with Dr. Josey MD at 1408 hours on 08/25/2020. Chest CTA 08/26/20 09:18 IMPRESSION: 1. Development of left apical subsegmental pulmonary embolism, low clot burden. 2. Cardiomegaly. Progression in now moderate-sized pericardial effusion. 3. Progression of small to moderate bilateral pleural effusions. 4. Left basilar multi segmental, right basilar subsegmental atelectasis. 5. Mild to moderate emphysema. 6. Moderate hiatal hernia. I discussed pulmonary embolism with nurse Herrera in the at 08/26/2020 09:26 [employer]. Head CT 08/26/20 12:01 IMPRESSION: 1. No acute intracranial findings. 2. Chronic age related find
--- NOTE | 2020-10-17 17:34 | P.PNIM_ITS ---
Progress Note: A&P Assessment and Plan (1) Paroxysmal atrial fibrillation with RVR: Code(s): I48.0 - Paroxysmal atrial fibrillation Status: Acute Assessment and Plan: Rate controlled (2) Acute exacerbation of chronic obstructive airways disease: Code(s): J44.1 - Chronic obstructive pulmonary disease with (acute) exacerbation Status: Acute Assessment and Plan: Improved continue breathing treatments (3) Chronic kidney disease, stage III (moderate): Code(s): N18.3 - Chronic kidney disease, stage 3 (moderate) Status: Acute Assessment and Plan: Continue to monitor BUN and creatinine (4) GERD (gastroesophageal reflux disease): Code(s): K21.9 - Gastro-esophageal reflux disease without esophagitis Status: Acute Assessment and Plan: On a PPI (5) Altered mental status: Code(s): R41.82 - Altered mental status, unspecified Status: Acute Assessment and Plan: A patient has baseline (6) Pulmonary embolism: Code(s): I26.99 - Other pulmonary embolism without acute cor pulmonale Status: Acute Assessment and Plan: Patient is on dual anti-platelet therapy Subjective Date/time seen: 10/17/20 17:34 Objective Data Meds/Results Radiology Results: ITS Impressions Venous Doppler Study 08/25/20 14:05 IMPRESSION: 1. Partial thrombosis of the left cephalic vein. 2. No evidence of deep venous thrombosis on the right. These findings were discussed with Dr. Josey MD at 1408 hours on 08/25/2020. Chest CTA 08/26/20 09:18 IMPRESSION: 1. Development of left apical subsegmental pulmonary embolism, low clot burden. 2. Cardiomegaly. Progression in now moderate-sized pericardial effusion. 3. Progression of small to moderate bilateral pleural effusions. 4. Left basilar multi segmental, right basilar subsegmental atelectasis. 5. Mild to moderate emphysema. 6. Moderate hiatal hernia. I discussed pulmonary embolism with nurse Herrera in the at 08/26/2020 09:26 [employer]. Head CT 08/26/20 12:01 IMPRESSION: 1. No acute intracranial findings. 2. Chronic age related findings. 3. Old right basal ganglia, left cerebellar infarctions. Chest X-Ray 09/01/20 14:24 IMPRESSION: 1. Improvement in CHF exacerbation. 2. Segmental left basilar opacity, probably atelectasis or pneumonia. 3. Small pleural effusions. 4. Chronic hyperinflation.
== END 2020-09-01 17:20 | DRG 189 ==
LOC: ANHED 14:37 → ANHIMU 15:48 → ANH2MED 08-29 13:45
PROVIDERS: Emergency Medicine Emergency Medical Services; Family Medicine; Internal Medicine; Internal Medicine Pulmonary Disease; Physician Assistant; Admitting Provider Internal Medicine; Emergency Provider Emergency Medicine; PCP Family Medicine; Visit Provider Internal Medicine
DX: J96.21 Acute and chronic respiratory failure with hypoxia (principal); I26.99 Other pulmonary embolism without acute cor pulmonale; I50.33 Acute on chronic diastolic (congestive) heart failure; N17.9 Acute kidney failure, unspecified; I31.3 Pericardial effusion (noninflammatory); J96.22 Acute and chronic respiratory failure with hypercapnia; I27.20 Pulmonary hypertension, unspecified; I48.0 Paroxysmal atrial fibrillation; J43.2 Centrilobular emphysema; R77.8 Other specified abnormalities of plasma proteins; I51.89 Other ill-defined heart diseases; Z20.822 Contact with and (suspected) exposure to COVID-19; Z91.19 Patient's noncompliance with other medical treatment and regimen; R41.82 Altered mental status, unspecified; R58 Hemorrhage, not elsewhere classified; E78.5 Hyperlipidemia, unspecified; E10.65 Type 1 diabetes mellitus with hyperglycemia; D64.9 Anemia, unspecified; E83.42 Hypomagnesemia; R26.81 Unsteadiness on feet; E03.9 Hypothyroidism, unspecified; K21.9 Gastro-esophageal reflux disease without esophagitis; R29.6 Repeated falls; I25.2 Old myocardial infarction; Z79.4 Long term (current) use of insulin; Z79.899 Other long term (current) drug therapy; Z87.11 Personal history of peptic ulcer disease
CPT/HCPCS: 36415; 36600; 51701; 70450; 71045; 71275; 80048; 80053; 80069; 80202; 80307; 81001; 82010; 82140; 82375; 82550; 82565; 82607; 82728; 82746; 82805; 82948; 83036; 83050; 83540; 83550; 83605; 83735; 83880; 84100; 84439; 84443; 84480; 84484; 85025; 85027; 85380; 85610; 85730; 87040; 87086; 87804; 92526; 92610; 93005; 93306; 93970; 94002; 94003; 94640; 94660; 96374; 96375; 97110; 97161; 97165; 97530; 97535; 99285; A9270; C9113; C9803; J1650; J1756; J1815; J1940; J1956; J2060; J3370; J3475; J7030; J7042; J7050; Q9967; U0003; U0005